=== PATIENT | male | born 1945 | race Caucasian/White ===

== ENCOUNTER → 2016-11-21 | Outpatient (CLI) | payer OTHER ==
[~2016-11-21] MED LIST: ALL180 PO; ALPR-411 PO; AMLO-114 PO; ASCA500 PO; ASCO500T16 PO; ASPEC81 PO; ASPI81TA28 PO; B-CO1CAP17 PO; B-COCAP2 PO; CALC-323 PO; CARV25TA2 PO; CYAN100T6 PO; CYCL0.052 OP; DOXA2TAB PO; DVN/160 PO; DVNC160 PO; FEXO1TAB46 PO; GFNSR600 PO; GLC/500 PO; HYDR25TA5 PO; LEVA1NEB20 INH; LEVA45AE INH; LEVO1TAB35 PO; MAGN400T6 PO; MAGNESIUM PO; MULT-506 PO; OXYC-57 PO; PLMINS INH; PRED10TA PO; PRLSR20 PO; PRT40 PO; PSEU60TA80 PO; SPIRONO/HCTZ PO; SPR25 PO; WARF2TAB PO; [UNRECOGNIZED DRUG - CODE] PO
== END | disposition home or self-care (01) ==
LOC: C.RDSM 13:47
PROVIDERS: ATTEND Physical Medicine & Rehabilitation Sports Medicine
DX: Z96.652 Presence of left artificial knee joint (principal)

== ENCOUNTER → 2016-12-21 | Outpatient (CLI) | payer OTHER | END | disposition home or self-care (01) | LOC: C.PATHSPEC 17:43 | PROVIDERS: ATTEND Podiatrist Foot & Ankle Surgery | DX: B07.0 Plantar wart (principal) ==

== ENCOUNTER 2017-01-31 11:30 | Inpatient (IN) | payer OTHER ==
[~2017-01-31] VITALS: Ht 177.8 cm; Wt 94.6 kg
[~2017-01-31 11:30] MED LIST changes: -ASCO500T16 PO; -ASPI81TA28 PO; -B-CO1CAP17 PO; -DVN/160 PO; -FEXO1TAB46 PO; -HYDR25TA5 PO; -LEVA45AE INH; -LEVO1TAB35 PO; -MAGN400T6 PO; -PLMINS INH; -PRED10TA PO; -PRT40 PO; -PSEU60TA80 PO; -SPR25 PO
[2017-01-31] MEDS ORDERED: ALBUT/IPRATROP 3MG/0.5MG NEB 3 ML VIAL INH STA (12:18)
[2017-01-31] MEDS: SODIUM CHLORIDE 0.9% 500ML 500 ML IV STA ×2 (12:18→13:01)
[2017-01-31 13:02] VITALS: PULSE 73; O2SAT 94
[2017-01-31] MEDS ORDERED: PSEU60TA80 PO (13:17)
[2017-01-31] MEDS ORDERED: B-CO1CAP17 PO (13:17)
[2017-01-31] MEDS ORDERED: DVN/160 PO (13:17)
[2017-01-31] MEDS ORDERED: MAGN400T6 PO (13:17)
[2017-01-31] MEDS ORDERED: FEXO1TAB46 PO (13:17)
[2017-01-31] MEDS ORDERED: ASPI81TA28 PO (13:17)
[2017-01-31] MEDS ORDERED: ASCO500T16 PO (13:17)
[2017-01-31] MEDS ORDERED: SPR25 PO (13:17)
[2017-01-31] MEDS ORDERED: HYDR25TA5 PO (13:17)
[2017-01-31] MEDS ORDERED: LEVA45AE INH (13:17)
[2017-01-31 13:41] LABS: ALT/SGPT 32 U/L (12-78); AST/SGOT 28 U/L (15-37); BLOOD UREA NITROGEN 12 mg/dl (7-18); BUN/CREATININE RATIO 13.1 (10-20); CALCIUM 9.4 mg/dl (8.5-10.1); CARBON DIOXIDE 29 mmol/L (21-32); CHLORIDE 94 mmol/L (98-107); CREATININE 0.94 mg/dl (0.60-1.40); GLUCOSE 101 mg/dl (70-99); POTASSIUM 3.8 mmol/L (3.5-5.1); SODIUM 132 mmol/L (136-145)
[2017-01-31 13:45] LABS: ALB/GLOB RATIO 1.1 (0.9-2); ALKALINE PHOSPHATASE 134 U/L (45-117)
--- NOTE | 2017-01-31 14:05 | EMERGENCY ROOM VISIT NOTE ---
ED Visit Note First contact with patient: 12:03 I did evaluate and examine this patient myself. I did guide management for the patient. I agree with the PA's assessment as discussed. Please see the PAs dictation for further details. I did independently review the 12-lead EKG, x- rays and blood work.
[2017-01-31] MEDS ORDERED: OPTIRAY 320 IV PRN (14:15)
[2017-01-31 14:30] LABS: BASO % 0.5 %; BASO ABS # 0.04 K/uL (0-0.2); COMPLETE YES; EOS % 11.4 %; HEMATOCRIT 36.7 % (42-52); IG% 0.3 %; LYMPH % 22.9 %; LYMPH ABS # 1.75 K/uL (1.2-3.4); MEAN CELL VOLUME 87.6 fL (80-100); MEAN CORPUSCULAR HEMOGLOBIN 31.7 pg (25-34); MEAN CORPUSCULAR HGB CONC 36.2 g/dl (32-36); MEAN PLATELET VOLUME 10.5 fL (7.4-10.4); MONO % 18.9 %; PLATELET COUNT 182 K/uL (130-400); RED BLOOD COUNT 4.19 M/uL (4.7-6.1); WHITE BLOOD COUNT 7.63 K/uL (4.8-10.8)
--- NOTE | 2017-01-31 14:33 | DIAGNOSTIC IMAGING REPORT ---
CHEST 2 VIEWS ROUTINE CLINICAL HISTORY: Cough, dyspnea COMPARISON STUDY: 08/26/2016 FINDINGS: The cardiac and mediastinal contours are normal. There is no evidence of focal pulmonary consolidation. There is no evidence of failure. No pleural effusions are visualized.[ There is subtle interstitial thickening with a basilar predominance. This is slightly more pronounced than on the prior study. IMPRESSION: Subtle interstitial thickening which appears slightly progressive. There is no focal pulmonary consolidation. Electronically signed by: Shin Agrawal M.D. 01/31/2017 2:31 PM Dictated Date/Time: 01/31/2017 2:25 PM
--- NOTE | 2017-01-31 15:33 | DIAGNOSTIC IMAGING REPORT ---
CHEST CTA for PULMONARY ARTERIES CT DOSE: 560.95 mGycm HISTORY: Chest pain dyspnea TECHNIQUE: Multiaxial CT images of the chest were performed following the intravenous administration of contrast to evaluate the pulmonary arteries. Maximal intensity projection images were also obtained. COMPARISON STUDY: 05/29/2006 FINDINGS: Pulmonary vasculature enhances appropriately. There are no significant pulmonary emboli. Mildly progressive hilar and mid mediastinal adenopathy. Hilar nodes in the right iliac stent 2 cm and on the left 1.6 cm. Mild esophageal wall thickening. Interval development of a nonspecific interstitial changes as well as mild peribronchial thickening of the mid to lower lung regions bilaterally. Subtle reticular nodular changes of both pulmonary apices. IMPRESSION: 1. Study is negative for pulmonary embolus. 2. Interval development of mild peribronchial thickening and interstitial change of the mid to lower lung regions bilaterally, most likely inflammatory. 3. Mildly progressive hilar adenopathy, possibly reactive. 4. This study should be repeated a later date to ensure resolution as well as exclude any possibility of progressive or residual adenopathy. 5.. Mild generalized esophageal wall thickening similar compared to the prior exam. Electronically signed by: Nishant Slater M.D. 01/31/2017 3:31 PM Dictated Date/Time: 01/31/2017 3:26 PM
[2017-01-31] MEDS ORDERED: METHYLPREDNISOLONE 125 MG VIAL IV STA (18:25)
[2017-01-31] MEDS ORDERED: PNEUMOCOCCAL POLYSACCHARIDES 25 MCG/0.5 ML VIAL/SYR IM. ONE (18:30)
[2017-01-31] MEDS ORDERED: PNEUMOCOCCAL ADMINISTRATION CHARGE ONE (18:30)
[2017-01-31] MEDS ORDERED: ONDANSETRON INJ 2 MG/ML 2 ML VIAL IV PRN (18:30)
[2017-01-31] MEDS ORDERED: INFLUENZA ADMINISTRATION CHARGE ONE (18:30)
[2017-01-31] MEDS ORDERED: ACETAMINOPHEN 325 MG TAB PO PRN (18:30)
[2017-01-31] MEDS ORDERED: INFLUENZA VIRUS QUAD VACCINE 0.5 ML SYR IM. ONE (18:30)
[2017-01-31] MEDS ORDERED: HydrALAZINE HCL 20 MG/ML VIAL IV. PRN (18:45)
[2017-01-31] MEDS ORDERED: LEVOFLOXACIN / D5W 750 MG in PREMIXED IN D5W 150 ML IV SCH (19:00)
[2017-01-31 20:03] LABS: INR 1.1 (0.9-1.1); PROTHROMBIN TIME (PATIENT) 11.4 SECONDS (9.0-12.0)
[2017-01-31] MEDS: LEVALBUTEROL 1.25MG/3ML NEB INH SCH (21:00)
[2017-01-31] MEDS ORDERED: ALPRAZOLAM 0.5 MG TAB PO SCH (21:00)
[2017-01-31] MEDS ORDERED: ENOXAPARIN 40 MG/0.4 ML SYR SC SCH (21:00)
[2017-01-31] MEDS: DOXAZosin MESYLATE TAB 2 MG TAB PO SCH (21:46)
[2017-01-31] MEDS: CALCIUM 600MG + VIT D 400 IU TAB PO SCH (21:47)
[2017-01-31] MEDS: VALSARTAN 80 MG TAB PO SCH (21:48)
[2017-01-31] MEDS: CARVEDILOL 25 MG TAB PO SCH (21:49)
[2017-01-31] MEDS ORDERED: GLUCAGON FOR INJ 1 MG VIAL SQ PRN (22:15)
[2017-01-31] MEDS ORDERED: GLUCOSE 40% GEL 15 GM TUBE PO PRN (22:15)
[2017-01-31] MEDS ORDERED: DEXTROSE 50% 50 ML SYR IV PRN (22:15)
[2017-01-31] MEDS ORDERED: GLUCOSE 10 TABS/TUBE PO PRN (22:15)
[2017-01-31] MEDS: NYSTATIN 500000 UNIT PO SCH (22:30)
[2017-01-31] MEDS: RESTASIS~ORDER AWAITING ACTION SCH ×2 (22:30→23:40)
--- NOTE | 2017-01-31 22:36 | History and Physical ---
History & Physical Date & Time of Service: Jan 31, 2017 at 21:57 Chief Complaint: Copd With Acute Exacerbation Primary Care Physician: Huang Frazier M.D. previously, but now changing to Dr. Ovidio Donald and has not seen him yet History of Present Illness Source: patient, spouse This patient is a 71-year-old male with history of COPD and asthma, chronic sinusitis, asthma with allergic rhinitis, GERD, generalized anxiety disorder, hyperglycemia, hypertension, lower extremity edema, migraines, obesity, obstructive sleep apnea, and peptic ulcer, who presents to the ER with persistent shortness of breath, cough, and wheezing. He reports the symptoms started about 4 days ago, but worsened significantly in the last 2 days. He was so short of breath 2 nights ago that he couldn't sleep and was coughing all night. Yesterday, he called his new PCP office and they called him and doxycycline, but he was not seen. He continued to feel worse and so came into the ER. His cough is productive of green sputum. He did have a subjective fever at home last evening, but did not take his temperature. He has had significant sinus drainage with yellow mucus and a lot of pressure in the maxillary and frontal regions bilaterally. He is also describing a constant chest tightness that wraps like a belt all the way underneath his ribs and around to the back. Because of this, the ER provider did a chest pain workup to include a negative troponin 2, and a CT angiogram of the chest which was negative for PE, but did show interval development of mild peribronchial thickening and interstitial change of the mid to lower lung regions bilaterally, most likely inflammatory. It also showed mildly progressive hilar adenopathy, possibly reactive. His ECG showed a possible inferior infarct, but this was unchanged from previous EKG. He received 1 hour continuous DuoNeb in the ER, but states that it almost made him feel worse because it made his heart race. He has to use Xopenex nebulizers only at home. He was not hypoxic in the ER but because he had continued shortness of breath and persistent cough, he was admitted for COPD/asthma exacerbation with possible superimposed atypical pneumonia and likely acute sinusitis. Past Medical/Surgical History Past medical history: COPD and asthma Chronic sinusitis Allergic rhinitis GERD/PUD Generalized anxiety disorder Diabetes mellitus type 2 Hypertension Migraines Obesity Obstructive sleep apnea Past surgical history: Bilateral rotator cuff repairs Left TKA Bilateral carpal tunnel release Sinus surgery 3 UPPP Family History Mother with CAD and hypertension Father and all siblings with hypertension Social History Smoking Status: Former Smoker (infrequent secondhand smoke exposure as he is a edwards in bars) Alcohol Use: socially (3 times a month) Drug Use: none Marital Status: Housing status: lives with family 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) Immunizations History of Influenza Vaccine: Unknown History of Tetanus Vaccine?: Unknown History of Pneumococcal: No History of Hepatitis B Vaccine: Unknown Multi-Drug Resistant Organisms History of MDRO: No Allergies Coded Allergies: Codeine (Verified Adverse Reaction, Mild, NAUSEA, 01/31/17) Erythromycin (Verified Adverse Reaction, Unknown, GI UPSET, 01/31/17) Meperidine (Verified Adverse Reaction, Unknown, gi upset, 01/31/17) Home Medications Scheduled Alprazolam (Xanax), 0.5 MG PO HS Amlodipine (Norvasc), 5 MG PO QAM Ascorbic Acid (Ascorbic Acid), 500 MG PO DAILY Aspirin (Aspirin Ec), 81 MG PO DAILY Calcium Citrate-Vitamin D (Citracal Maximum), 1 TAB PO BID Carvedilol (Coreg), 25 MG PO BID Cyanocobalamin (Vitamin B12 100 Mcg), 100 MCG PO QAM Cyclosporine (Ophth) (Restasis), 1 DROP OP BID Doxazosin Mesylate (Cardura), 2 MG PO BID Fexofenadine Hcl (Dagmar), 180 MG PO DAILY Hydrochlorothiazide (Hydrochlorothiazide), 1 TAB PO DAILY Levalbuterol Tartrate (Levalbuterol Tartrate Hfa), Unknown Dose INH BID Magnesium Oxide (Mag-Ox), 400 MG PO DAILY Metformin Hcl (Glucophage), 500 MG PO QAM Multivitamin (Multivitamin), 1 TAB PO QAM Nystatin (Bio-Statin), 1 TAB PO BID Omeprazole (Prilosec), 20 MG PO QAM Pseudoephedrine-Guaifenesin (Mucinex D), 600 MG PO BID Spironolactone (Spironolactone), 1 TAB PO DAILY Valsartan (Diovan), 1 TAB PO BID Vitamin B Cmplx/Vitc/Folic Ac (Nephrocaps), 1 CAP PO DAILY Review of Systems Constitutional: + chills, + fever Eyes: No problem reported ENT: + problem reported (sinus pressure and drainage with frontal headache), No sore throat Respiratory: + cough, + dyspnea on exertion, + shortness of breath, + sputum, + wheezing, No hemoptysis Cardiovascular: + chest pain (underneath ribs as per history of present illness ) Abdomen: No diarrhea, No nausea, No pain, No vomiting Genitourinary - Male: No problem reported Neurologic: No problem reported Psychiatric: + anxiety Endocrine: No problem reported Hematologic / Lymphatic: No problem reported Integumentary: + new/changing skin lesions (has a left breast lump that was evaluated earlier today as an outpatient with a normal mammogram and ultrasound) Allergic / Immunologic: + environmental allergies Physical Exam Vital Signs Date Time Temp Pulse Resp B/P Pulse Ox O2 Delivery O2 Flow Rate FiO2 01/31/17 19:33 57 01/31/17 19:18 60 18 153/84 94 Room Air 01/31/17 16:52 55 18 191/96 96 Room Air 01/31/17 14:52 53 20 143/97 94 Room Air 01/31/17 14:12 53 18 156/89 99 Nebulizer 01/31/17 13:44 60 20 167/92 99 Nebulizer 01/31/17 13:02 73 14 94 Room Air 01/31/17 12:59 60 22 158/96 95 Room Air 01/31/17 11:54 97 Room Air 01/31/17 11:54 61 20 164/96 97 Room Air 01/31/17 11:38 36.9 61 20 158/91 95 Room Air General Appearance: WD/WN, no apparent distress Head: normocephalic, atraumatic Eyes: normal inspection, PERRL, EOMI, sclerae normal ENT: normal ENT inspection, hearing grossly normal, TMs normal, pharynx normal , + nasal congestion, + pertinent finding (tenderness over bilateral maxillary and medial eyebrows) Neck: supple, no adenopathy, thyroid normal, no JVD, no carotid bruits, trachea midline Respiratory/Chest: no respiratory distress, no accessory muscle use, + crackles (at left base, slightly diminished breath sounds throughout, no wheezes) Cardiovascular: regular rate, rhythm, no edema, no gallop, no murmur, normal peripheral pulses Abdomen/GI: normal bowel sounds, non tender, soft, no organomegaly, no pulsatile mass Back: normal range of motion Extremities/Musculoskelatal: no calf tenderness, no pedal edema, normal range of motion Neurologic/Psych: alert, normal mood/affect, oriented x 3 Skin: normal color, warm/dry, no rash Lymphatic: no adenopathy Diagnostics Laboratory Results Results Past 24 Hours Test 01/31/17 12:50 01/31/17 12:55 01/31/17 16:20 01/31/17 19:40 Range/Units Influenza Type A Antigen Neg for Influ A NEG Influenza Type B Antigen Neg for Influ B NEG White Blood Count 7.63 4.8-10.8 K/uL Red Blood Count 4.19 4.7-6.1 M/uL Hemoglobin 13.3 14.0-18.0 g/dL Hematocrit 36.7 42-52 % Mean Corpuscular Volume 87.6 80-100 fL Mean Corpuscular Hemoglobin 31.7 25-34 pg Mean Corpuscular Hemoglobin Concent 36.2 32-36 g/dl Platelet Count 182 130-400 K/uL Mean Platelet Volume 10.5 7.4-10.4 fL Neutrophils (%) (Auto) 46.0 % Lymphocytes (%) (Auto) 22.9 % Monocytes (%) (Auto) 18.9 % Eosinophils (%) (Auto) 11.4 % Basophils (%) (Auto) 0.5 % Neutrophils # (Auto) 3.51 1.4-6.5 K/uL Lymphocytes # (Auto) 1.75 1.2-3.4 K/uL Monocytes # (Auto) 1.44 0.11-0.59 K/uL Eosinophils # (Auto) 0.87 0-0.5 K/uL Basophils # (Auto) 0.04 0-0.2 K/uL RDW Standard Deviation 39.0 36.4-46.3 fL RDW Coefficient of Variation 12.2 11.5-14.5 % Immature Granulocyte % (Auto) 0.3 % Immature Granulocyte # (Auto) 0.02 0.00-0.02 K/uL D-Dimer 1160 0-500 ug/L FEU Sodium Level 132 136-145 mmol/L Potassium Level 3.8 3.5-5.1 mmol/L Chloride Level 94 98-107 mmol/L Carbon Dioxide Level 29 21-32 mmol/L Anion Gap 9.0 3-11 mmol/L Blood Urea Nitrogen 12 7-18 mg/dl Creatinine 0.94 0.60-1.40 mg/dl Est Creatinine Clear Calc Drug Dose 83.5 ml/min Estimated GFR () 93.5 Estimated GFR (Non- 80.7 BUN/Creatinine Ratio 13.1 10-20 Random Glucose 101 70-99 mg/dl Calcium Level 9.4 8.5-10.1 mg/dl Total Bilirubin 0.5 0.2-1 mg/dl Aspartate Amino Transf (AST/SGOT) 28 15-37 U/L Alanine Aminotransferase (ALT/SGPT) 32 12-78 U/L Alkaline Phosphatase 134 45-117 U/L Troponin I < 0.015 < 0.015 0-0.045 ng/ml Total Protein 7.6 6.4-8.2 gm/dl Albumin 3.9 3.4-5.0 gm/dl Globulin 3.7 2.5-4.0 gm/dl Albumin/Globulin Ratio 1.1 0.9-2 Prothrombin Time 11.4 9.0-12.0 SECONDS Prothromb Time International Ratio 1.1 0.9-1.1 Microbiology Results 01/31/17 Group A Streptococcus Screen - Final, Resulted SPECIMEN NEGATIVE FOR GROUP A BETA ST... 01/31/17 Group A Streptococcus Screen ([facility]), Resulted Pending Diagnostic Radiology CHEST 2 VIEWS ROUTINE CLINICAL HISTORY: Cough, dyspnea COMPARISON STUDY: 08/26/2016 FINDINGS: The cardiac and mediastinal contours are normal. There is no evidence of focal pulmonary consolidation. There is no evidence of failure. No pleural effusions are visualized.[ There is subtle interstitial thickening with a basilar predominance. This is slightly more pronounced than on the prior study. IMPRESSION: Subtle interstitial thickening which appears slightly progressive. There is no focal pulmonary consolidation. CHEST CTA for PULMONARY ARTERIES CT DOSE: 560.95 mGycm HISTORY: Chest pain dyspnea TECHNIQUE: Multiaxial CT images of the chest were performed following the intravenous administration of contrast to evaluate the pulmonary arteries. Maximal intensity projection images were also obtained. COMPARISON STUDY: 05/29/2006 FINDINGS: Pulmonary vasculature enhances appropriately. There are no significant pulmonary emboli. Mildly progressive hilar and mid mediastinal adenopathy. Hilar nodes in the right iliac stent 2 cm and on the left 1.6 cm. Mild esophageal wall thickening. Interval development of a nonspecific interstitial changes as well as mild peribronchial thickening of the mid to lower lung regions bilaterally. Subtle reticular nodular changes of both pulmonary apices. IMPRESSION: 1. Study is negative for pulmonary embolus. 2. Interval development of mild peribronchial thickening and interstitial change of the mid to lower lung regions bilaterally, most likely inflammatory. 3. Mildly progressive hilar adenopathy, possibly reactive. 4. This study should be repeated a later date to ensure resolution as well as exclude any possibility of progressive or residual adenopathy. 5.. Mild generalized esophageal wall thickening similar compared to the prior exam. EKG Normal sinus rhythm, no acute ischemic changes, possible old inferior infarct unchanged from previous No change from prior EKG Impression Assessment and Plan This patient is a 71-year-old male with history of COPD and asthma, chronic sinusitis, asthma with allergic rhinitis, GERD, generalized anxiety disorder, diabetes mellitus type 2, hypertension, lower extremity edema, migraines, obesity, obstructive sleep apnea, and peptic ulcer, who presents to the ER with persistent shortness of breath, cough, and wheezing, admitted for COPD and asthma exacerbation that failed outpatient treatment. COPD/asthma exacerbation, possible superimposed atypical infection/hilar adenopathy--not hypoxic, with interstitial changes and reticulonodular changes and hilar adenopathy on CT chest. With sinusitis and subjective fever at home as well. -Start Levaquin 750 mg IV daily -Start IV Solu-Medrol 125 mg bolus followed by 60 mg IV every 8 hours -Consult his rand cementer for further evaluation -Continue Xopenex nebs only as per patient's request -May need to ambulate with oximetry prior to discharge to ensure no O2 requirement necessary -Check mycoplasma IgM and Legionella antigen - will need follow-up CT of the chest at the discretion of pulmonology to follow up on the enlarged hilar adenopathy Hypertension, chest pain- hypertensive here but now improved. Chest pain is purely musculoskeletal and related to his pulmonary issue. ECG is stable from previous and troponin is negative 2, CTA chest negative for pulmonary embolism -Continue home meds of carvedilol, hydrochlorothiazide, spironolactone, valsartan, amlodipine, doxazosin Diabetes mellitus type 2-hemoglobin A1c 6.6% last summer. He is going to be on IV steroids, hyperglycemia may ensue. -Sliding scale insulin and Accu-Cheks every before meals and at bedtime -Hold metformin given recent IV dye load for CT angiogram -Check hemoglobin A1c Generalized anxiety disorder-stable -Continue Xanax at bedtime Allergic rhinitis and chronic sinusitis-stable -Continue Dagmar-D -Continue nystatin which he takes for history of yeast sinusitis as per ENT DVT prophylaxis: Lovenox Disposition: Full code Level of Care Telemetry Resuscitation Status FULL RESUSCITATION VTE Prophylaxis VTE Risk Assessment Done? Y/N: Yes Risk Level: Low Additional Copies To Ovidio Donald D.O.Int.Med.
--- NOTE | 2017-01-31 22:41 | EMERGENCY ROOM VISIT NOTE ---
History First contact with patient: 12:03 Chief Complaint: FLU LIKE SX Stated Complaint: COPD WITH ACUTE EXACERBATION History of Present Illness The patient is a 71 year old male who presents to the Emergency Room via private vehicle with complaints of "wheezing, cough, congestion, fevers, chills , headache". The patient states that he was placed on penicillin this past Monday, which is 8 days ago. He states he is placed upon this for a potential infection on his left anterior chest. He states that this past he began with sinus drainage, that worsened and then settled into his chest. He states that he had trouble breathing, and then develop wheezing. He does have a history of COPD. He felt he could not catch his breath yesterday, and called his family doctor who then placed him up on doxycycline. He took his first dose of this last evening. He states that he went to bed last night could not breathe. He notes that he coughed nonstop. He states last night he did try a nebulizer treatment and then started coughing up dark green sputum. There is associated history of COPD, fever, chills, chest tightness and shortness of breath. He denies any history of pneumonia, abdominal pain, history of heart troubles or blood clots. Review of Systems A complete 10-point Review of Systems was discussed with the patient, with pertinent positives and negatives listed in the History of Present Illness. All remaining Review of Systems questions can be considered negative unless otherwise specified. Past Medical/Surgical History Medical Problems: (1) COPD with acute exacerbation (2) Left knee DJD Family History Diabetes, heart disease, high blood pressure. Social History Smoking Status: Former Smoker Drug Use: none Marital Status: Social History: Patient lives at home with and daughter. Current/Historical Medications Scheduled Alprazolam (Xanax), 0.5 MG PO HS Amlodipine (Norvasc), 5 MG PO QAM Ascorbic Acid (Ascorbic Acid), 500 MG PO DAILY Aspirin (Aspirin Ec), 81 MG PO DAILY Calcium Citrate-Vitamin D (Citracal Maximum), 1 TAB PO BID Carvedilol (Coreg), 25 MG PO BID Cyanocobalamin (Vitamin B12 100 Mcg), 100 MCG PO QAM Cyclosporine (Ophth) (Restasis), 1 DROP OP BID Doxazosin Mesylate (Cardura), 2 MG PO BID Fexofenadine Hcl (Dagmar), 180 MG PO DAILY Hydrochlorothiazide (Hydrochlorothiazide), 1 TAB PO DAILY Levalbuterol Tartrate (Levalbuterol Tartrate Hfa), Unknown Dose INH BID Magnesium Oxide (Mag-Ox), 400 MG PO DAILY Metformin Hcl (Glucophage), 500 MG PO QAM Multivitamin (Multivitamin), 1 TAB PO QAM Nystatin (Bio-Statin), 1 TAB PO BID Omeprazole (Prilosec), 20 MG PO QAM Pseudoephedrine-Guaifenesin (Mucinex D), 600 MG PO BID Spironolactone (Spironolactone), 1 TAB PO DAILY Valsartan (Diovan), 1 TAB PO BID Vitamin B Cmplx/Vitc/Folic Ac (Nephrocaps), 1 CAP PO DAILY Allergies Coded Allergies: Codeine (Verified Adverse Reaction, Mild, NAUSEA, 01/31/17) Erythromycin (Verified Adverse Reaction, Unknown, GI UPSET, 01/31/17) Meperidine (Verified Adverse Reaction, Unknown, gi upset, 01/31/17) Physical Exam Vital Signs Date Time Temp Pulse Resp B/P Pulse Ox O2 Delivery O2 Flow Rate FiO2 01/31/17 16:52 55 18 191/96 96 Room Air 01/31/17 14:52 53 20 143/97 94 Room Air 01/31/17 14:12 53 18 156/89 99 Nebulizer 01/31/17 13:44 60 20 167/92 99 Nebulizer 01/31/17 13:02 73 14 94 Room Air 01/31/17 12:59 60 22 158/96 95 Room Air 01/31/17 11:54 97 Room Air 01/31/17 11:54 61 20 164/96 97 Room Air 01/31/17 11:38 36.9 61 20 158/91 95 Room Air Pain Rating (0-10): 0 Physical Exam VITAL SIGNS - Vital signs and nursing notes were reviewed. Patient is afebrile , hypertensive at 158/91, non-tachycardic and saturating well on room air 95%. GENERAL -71-year-old male appearing his stated age who is in no acute distress. Communicates well with provider and answers questions appropriately. SKIN - Without rashes. No petechial rashes. HEAD - NC/AT. EYES - PERRL with EOMI bilaterally. Sclera anicteric. Palpebral conjunctiva pink and moist with no injection noted. EARS - No deformities of external structures noted on gross examination bilaterally. NOSE - Midline and without cyanosis. MOUTH/OROPHARYNX - Without perioral cyanosis. Buccal mucosa pink and moist and without leukoplakia. Tongue midline with equal elevation of palate bilaterally. No tonsillar hypertrophy, erythema, or exudates noted. NECK - Neck with FROM. No sign of meningitis. LUNGS - Chest wall symmetric without accessory muscle use, intercostals retractions, or central cyanosis. There is decreased breath sounds with wheezing. No rales or rhonchi. CARDIAC - RRR with S1/S2. No murmur, rubs, or gallops appreciated. ABDOMEN - Abdominal contour without pulsations or visible masses. BS normoactive all four quadrants. No tenderness, palpable masses, hepatosplenomegaly, or ascites noted. EXTREMITIES - No clubbing or peripheral cyanosis. No pretibial edema present. Medical Decision & Procedures ER Provider Diagnostic Interpretation: CHEST 2 VIEWS ROUTINE CLINICAL HISTORY: Cough, dyspnea COMPARISON STUDY: 08/26/2016 FINDINGS: The cardiac and mediastinal contours are normal. There is no evidence of focal pulmonary consolidation. There is no evidence of failure. No pleural effusions are visualized.[ There is subtle interstitial thickening with a basilar predominance. This is slightly more pronounced than on the prior study. IMPRESSION: Subtle interstitial thickening which appears slightly progressive. There is no focal pulmonary consolidation. Electronically signed by: Shin Agrawal M.D. 01/31/2017 2:31 PM Dictated Date/Time: 01/31/2017 2:25 PM CHEST CTA for PULMONARY ARTERIES CT DOSE: 560.95 mGycm HISTORY: Chest pain dyspnea TECHNIQUE: Multiaxial CT images of the chest were performed following the intravenous administration of contrast to evaluate the pulmonary arteries. Maximal intensity projection images were also obtained. COMPARISON STUDY: 05/29/2006 FINDINGS: Pulmonary vasculature enhances appropriately. There are no significant pulmonary emboli. Mildly progressive hilar and mid mediastinal adenopathy. Hilar nodes in the right iliac stent 2 cm and on the left 1.6 cm. Mild esophageal wall thickening. Interval development of a nonspecific interstitial changes as well as mild peribronchial thickening of the mid to lower lung regions bilaterally. Subtle reticular nodular changes of both pulmonary apices. IMPRESSION: 1. Study is negative for pulmonary embolus. 2. Interval development of mild peribronchial thickening and interstitial change of the mid to lower lung regions bilaterally, most likely inflammatory. 3. Mildly progressive hilar adenopathy, possibly reactive. 4. This study should be repeated a later date to ensure resolution as well as exclude any possibility of progressive or residual adenopathy. 5.. Mild generalized esophageal wall thickening similar compared to the prior exam. Electronically signed by: Nishant Slater M.D. 01/31/2017 3:31 PM Dictated Date/Time: 01/31/2017 3:26 PM Laboratory Results 01/31/17 12:55 Red Blood Count 4.19, Mean Corpuscular Volume 87.6, Mean Corpuscular Hemoglobin 31.7, Mean Corpuscular Hemoglobin Concent 36.2, Mean Platelet Volume 10.5, Neutrophils (%) (Auto) 46.0, Lymphocytes (%) (Auto) 22.9, Monocytes (%) (Auto) 18.9, Eosinophils (%) (Auto) 11.4, Basophils (%) (Auto) 0.5, Neutrophils # (Auto ) 3.51, Lymphocytes # (Auto) 1.75, Monocytes # (Auto) 1.44, Eosinophils # (Auto ) 0.87, Basophils # (Auto) 0.04 01/31/17 12:55 Test 01/31/17 12:50 01/31/17 12:55 01/31/17 16:20 Influenza Type A Antigen Neg for Influ A (NEG) Influenza Type B Antigen Neg for Influ B (NEG) White Blood Count 7.63 K/uL (4.8-10.8) Red Blood Count 4.19 M/uL (4.7-6.1) Hemoglobin 13.3 g/dL (14.0-18.0) Hematocrit 36.7 % (42-52) Mean Corpuscular Volume 87.6 fL (80-100) Mean Corpuscular Hemoglobin 31.7 pg (25-34) Mean Corpuscular Hemoglobin Concent 36.2 g/dl (32-36) Platelet Count 182 K/uL (130-400) Mean Platelet Volume 10.5 fL (7.4-10.4) Neutrophils (%) (Auto) 46.0 % Lymphocytes (%) (Auto) 22.9 % Monocytes (%) (Auto) 18.9 % Eosinophils (%) (Auto) 11.4 % Basophils (%) (Auto) 0.5 % Neutrophils # (Auto) 3.51 K/uL (1.4-6.5) Lymphocytes # (Auto) 1.75 K/uL (1.2-3.4) Monocytes # (Auto) 1.44 K/uL (0.11-0.59) Eosinophils # (Auto) 0.87 K/uL (0-0.5) Basophils # (Auto) 0.04 K/uL (0-0.2) RDW Standard Deviation 39.0 fL (36.4-46.3) RDW Coefficient of Variation 12.2 % (11.5-14.5) Immature Granulocyte % (Auto) 0.3 % Immature Granulocyte # (Auto) 0.02 K/uL (0.00-0.02) D-Dimer 1160 ug/L FEU (0-500) Anion Gap 9.0 mmol/L (3-11) Est Creatinine Clear Calc Drug Dose 83.5 ml/min Estimated GFR () 93.5 Estimated GFR (Non- 80.7 BUN/Creatinine Ratio 13.1 (10-20) Calcium Level 9.4 mg/dl (8.5-10.1) Total Bilirubin 0.5 mg/dl (0.2-1) Aspartate Amino Transf (AST/SGOT) 28 U/L (15-37) Alanine Aminotransferase (ALT/SGPT) 32 U/L (12-78) Alkaline Phosphatase 134 U/L (45-117) Total Protein 7.6 gm/dl (6.4-8.2) Albumin 3.9 gm/dl (3.4-5.0) Globulin 3.7 gm/dl (2.5-4.0) Albumin/Globulin Ratio 1.1 (0.9-2) Troponin I < 0.015 ng/ml (0-0.045) Medications Administered Medications (Trade) Dose Ordered Sig/Michelle Route Start Time Stop Time Status Last Admin Dose Admin Albuterol/ Ipratropium 12 ml 12 ml ONE STAT INH 01/31/17 12:18 01/31/17 12:21 DC 01/31/17 12:18 12 ML Sodium Chloride (Nss 500ml) 500 ml @ 500 mls/hr Q1H STAT IV 01/31/17 12:18 01/31/17 13:17 DC 01/31/17 13:01 500 MLS/HR Methylprednisolone Sodium Succinate (Solu-Medrol IV) 125 mg NOW STAT IV 01/31/17 18:25 01/31/17 18:48 DC 01/31/17 19:47 125 MG Medical Decision Patient was seen and evaluated as above. After obtaining a thorough history and physical examination the above workup was initiated. The patient presents with what appears to be an acute COPD exacerbation with chest pain and dyspnea. IV access is initiated and a CBC, CMP, albuterol therapy, troponin, half liter of normal saline influenza swab, strep screen and d-dimer were obtained. Monitor was applied continuous pulse ox was initiated. The patient was stable upon my examination. CBC reveals no leukocytosis, slight anemia noted. Coagulation studies within normal limits. D-dimer elevated at 1160. Sodium is low at 132, chloride is low at 94. Random glucose elevated at 101. Alkaline phosphatase is elevated at 134. Troponin negative 2. He is negative for the flu 2. Chest x-ray shows slight progression from previous. CT was obtained after d-dimer was elevated. He was dyspneic. The hour-long DuoNeb was not beneficial. CT scan results as above. These were discussed with the patient. No acute finding of PE. There was enlargement of lymph nodes which were discussed. He is to follow-up for this. Patient's EKG does not show a significant change from previous however there is questionable inferior infarct. EKG was sinus bradycardia, first-degree AV block at a rate of 59 bpm without ectopy or ischemic change at this current time. Did discuss the case thoroughly with my attending who also personally evaluated the patient. There is concern because the patient may be dyspneic they may be experiencing acute exacerbation of COPD but still continued to have chest tightness. I do believe that inpatient admission is warranted at this time. The case was discussed with Dr. Khan. This was discussed at 4:55 PM. She agreed to evaluate the patient. Please refer to further documentation regarding the patient's stay. I do believe that inpatient admission will be beneficial. In the evaluation and treatment of this patient the following differential diagnoses were entertained: Asthma, acute exacerbation of chronic COPD, pneumonia, pneumothorax, influenza, bronchitis, [place], PE, among others. Impression Primary Impression: Influenza-like symptoms Additional Impressions: COPD with acute exacerbation Anemia Departure Information Dispostion Admitted as an inpatient Condition FAIR Referrals Huang Frazier M.D. (PCP) Patient Instructions My [facility] Problem Qualifiers
[2017-01-31 23:25] VITALS: BP 158/90; PULSE 62; TEMP 36.8; O2SAT 92; Ht 177.8 cm; Wt 94.6 kg
[2017-02-01] VITALS (8 sets, daily range): BP systolic 133–163; BP diastolic 84–93; PULSE 76–101; TEMP 36.6; O2SAT 91–95
[2017-02-01] MEDS: LEVALBUTEROL 1.25MG/3ML NEB INH SCH ×3 (02:16→14:37)
[2017-02-01] MEDS: METHYLPREDNISOLONE IV 60 MG in SYRINGE 0 ML IV SCH ×2 (02:29→08:51)
[2017-02-01 05:52] LABS: BASO % 0.1 %; BASO ABS # 0.01 K/uL (0-0.2); COMPLETE YES; EOS % 0.1 %; HEMATOCRIT 37.1 % (42-52); IG% 0.3 %; LYMPH % 13.6 %; LYMPH ABS # 1.04 K/uL (1.2-3.4); MEAN CELL VOLUME 85.1 fL (80-100); MEAN CORPUSCULAR HEMOGLOBIN 31.2 pg (25-34); MEAN CORPUSCULAR HGB CONC 36.7 g/dl (32-36); MONO % 0.9 %; PLATELET COUNT 183 K/uL (130-400); RED BLOOD COUNT 4.36 M/uL (4.7-6.1); WHITE BLOOD COUNT 7.63 K/uL (4.8-10.8)
[2017-02-01 06:24] LABS: ALT/SGPT 32 U/L (12-78); AST/SGOT 22 U/L (15-37); BLOOD UREA NITROGEN 14 mg/dl (7-18); BUN/CREATININE RATIO 14.8 (10-20); CALCIUM 9.1 mg/dl (8.5-10.1); CARBON DIOXIDE 30 mmol/L (21-32); CHLORIDE 96 mmol/L (98-107); CREATININE 0.96 mg/dl (0.60-1.40); GLUCOSE 176 mg/dl (70-99); MAGNESIUM 1.7 mg/dl (1.8-2.4); POTASSIUM 3.8 mmol/L (3.5-5.1); SODIUM 134 mmol/L (136-145)
[2017-02-01 06:27] LABS: ALKALINE PHOSPHATASE 124 U/L (45-117); ESTIMATED AVERAGE GLUCOSE 137 mg/dl; HA1C FLAG Normal (Normal)
[2017-02-01] MEDS: CARVEDILOL 25 MG TAB PO SCH (07:59)
[2017-02-01] MEDS: DOXAZosin MESYLATE TAB 2 MG TAB PO SCH (08:00)
[2017-02-01] MEDS: VALSARTAN 80 MG TAB PO SCH (08:00)
[2017-02-01] MEDS: CALCIUM 600MG + VIT D 400 IU TAB PO SCH (08:00)
[2017-02-01] MEDS: RESTASIS~ORDER AWAITING ACTION SCH (08:00)
[2017-02-01] MEDS: NYSTATIN 500000 UNIT PO SCH (08:01)
[2017-02-01] MEDS: INSULIN ASPART 100 UNITS/ML 3 ML PEN SC SCH ×2 (08:12→13:39)
[2017-02-01] MEDS ORDERED: ASCORBIC ACID 500 MG TAB PO SCH (09:00)
[2017-02-01] MEDS ORDERED: NEPHROCAPS PO SCH (09:00)
[2017-02-01] MEDS ORDERED: CYANOCOBALAMIN 100 MCG TAB (VIT B-12) PO SCH (09:00)
[2017-02-01] MEDS ORDERED: AMLODIPINE BESYLATE 5 MG TAB PO SCH (09:00)
[2017-02-01] MEDS ORDERED: PANTOprazole SOD 40 MG TAB PO SCH (09:00)
[2017-02-01] MEDS ORDERED: MAGNESIUM OXIDE 400 MG TAB PO SCH (09:00)
[2017-02-01] MEDS ORDERED: SPIRONOLACTONE 25 MG TAB PO SCH (09:00)
[2017-02-01] MEDS ORDERED: FEXOFENADINE HCL 180 MG TAB PO SCH (09:00)
[2017-02-01] MEDS ORDERED: MULTIVITAMIN TAB PO SCH (09:00)
[2017-02-01] MEDS ORDERED: ASPIRIN 81 MG ECTAB PO SCH (09:00)
[2017-02-01] MEDS ORDERED: HYDROCHLOROTHIAZIDE 25 MG TAB PO SCH (09:00)
[2017-02-01] MEDS ORDERED: METFORMIN HCL 500 MG TAB PO SCH (09:00)
--- NOTE | 2017-02-01 12:01 | Hospitalist Progress Note ---
Hospitalist Progress Note Date of Service Feb 01, 2017. Subjective Pt evaluation today including: conversation w/ patient, physical exam, chart review, lab review, review of studies, review of inpatient medication list Voiding: no voiding problems Patient seen and evaluated. No acute events overnight. Patient reporting at his baseline at this time. Reports marked improvement since breathing treatment and IV steroid use. Patient has been ambulating without difficulty with adequate oxygenation on room air. Chest tightness is currently resolved. Stating cough is more productive. Prior to admission he was reporting inspiratory and expiratory wheezing which have resolved Tolerating diet without difficulty. Would like to return home today. No further complaints at this time. Constitutional: No chills, No fever ENT: + nasal symptoms, No sore throat, No trouble swallowing Respiratory: + cough, + sputum, No dyspnea at rest, No dyspnea on exertion, No wheezing Cardiovascular: No chest pain Abdomen: No constipation, No diarrhea, No nausea, No pain, No vomiting Musculoskeletal: No calf pain, No swelling Male : + urinary frequency, No dysuria Skin: No rash Medications Current Inpatient Medications Medications (Trade) Dose Ordered Sig/Michelle Route Start Time Stop Time Status Last Admin Dose Admin Ioversol 100 ml 100 ml UD PRN IV 01/31/17 14:15 02/04/17 14:14 Levofloxacin/Prmx (Levaquin / D5W/ Premixed D5W) 150 ml @ 100 mls/hr Q24H IV 01/31/17 19:00 02/07/17 18:59 01/31/17 19:47 100 MLS/HR Levalbuterol (Xopenex 1.25MG/ 3ML Neb) 1.25 mg Q6R INH 01/31/17 21:00 03/02/17 20:59 02/01/17 07:15 1.25 MG Enoxaparin Sodium (Lovenox Inj) 40 mg Q24H SC 01/31/17 21:00 03/02/17 20:59 01/31/17 21:46 40 MG Acetaminophen (Tylenol Tab) 650 mg Q4H PRN PO 01/31/17 18:30 03/02/17 18:29 Ondansetron HCl (Zofran Inj) 4 mg Q6H PRN IV 01/31/17 18:30 03/02/17 18:29 Alprazolam (Xanax Tab) 0.5 mg HS PO 01/31/17 21:00 03/02/17 20:59 01/31/17 21:44 0.5 MG Amlodipine Besylate (Norvasc Tab) 5 mg QAM PO 02/01/17 09:00 03/03/17 08:59 02/01/17 08:01 5 MG Ascorbic Acid (Vitamin C Tab) 500 mg DAILY PO 02/01/17 09:00 03/03/17 08:59 02/01/17 07:59 500 MG Aspirin (Ecotrin Tab) 81 mg DAILY PO 02/01/17 09:00 03/03/17 08:59 02/01/17 07:59 81 MG Carvedilol (Coreg Tab) 25 mg BID PO 01/31/17 21:00 03/02/17 20:59 02/01/17 07:59 25 MG Cyanocobalamin (Vitamin B-12 Tab) 100 mcg QAM PO 02/01/17 09:00 03/03/17 08:59 02/01/17 07:58 100 MCG Doxazosin Mesylate (Cardura Tab) 2 mg BID PO 01/31/17 21:00 03/02/17 20:59 02/01/17 08:00 2 MG Fexofenadine HCl (Dagmar Tab) 180 mg DAILY PO 02/01/17 09:00 03/03/17 08:59 02/01/17 07:59 180 MG Hydrochlorothiazide (Hydrochlorothiazide Tab) 25 mg DAILY PO 02/01/17 09:00 03/03/17 08:59 02/01/17 08:00 25 MG Magnesium Oxide (Mag-Ox Tab) 400 mg DAILY PO 02/01/17 09:00 03/03/17 08:59 02/01/17 07:59 400 MG Multivitamins (Multivitamin Tab) 1 tab QAM PO 02/01/17 09:00 03/03/17 08:59 02/01/17 07:59 1 TAB Spironolactone (Aldactone Tab) 25 mg DAILY PO 02/01/17 09:00 03/03/17 08:59 02/01/17 08:00 25 MG Valsartan (Diovan Tab) 160 mg BID PO 01/31/17 21:00 03/02/17 20:59 02/01/17 08:00 160 MG Vitamin B Complex/ Vit C/Folic Acid (Nephrocaps) 1 cap DAILY PO 02/01/17 09:00 03/03/17 08:59 02/01/17 07:59 1 CAP Calcium/Vitamin D (Caltrate Plus Tab) 1 tab BID PO 01/31/17 21:00 03/02/17 20:59 02/01/17 08:00 1 TAB Miscellaneous Information (Order Awaiting Action) 1 ea QS N/A 01/31/17 19:30 03/02/17 19:29 Nystatin (Mycostatin Tab) 500,000 unit BID PO 01/31/17 21:00 03/02/17 20:59 02/01/17 08:01 500,000 UNIT Pantoprazole Sodium (Protonix Tab) 40 mg QAM PO 02/01/17 09:00 03/03/17 08:59 02/01/17 07:58 40 MG Miscellaneous Information 1 ea 1 ea QS N/A 01/31/17 19:00 03/02/17 18:59 Methylprednisolone Sodium Succinate/ Syringe (Solu-Medrol IV/ Syringe) 0.96 ml @ 1.5 mls/min Q8H IV 02/01/17 02:00 03/03/17 01:59 02/01/17 08:51 1.5 MLS/MIN Hydralazine HCl (HydrALAZINE INJ) 10 mg Q8 PRN IV. 01/31/17 18:45 03/02/17 18:44 Insulin Aspart (novoLOG ASPART) SLIDING SCALE If C... ACHS SC 02/01/17 07:00 03/03/17 06:59 02/01/17 08:12 6 UNITS Glucose (Glucose 40% Gel) 15-30 GRAMS 15 GRAMS... UD PRN PO 01/31/17 22:15 03/02/17 22:14 Glucose (Glucose Chew Tab) 4-8 Tablets 4 Tabl... UD PRN PO 01/31/17 22:15 03/02/17 22:14 Dextrose (Dextrose 50% 50ML Syringe) 25-50ML OF 50% DW IV FOR... UD PRN IV 01/31/17 22:15 03/02/17 22:14 Glucagon (Glucagon Inj) 1 mg UD PRN SQ 01/31/17 22:15 03/02/17 22:14 Objective Vital Signs Date Time Temp Pulse Resp B/P Pulse Ox O2 Delivery O2 Flow Rate FiO2 02/01/17 09:30 93 Room Air 02/01/17 09:30 36.6 78 20 163/90 93 Room Air 02/01/17 09:04 36.6 101 20 91 02/01/17 08:42 36.6 101 20 154/92 91 Room Air 141/93 02/01/17 08:00 Room Air 02/01/17 07:15 98 16 94 Room Air 02/01/17 04:00 Room Air 02/01/17 03:55 36.6 76 18 133/84 91 Room Air 02/01/17 02:16 86 14 95 Room Air 02/01/17 00:00 Room Air 01/31/17 23:25 36.8 62 20 158/90 92 Room Air 01/31/17 21:40 63 18 147/81 94 Room Air 01/31/17 19:33 57 01/31/17 19:18 60 18 153/84 94 Room Air 01/31/17 16:52 55 18 191/96 96 Room Air 01/31/17 14:52 53 20 143/97 94 Room Air 01/31/17 14:12 53 18 156/89 99 Nebulizer 01/31/17 13:44 60 20 167/92 99 Nebulizer 01/31/17 13:02 73 14 94 Room Air 01/31/17 12:59 60 22 158/96 95 Room Air 01/31/17 11:54 97 Room Air 01/31/17 11:54 61 20 164/96 97 Room Air Physical Exam General Appearance: WD/WN, no apparent distress Eyes: sclerae normal ENT: hearing grossly normal Neck: supple, no adenopathy, no JVD, trachea midline Respiratory/Chest: lungs clear, normal breath sounds, no respiratory distress, no accessory muscle use Cardiovascular: regular rate, rhythm, no gallop, no murmur Abdomen: normal bowel sounds, non tender, soft Extremities: no pedal edema, no calf tenderness Neurologic/Psychiatric: alert, oriented x 3 Skin: normal color, warm/dry Laboratory Results Last 24 Hours Test 01/31/17 12:50 01/31/17 12:55 01/31/17 16:20 01/31/17 19:40 Influenza Type A Antigen Neg for Influ A Influenza Type B Antigen Neg for Influ B White Blood Count 7.63 K/uL Red Blood Count 4.19 M/uL Hemoglobin 13.3 g/dL Hematocrit 36.7 % Mean Corpuscular Volume 87.6 fL Mean Corpuscular Hemoglobin 31.7 pg Mean Corpuscular Hemoglobin Concent 36.2 g/dl Platelet Count 182 K/uL Mean Platelet Volume 10.5 fL Neutrophils (%) (Auto) 46.0 % Lymphocytes (%) (Auto) 22.9 % Monocytes (%) (Auto) 18.9 % Eosinophils (%) (Auto) 11.4 % Basophils (%) (Auto) 0.5 % Neutrophils # (Auto) 3.51 K/uL Lymphocytes # (Auto) 1.75 K/uL Monocytes # (Auto) 1.44 K/uL Eosinophils # (Auto) 0.87 K/uL Basophils # (Auto) 0.04 K/uL RDW Standard Deviation 39.0 fL RDW Coefficient of Variation 12.2 % Immature Granulocyte % (Auto) 0.3 % Immature Granulocyte # (Auto) 0.02 K/uL D-Dimer 1160 ug/L FEU Sodium Level 132 mmol/L Potassium Level 3.8 mmol/L Chloride Level 94 mmol/L Carbon Dioxide Level 29 mmol/L Anion Gap 9.0 mmol/L Blood Urea Nitrogen 12 mg/dl Creatinine 0.94 mg/dl Est Creatinine Clear Calc Drug Dose 83.5 ml/min Estimated GFR () 93.5 Estimated GFR (Non- 80.7 BUN/Creatinine Ratio 13.1 Random Glucose 101 mg/dl Calcium Level 9.4 mg/dl Total Bilirubin 0.5 mg/dl Aspartate Amino Transf (AST/SGOT) 28 U/L Alanine Aminotransferase (ALT/SGPT) 32 U/L Alkaline Phosphatase 134 U/L Troponin I < 0.015 ng/ml < 0.015 ng/ml Total Protein 7.6 gm/dl Albumin 3.9 gm/dl Globulin 3.7 gm/dl Albumin/Globulin Ratio 1.1 Prothrombin Time 11.4 SECONDS Prothromb Time International Ratio 1.1 Test 02/01/17 05:15 02/01/17 06:36 02/01/17 11:23 White Blood Count 7.63 K/uL Red Blood Count 4.36 M/uL Hemoglobin 13.6 g/dL Hematocrit 37.1 % Mean Corpuscular Volume 85.1 fL Mean Corpuscular Hemoglobin 31.2 pg Mean Corpuscular Hemoglobin Concent 36.7 g/dl Platelet Count 183 K/uL Mean Platelet Volume 10.0 fL Neutrophils (%) (Auto) 85.0 % Lymphocytes (%) (Auto) 13.6 % Monocytes (%) (Auto) 0.9 % Eosinophils (%) (Auto) 0.1 % Basophils (%) (Auto) 0.1 % Neutrophils # (Auto) 6.48 K/uL Lymphocytes # (Auto) 1.04 K/uL Monocytes # (Auto) 0.07 K/uL Eosinophils # (Auto) 0.01 K/uL Basophils # (Auto) 0.01 K/uL RDW Standard Deviation 37.0 fL RDW Coefficient of Variation 11.9 % Immature Granulocyte % (Auto) 0.3 % Immature Granulocyte # (Auto) 0.02 K/uL Sodium Level 134 mmol/L Potassium Level 3.8 mmol/L Chloride Level 96 mmol/L Carbon Dioxide Level 30 mmol/L Anion Gap 8.0 mmol/L Blood Urea Nitrogen 14 mg/dl Creatinine 0.96 mg/dl Est Creatinine Clear Calc Drug Dose 80.3 ml/min Estimated GFR () 91.2 Estimated GFR (Non- 78.7 BUN/Creatinine Ratio 14.8 Random Glucose 176 mg/dl Estimated Average Glucose 137 mg/dl Hemoglobin A1c 6.4 % Calcium Level 9.1 mg/dl Magnesium Level 1.7 mg/dl Total Bilirubin 0.4 mg/dl Direct Bilirubin < 0.1 mg/dl Aspartate Amino Transf (AST/SGOT) 22 U/L Alanine Aminotransferase (ALT/SGPT) 32 U/L Alkaline Phosphatase 124 U/L Total Protein 7.4 gm/dl Albumin 3.6 gm/dl Bedside Glucose 166 mg/dl 168 mg/dl Assessment and Plan This patient is a 71-year-old male with history of COPD, chronic sinusitis, asthma with allergic rhinitis, GERD, generalized anxiety disorder, diabetes mellitus type 2, hypertension, lower extremity edema, migraines, obesity, obstructive sleep apnea, and peptic ulcer, who presents to the ER with persistent shortness of breath, cough, and wheezing, admitted for COPD and asthma exacerbation that failed outpatient treatment. Acute COPD/Asthma Exacerbation with Sinusitis: IMPROVING - Question of superimposed atypical infection/hilar adenopathy - suggested on chest CT - Mycoplasma IgM and Legionella - pending - Levaquin 750 mg IV daily - Methylprednisolone 60 mg IV Q8H - Xopenex nebs - Dagmar 180 mg daily and Mycostatin BID (H/O yeast sinusitis per ENT) - Consult pulmonology - recommendations appreciated -- F/U chest CT per pulmonary discretion - monitoring of enlarged hilar adenopathy HTN: - Amlodipine 5 mg daily, Coreg 25 mg BID, Doxazosin 2 mg BID, HCTZ 25 mg daily, spironolactone 25 mg daily, valsartan 160 mg BID T2DM: HbA1c 6.4 - Hold metformin due to IV contrast - SSI and BSG ACHS - anticipate hyperglycemia secondary to steroids Generalized Anxiety Disorder: - Xanax 0.5 mg daily DVT Prophylaxis: Lovenox 40 mg SC daily Disposition: Probable discharge today versus tomorrow to home Discharge planning: home
--- NOTE | 2017-02-01 12:37 | PULMONARY CONSULTATION ---
DATE OF CONSULTATION: 02/01/2017 DATE OF CONSULTATION: 02/01/2017. TIME: 11:20 a.m. REPORT OF CONSULTATION: The patient was seen in room 457 bed 2. He is a 71-year-old male who was admitted on the with cough and shortness of breath. Mr. Connor has a history of asthmatic bronchitis and COPD for 10-15 years. He had been stable at the last office visit through [facility] as of December. About 4 days before admission he started to have some sinus symptoms. He was having some sinus headaches and drainage. Subsequently, he developed an increased cough. On Monday, the cough was as the patient describes it nonstop. 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 He seemed to get worse. His symptoms progressed. He ultimately came to the Emergency Room yesterday morning. He has been expectorating mucus that is green in color. The mucous color has improved. It is a thermal engineer green and now yellow. He has not coughed up any blood at any time. The quantity of mucus seems to be lessening. He is feeling much better today. He feels less congested in his chest. The patient has obstructive sleep apnea. Because of his symptoms recently, he has had difficulty wearing his CPAP at night. He has been on CPAP since September 2016. Review of the records show that he had an apnea hypopnea index of 22 and his CPAP pressures are 10 cm. He is moderately comfortable with the CPAP but not perfectly comfortable. Some nights he just has difficulty falling asleep. He admits that he has anxiety and this also contributes to his insomnia. When he is on steroids he has worsening insomnia. He also gets heartburn despite taking medications regularly. He states he will have to take antacids in addition to the proton pump inhibitor type of medicines that he has been on. The patient currently states he feels dramatically better and is hoping to go home. He has been up ambulating without too much difficulty. The patient has not smoked since a teenager. 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 Alcohol use is described as occasional. He typically only drinks when he has a music performance. He acknowledges he may use some alcohol to relax. PAST SURGICAL HISTORY: 1. UPPP surgery about 10 years ago. 2. Sinus surgery x3. 3. Right and left carpal tunnel. 4. Left total knee replacement. 5. Right and left rotator cuff surgeries. PAST MEDICAL HISTORY: 1. Peptic ulcer disease. 2. Migraine headaches. 3. Hypertension. 4. Hyperglycemia. 5. Anxiety. 6. Reflux as noted. 7. Sinusitis. ALLERGIES: LISTED ALLERGIES TO CODEINE, ERYTHROMYCIN, AND MEPERIDINE. All of these are GI upset rather than true allergies. FAMILY HISTORY: Positive for coronary artery disease and hypertension in his mother and hypertension in his father. 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 He states he had asbestos exposure, but only years ago when he was very young. HOME MEDICATIONS: 1. Alprazolam 0.5 mg at bedtime. 2. Amlodipine 5 mg daily. 3. Ascorbic acid 500 mg daily. 4. Aspirin 81 mg daily. 5. Calcium D b.i.d. 6. Carvedilol 25 mg b.i.d. 7. Vitamin B12 daily. 8. Restasis b.i.d. 9. Cardura 2 mg b.i.d. 10. Hydrochlorothiazide 1 daily. 11. Nebulizer treatments with Xopenex 2 or more times per day as needed. 12. Magnesium oxide 400 mg daily. 13. Glucophage 500 mg daily. 14. Nystatin b.i.d. 15. Omeprazole 20 mg daily. 16. Mucinex D b.i.d. 17. Spironolactone 1 daily. 18. Diovan b.i.d. REVIEW OF SYSTEMS: GENERAL: The patient's energy level is good. NEUROLOGIC: He denies syncope or near syncope. OPHTHALMIC: He denies visual complaints. He has some degree of chronic nasal congestion. He states he has had allergy testing and he has numerous allergies. He does get allergy shots. He has had no chest pains. He denies chills, fevers or sweats. PULMONARY: History is as noted. He states he has had at least 1 bronchoscopy in the past. GASTROINTESTINAL: Denies GI complaints except for the reflux. GENITOURINARY: Denies urinary problems. DERMATOLOGIC: Denies rashes. Denies adenopathy. PHYSICAL EXAMINATION: GENERAL: The patient is a 71-year-old male who looks well for his age. He was cooperative, alert and oriented. He was in no distress. He was coughing periodically. VITAL SIGNS: Temperature is 36.6. EYES: Exam showed cataracts bilaterally. Nares were mildly congested. MOUTH: Exam showed that the uvula is still present. It is slightly irregular. NECK: Palpation of the neck reveals no lymph nodes. CHEST: Was of normal expansion. HEART: Cardiac rate is 78 per minute. The rhythm is regular. Blood pressure 163/90. Respiratory rate was 20 breaths per minute. The breath sounds were mildly diminished. Mild wheeze or rhonchi could be heard with forced vital capacity maneuver. Oxygen saturation on room air is 93%. ABDOMEN: Soft. It was nontender. No masses were palpable. Good bowel sounds were heard. EXTREMITIES: Showed no cyanosis, clubbing or edema. LABORATORY DATA: White count 7.63. Hemoglobin 13.6. Platelets 183,000. D-dimer was 1160. INR is 1.1. Electrolytes show sodium 134, potassium 3.8, chloride 96, bicarbonate 30. BUN was 14 with a creatinine of 0.96. Blood sugar this morning 166. Hemoglobin A1c was 6.4. Magnesium was low at 1.7. Albumin was 3.6 and total protein 7.4. Flu test was negative. The patient's chest x-ray showed mild interstitial prominence. A CAT scan of the chest showed no evidence of pulmonary embolic disease. There was mild interstitial changes with peribronchial thickening in the mid to lower lung hobbs. He has mild hilar adenopathy on the right. IMPRESSIONS: 1. Acute asthmatic bronchitis with underlying asthma/chronic obstructive pulmonary disease. 2. Gastroesophageal reflux disease. 3. Right hilar adenopathy. 4. Obstructive sleep apnea. 5. Hypomagnesemia. COMMENTS AND RECOMMENDATIONS: The patient apparently is feeling much better. I suspect this is mainly related to the methylprednisolone. In the past, apparently he had problems with many of the maintenance inhalers. It was difficult to determine exactly what had happened or if they just did not work for him. I mentioned to him Advair, Symbicort and other inhalers. I believe it might be of benefit to arrange for him to have budesonide to use by nebulizer b.i.d. Would use the 0.5 dosage. It could be that his uncontrolled reflux is also contributing to his asthma-like symptoms. The patient acknowledges that he does not watch his diet carefully. He has been on omeprazole once a day. Upon discharge, I would suggest that the omeprazole be given b.i.d. to see if that helps the reflux symptoms any. There is an abnormal CAT scan as noted. He will need to have a follow-up CAT scan. I probably would wait 3-4 months to do that. The patient is very anxious for discharge. He seems a lot better today but obviously he could have problems when the steroids are weaned. No doubt he will be switched over to prednisone and weaned over a period of time. If he goes home today I suggested he should follow up with Gonzalo Arizmendi in 1-2 weeks. Gonzalo usually sees him for his respiratory issues. Thank you for asking me to assist in his care.
--- NOTE | 2017-02-01 13:55 | Discharge Instructions ---
Discharge Instructions Date of Service Feb 01, 2017. Admission Reason for Admission: Copd With Acute Exacerbation Discharge Discharge Diagnosis / Problem: Acute COPD Exacerbation Discharge Goals Goal(s): Decrease discomfort, Improve function, Increase independence Activity Recommendations Activity Limitations: resume your previous activity . Instructions / Follow-Up Instructions / Follow-Up This patient is a 71-year-old male with history of COPD, chronic sinusitis, asthma with allergic rhinitis, GERD, generalized anxiety disorder, diabetes mellitus type 2, hypertension, lower extremity edema, migraines, obesity, obstructive sleep apnea, and peptic ulcer, who presents to the ER with persistent shortness of breath, cough, and wheezing, admitted for COPD and asthma exacerbation that failed outpatient treatment. Acute COPD/Asthma Exacerbation with Sinusitis: IMPROVING - You will be given a prescription for a steroid taper -- Take Prednisone 60 mg daily x 2 days, then 50 mg daily x 2 days, then 40 mg daily x 2 days, then 30 mg daily x 2 days, then 20 mg daily x 2 days then 10 mg daily x 2 days - Continue Levaquin 750 mg daily (take dose today 02/01) to finish a 7 day course - You will be provided with a prescription for Budesonide nebulizer to use twice a day - Please follow-up with Gonzalo Arizmendi PA-C in 7-10 days - You will need a follow-up Chest CT to evaluate the enlarge lymph nodes which is likely due to the inflammation and currently respiratory illness Heart Burn: - You will be given a prescription for Protonix 40 mg to take twice a day for heart burn as this may be contributing to your symptoms. - You can continue this until your follow-up and you may be put back on your [facility] T2DM: HbA1c 6.4 - You received contrast for your chest CT - HOLD YOUR METFORMIN UNTIL 02/02/17 at 3:30 PM and may then resume - Avoid sweets and high carbohydrate foods until you can resume your Metformin - it is important to not take this medication as contrast and metformin together can be harsh on the kidneys Current Hospital Diet Patient's current hospital diet: Diabetes Type 2 Diet Discharge Diet Recommended Diet: Diabetes Type 2 Diet Pending Studies Studies pending at discharge: no Laboratory Results Hemoglobin A1c Test 02/01/17 05:15 Range/Units Estimated Average Glucose 137 mg/dl Hemoglobin A1c 6.4 H 4.5-5.6 % Medical Emergencies . Who to Call and When: Medical Emergencies: If at any time you feel your situation is an emergency, please call 911 immediately. . Non-Emergent Contact Non-Emergency issues call your: Primary Care Provider Call Non-Emergent contact if: you have a fever, your pain is concerning you, you have any medication questions . . "Provider Documentation" section prepared by Apolonia Abdi. VTE Core Measure Inpt VTE Proph given/why not?: Enoxaparin (Lovenox)SQ
[2017-02-01] MEDS ORDERED: LEVO1TAB35 PO (14:10)
[2017-02-01] MEDS ORDERED: PRT40 PO (14:10)
[2017-02-01] MEDS ORDERED: PLMINS INH (14:10)
[2017-02-01] MEDS ORDERED: PRED10TA PO (14:10)
--- NOTE | 2017-02-01 15:15 | Discharge Summary ---
Discharge Summary Date of Service Feb 01, 2017. Discharge Summary Admission Date: Jan 31, 2017 at 18:36 Discharge Date: Feb 01, 2017 Discharge Disposition: Home Principal Diagnosis: Acute COPD Exacerbation Problems/Secondary Diagnoses: Medical Problems: (1) COPD with acute exacerbation (2) Left knee DJD Immunizations: Have You Had Influenza Vaccine: Unknown History of Tetanus Vaccine?: Unknown History of Pneumococcal: No History of Hepatitis B Vaccine: Unknown Procedures: 1. CHEST 2 VIEWS ROUTINE CLINICAL HISTORY: Cough, dyspnea COMPARISON STUDY: 08/26/2016 FINDINGS: The cardiac and mediastinal contours are normal. There is no evidence of focal pulmonary consolidation. There is no evidence of failure. No pleural effusions are visualized.[ There is subtle interstitial thickening with a basilar predominance. This is slightly more pronounced than on the prior study. IMPRESSION: Subtle interstitial thickening which appears slightly progressive. There is no focal pulmonary consolidation. 2. CHEST CTA for PULMONARY ARTERIES CT DOSE: 560.95 mGycm HISTORY: Chest pain dyspnea TECHNIQUE: Multiaxial CT images of the chest were performed following the intravenous administration of contrast to evaluate the pulmonary arteries. Maximal intensity projection images were also obtained. COMPARISON STUDY: 05/29/2006 FINDINGS: Pulmonary vasculature enhances appropriately. There are no significant pulmonary emboli. Mildly progressive hilar and mid mediastinal adenopathy. Hilar nodes in the right iliac stent 2 cm and on the left 1.6 cm. Mild esophageal wall thickening. Interval development of a nonspecific interstitial changes as well as mild peribronchial thickening of the mid to lower lung regions bilaterally. Subtle reticular nodular changes of both pulmonary apices. IMPRESSION: 1. Study is negative for pulmonary embolus. 2. Interval development of mild peribronchial thickening and interstitial change of the mid to lower lung regions bilaterally, most likely inflammatory. 3. Mildly progressive hilar adenopathy, possibly reactive. 4. This study should be repeated a later date to ensure resolution as well as exclude any possibility of progressive or residual adenopathy. 5.. Mild generalized esophageal wall thickening similar compared to the prior exam. Consultations: 1. Pulmonology Medication Reconciliation New Medications: Budesonide (Budesonide) 0.5 Mg/2 Ml Nebu 0.25 MG INH BID for 14 Days, 2 Refills Levofloxacin (Levaquin) 750 Mg Tab 750 MG PO DAILY for 6 Days, TAB Start dose today 02/01 Prednisone Tab (Prednisone) 10 Mg Tab 10 MG PO DAILY, #42 TAB Take 60 mg daily x 2 days then 50 mg daily x 2 days then 40 mg daily x 2 days then 30 mg daily x 2 days then 20 mg daily x 2 days then 10 mg daily x 2 days Pantoprazole (Pantoprazole Sodium) 40 Mg Tab 40 MG PO BID for 30 Days, TAB Continued Medications: Alprazolam (Xanax) 0.5 Mg Tab 0.5 MG PO HS, 0 Refills Amlodipine (Norvasc) 10 Mg Tab 5 MG PO QAM, TAB Ascorbic Acid (Ascorbic Acid) 500 Mg Tab 500 MG PO DAILY, TAB Aspirin (Aspirin Ec) 81 Mg Tab 81 MG PO DAILY Calcium Citrate-Vitamin D (Citracal Maximum) 1 Tab Tab 1 TAB PO BID Carvedilol (Coreg) 25 Mg Tab 25 MG PO BID, TAB Cyanocobalamin (Vitamin B12 100 Mcg) 100 Mcg Tab 100 MCG PO QAM, TAB Cyclosporine (Ophth) (Restasis) 0.05 % Emu 1 DROP OP BID, BTL Doxazosin Mesylate (Cardura) 2 Mg Tab 2 MG PO BID, TAB Fexofenadine Hcl (Dagmar) 180 Mg Tab 180 MG PO DAILY, TAB Hydrochlorothiazide (Hydrochlorothiazide) 25 Mg Tab 1 TAB PO DAILY Levalbuterol Tartrate (Levalbuterol Tartrate Hfa) 45 Mcg/Act Aer Unknown Dose INH BID Magnesium Oxide (Mag-Ox) 400 Mg Tab 400 MG PO DAILY, TAB Metformin Hcl (Glucophage) 500 Mg Tab 500 MG PO QAM, TAB Multivitamin (Multivitamin) Tab 1 TAB PO QAM, 0 Refills Nystatin (Bio-Statin) 500,000 Unit Cap 1 TAB PO BID Pseudoephedrine-Guaifenesin (Mucinex D) 1 Tab Tab 600 MG PO BID for 10 Days, TAB Spironolactone (Spironolactone) 25 Mg Tab 1 TAB PO DAILY Valsartan (Diovan) 160 Mg Tab 1 TAB PO BID for 30 Days, #60 TAB 5 Refills Vitamin B Cmplx/Vitc/Folic Ac (Nephrocaps) Cap 1 CAP PO DAILY for 30 Days, #30 CAP 11 Refills Discontinued Medications: Omeprazole (Prilosec) 20 Mg Capcr 20 MG PO QAM, 0 Refills Discharge Exam REVIEW OF SYSTEMS: Constitutional: No chills, No fever ENT: + nasal symptoms, No sore throat, No trouble swallowing Respiratory: + cough, + sputum, No dyspnea at rest, No dyspnea on exertion, No wheezing Cardiovascular: No chest pain Abdomen: No constipation, No diarrhea, No nausea, No pain, No vomiting Musculoskeletal: No calf pain, No swelling Male : + urinary frequency, No dysuria Skin: No rash PHYSICAL EXAM General Appearance: WD/WN, no apparent distress Eyes: sclerae normal ENT: hearing grossly normal Neck: supple, no adenopathy, no JVD, trachea midline Respiratory/Chest: lungs clear, normal breath sounds, no respiratory distress, no accessory muscle use Cardiovascular: regular rate, rhythm, no gallop, no murmur Abdomen: normal bowel sounds, non tender, soft Extremities: no pedal edema, no calf tenderness Neurologic/Psychiatric: alert, oriented x 3 Skin: normal color, warm/dry Hospital Course ADMISSION: This patient is a 71-year-old male with history of COPD and asthma, chronic sinusitis, asthma with allergic rhinitis, GERD, generalized anxiety disorder, hyperglycemia, hypertension, lower extremity edema, migraines, obesity , obstructive sleep apnea, and peptic ulcer, who presents to the ER with persistent shortness of breath, cough, and wheezing. He reports the symptoms started about 4 days ago, but worsened significantly in the last 2 days. He was so short of breath 2 nights ago that he couldn't sleep and was coughing all night. Yesterday, he called his new PCP office and they called him and doxycycline, but he was not seen. He continued to feel worse and so came into the ER. His cough is productive of green sputum. He did have a subjective fever at home last evening, but did not take his temperature. He has had significant sinus drainage with yellow mucus and a lot of pressure in the maxillary and frontal regions bilaterally. He is also describing a constant chest tightness that wraps like a belt all the way underneath his ribs and around to the back. Because of this, the ER provider did a chest pain workup to include a negative troponin 2, and a CT angiogram of the chest which was negative for PE, but did show interval development of mild peribronchial thickening and interstitial change of the mid to lower lung regions bilaterally , most likely inflammatory. It also showed mildly progressive hilar adenopathy , possibly reactive. His ECG showed a possible inferior infarct, but this was unchanged from previous EKG. He received 1 hour continuous DuoNeb in the ER, but states that it almost made him feel worse because it made his heart race. He has to use Xopenex nebulizers only at home. He was not hypoxic in the ER but because he had continued shortness of breath and persistent cough, he was admitted for COPD/asthma exacerbation with possible superimposed atypical pneumonia and likely acute sinusitis. HOSPITAL COURSE: Mr. Connor was admitted for an acute COPD/asthma exacerbation superimposed on sinusitis. He was initially treated with Solu-Medrol 125 mg IV 1 dose and converted to Solu-Medrol 60 mg IV Q8H. He was given a prescription for a prednisone taper of 60 mg daily x 2 days and to decrease by 10 mg every two days. Nebulizer treatments were implemented and patient reports marked improvement. He was started on Levaquin 750 mg IV daily with a prescription for Levaquin 750 mg po 6 more days. He was evaluated by pulmonology who recommended implementation of budesonide and better GERD control. This medication was ran through his insurance with associated co-pay involved. Therefore he was given a prescription for Budesonide 0.25/2mL INH neb BID x 14 days with 2 refills (copay $21). His omeprazole was discontinued. He was prescribed Protonix 40 mg BID which can be reevaluated at follow-up visit. All home respiratory and allergy medications continued as previously prescribed. Upon admission, patient without episodes of hypoxia and has had adequate oxygenation on room air. Has been afebrile without leukocytosis. Upon admission, patient complained of chest tightness which has resolved and it appears to be musculoskeletal/respiratory in nature. However, cardiac enzymes were trended and negative and overnight telemetry monitoring implemented with no abnormal findings. Patient was instructed due to IV contrast from CTA that he must hold his metformin for 48 hours. He was instructed to avoid high carb foods until reinstitution. It was recommended for patient to remain hospitalized throughout the day to make sure adequate control with steroid implementation. This would have been ideal for adequate po conversion and stabilization. However, at this time patient would like to return home and ultimately is optimal for outpatient continued therapy and follow-up. He is not experiencing shortness of breath, exertional SOB, or wheezing. He was instructed to follow-up with pulmonology (his PCP) in 7-10 days. DVT Prophylaxis: Lovenox 40 mg SC daily Disposition: - Mycoplasma IgM and Legionella - pending - F/U chest CT 3-4 months- monitoring of enlarged hilar adenopathy - Patient requested hep C screening - pending Total Time Spent: Greater than 30 minutes This includes examination of the patient, discharge planning, medication reconciliation, and communication with other providers. Discharge Instructions Please refer to the electronic Patient Visit Report (Discharge Instructions) for additional information. Additional Copies To Ovidio Donald D.O. Pulmonary; Gonzalo Arizmendi PA-C
== END 2017-02-01 14:49 | disposition home or self-care (01) | DRG 192 ==
LOC: ENRESERVTM → ENRESERVDT → C.EDB 11:34 → C.EDINP 18:36 → C.2T 22:54 → C.MS4W 02-01 08:33
PROVIDERS: ADMIT Family Medicine; ATTEND Family Medicine
DX: J44.1 Chronic obstructive pulmonary disease with (acute) exacerbation (principal); K21.9 Gastro-esophageal reflux disease without esophagitis; G47.33 Obstructive sleep apnea (adult) (pediatric); E66.9 Obesity, unspecified; R59.0 Localized enlarged lymph nodes; D64.9 Anemia, unspecified; J32.9 Chronic sinusitis, unspecified; M17.12 Unilateral primary osteoarthritis, left knee; F41.1 Generalized anxiety disorder; J45.909 Unspecified asthma, uncomplicated; E83.42 Hypomagnesemia; E11.9 Type 2 diabetes mellitus without complications; R60.0 Localized edema; I10 Essential (primary) hypertension; R12 Heartburn; R07.89 Other chest pain; Z96.652 Presence of left artificial knee joint; Z68.29 Body mass index [BMI] 29.0-29.9, adult; Z87.891 Personal history of nicotine dependence; Z87.11 Personal history of peptic ulcer disease; Z79.899 Other long term (current) drug therapy; Z79.82 Long term (current) use of aspirin; Z79.84 Long term (current) use of oral hypoglycemic drugs; Z23 Encounter for immunization; N63 Unspecified lump in breast; N62 Hypertrophy of breast

== ENCOUNTER → 2017-01-31 | Outpatient (CLI) | payer OTHER ==
--- NOTE | 2017-01-31 13:37 | MAMMOGRAPHY REPORT ---
MALE BILATERAL DIGITAL DIAGNOSTIC MAMMOGRAM TOMOSYNTHESIS WITH CAD AND TARGETED BILATERAL ULTRASOUND : 01/31/2017 CLINICAL HISTORY: 71-year-old male with a recent history of skin tag removal from the left nipple wh o presents with itchiness and a sore lump in the subareolar left breast for approximately one month. No skin erythema or nipple discharge. TECHNIQUE: Bilateral breast tomosynthesis in addition to standard 2D mammography was performed. Curr ent study was also evaluated with a Computer Aided Detection (CAD) system. COMPARISON: No prior exams were available for comparison. BREAST COMPOSITION: The breast bregma is nearly entirely fat. FINDINGS: A triangular skin palpable marker overlies the areola of the left breast, denoting the sor e/tender lump and area of itchiness. There is glandular tissue in the subareolar left breast, to a lesser degree in the subareolar right breast. No obvious suspicious mass, focal area of architectur al distortion or suspicious microcalcifications. There are a few benign-appearing dermal calcificat ions projecting over the left breast. Targeted ultrasound was performed in the areas of concern pointed out by the patient, within the sub areolar and periareolar left breast. There is a hypoechoic amount of breast tissue development in t he periareolar and subareolar left breast. Small amount of similar-appearing breast tissue in the r ight retroareolar breast. No suspicious underlying solid or cystic mass is seen. IMPRESSION: ACR BI-RADS CATEGORY 2: BENIGN, TARGETED ULTRASOUND ACR BI-RADS CATEGORY 2: BENIGN 1. There is left greater than right gynecomastia, likely explaining the "sore lump" in the subareola r left breast, pointed out by the patient. Clinical follow-up is recommended as to possible underly ing cause. 2. I do not have a definite explanation for the itchiness in the periareolar left breast but this m ay be related to the patient's dermatologic issues and reported skin tags. Clinical follow-up is al so recommended without regard. 3. No mammographic or targeted evidence of malignancy bilaterally. These results and recommendations were discussed with the patient and his at the time of the ex am. Approximately 10% of breast cancers are not detected with mammography. A negative mammographic repor t should not delay biopsy if a clinically suggestive mass is present. Lisa Capps M.D. ay/:01/31/2017 11:03:37 Finishing Department Supervisor: Scarlett Parks, [facility] letter sent: Normal 11/07 BI-RADS Code: ACR BI-RADS Category 2: Benign Ultrasound BI-RADS: ACR BI-RADS Category 2: Benign
== END | disposition home or self-care (01) ==
LOC: C.MAMM 09:51
PROVIDERS: ATTEND Physician Assistant
DX: N63 Unspecified lump in breast (principal); N62 Hypertrophy of breast

== ENCOUNTER → 2017-02-28 | Outpatient (CLI) | payer OTHER ==
[~2017-02-28] MED LIST changes: -ALL180 PO; -ASCA500 PO; +ASCO500T16 PO; -ASPEC81 PO; +ASPI81TA28 PO; +B-CO1CAP17 PO; -B-COCAP2 PO; +DVN/160 PO; -DVNC160 PO; +FEXO1TAB46 PO; -GFNSR600 PO; +HYDR25TA5 PO; -LEVA1NEB20 INH; +LEVA45AE INH; +MAGN400T6 PO; -MAGNESIUM PO; +OPTIRAY 320 IV PRN; -OXYC-57 PO; +PLMINS INH; +PRED10TA PO; -PRLSR20 PO; +PRT40 PO; +PSEU60TA80 PO; -SPIRONO/HCTZ PO; +SPR25 PO; -WARF2TAB PO
--- NOTE | 2017-02-28 15:07 | DIAGNOSTIC IMAGING REPORT ---
CHEST CT WITH CONTRAST CT DOSE: 601.99 mGycm HISTORY: Abnormal chest CT. Follow-up. TECHNIQUE: Multiaxial CT images of the chest were performed following the intravenous administration of contrast. COMPARISON: Chest CTA 01/31/2017. FINDINGS: Mild diffuse esophageal wall thickening, unchanged. Stable cyst within the right hepatic dome. The spleen and adrenal glands are unremarkable. No pleural or pericardial effusions. The heart is normal in size. Normal caliber thoracic aorta. The central pulmonary arteries are patent. No mediastinal lymphadenopathy. Stable slight decrease in size in the prominent bilateral hilar lymph nodes. Dominant right hilar lymph node continues to measure 1 cm in short axis diameter. Dominant left hilar lymph nodes measure 6 mm in short axis diameter, previously measuring 8 mm. No suspicious lytic or blastic osseous lesions. No pneumothorax. The central airways are patent. Stable 2 mm nodule within the lingula on image 185. Stable 5 mm subpleural nodule within the left lower lobe abutting the major fissure on image 192. Stable 4 mm right upper lobe nodule on image 103. No new focal lung consolidations. Stable mild peripheral interstitial thickening most pronounced at the lung bases, right greater than left. Mild bronchial wall thickening at the lung bases has improved. IMPRESSION: 1. Mild diffuse esophageal wall thickening, unchanged. 2. Stable to slight decrease in size in the prominent bilateral hilar lymph nodes. 3. Stable mild peripheral interstitial thickening most pronounced at the lung bases. This favors mild chronic interstitial change. No focal lung consolidations to suggest pneumonia. 4. Mild bronchial wall thickening has also improved. 5. A total of 3 subcentimeter indeterminate pulmonary nodules with the largest in the left lower lobe measuring 5 mm. This 5 mm nodule is stable compared to the [address] CT and is considered to be benign. However, the 4 mm nodule within the right upper lobe was not present on 2006. Please refer to the chart below for recommended follow-up. Please refer to below summary of Fleischner criteria recommendations for follow-up of incidental CT nodules (Joan Zimmerman, Guidelines for management of small pulmonary nodules detected on CT scans: A statement from the Fleischner Society, Radiology 237: [phone].) SOLID NODULES Solitary nodule size: <6 mm * Low risk patients: no follow-up needed * high risk patients: optional CT at 12 months Solitary nodule size: 6-8 mm * Low risk patients: follow-up at 6-12 months, then consider further follow-up at 18-24 months * high risk patients: initial follow-up CT at 6-12 months and then at 18-24 months if no change Solitary nodule size: >8 mm * either low or high risk patients - consider follow-up CT at 3 months, and/or CT-PET, and/or biopsy Multiple nodules size: <6 mm * Low risk patients: no routine follow-up * high risk patients: optional CT at 12 months Multiple nodules size: 6-8 mm * Low risk patients: follow-up at 3-6 months, then consider further follow-up at 18-24 months * high risk patients: follow-up at 3-6 months, then at 18-24 months if no change Multiple nodules size: >8 mm * Low risk patients: follow-up at 3-6 months, then consider further follow-up at 18-24 months * high risk patients: follow-up at 3-6 months, then at 18-24 months if no change Note: newly detected indeterminate nodule in persons 35 years of age or older. * Low risk patients: minimal or absent history of smoking and/or other known risk factors * high risk patients: history of smoking or of other known risk factors (e.g. first degree relative with lung cancer, or exposure to asbestos, radon, uranium) * if a nodule up to 8 mm is partly solid or is ground glass further follow-up is required after 24 months to exclude possible slow growing adenocarcinoma (DANY) SUBSOLID NODULES Solitary pure ground-glass nodule * nodule size <6 mm - no CT follow-up required * nodule size >=6 mm - follow-up CT at 6-12 months, then every 2 years until 5 years Solitary part-solid nodule * nodule size <6 mm - no CT follow-up required * nodule size >=6 mm - follow-up CT at 3-6 months. If unchanged, and solid component remains <6 mm, then annual follow-up for 5 years Multiple subsolid nodules * nodule size <6 mm - follow-up CT at 3-6 months, consider further follow-up at 2 and 4 years if stable * nodule size >=6 mm - follow-up CT at 3-6 months, subsequent management based on the most suspicious nodule(s) Electronically signed by: Angel Odell M.D. 02/28/2017 3:04 PM Dictated Date/Time: 02/28/2017 2:54 PM
== END | disposition home or self-care (01) ==
LOC: C.CTS 13:43
PROVIDERS: ATTEND Physician Assistant
DX: R91.8 Other nonspecific abnormal finding of lung field (principal)

== ENCOUNTER → 2017-04-10 | Outpatient (CLI) | payer OTHER ==
[~2017-04-10] MED LIST changes: -OPTIRAY 320 IV PRN
--- NOTE | 2017-04-10 09:58 | DIAGNOSTIC IMAGING REPORT ---
Left knee including bilateral standing and sunrise views. 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 On the left there are postsurgical changes of a total left knee arthroplasty. No acute fractures are visualized. There are no dislocations. There are no findings to indicate hardware loosening. There is mild soft tissue swelling. There is a possible small joint effusion. There is a curvilinear is ossific/calcific density superior to the patella. IMPRESSION: Postsurgical change. No acute fractures. No dislocations. Possible small joint effusion. Electronically signed by: Shin Agrawal M.D. 04/10/2017 9:57 AM Dictated Date/Time: 04/10/2017 9:55 AM
== END | disposition home or self-care (01) ==
LOC: C.RDSM 10:12
PROVIDERS: ATTEND Physician Assistant
DX: Z96.659 Presence of unspecified artificial knee joint (principal)

== ENCOUNTER → 2017-04-11 | Outpatient (CLI) | payer OTHER ==
[2017-04-11 14:11] LABS: CALCIUM 9.5 mg/dl (8.5-10.1)
[2017-04-11 14:16] LABS: BLOOD UREA NITROGEN 17 mg/dl (7-18); BUN/CREATININE RATIO 15.5 (10-20); CARBON DIOXIDE 27 mmol/L (21-32); CHLORIDE 100 mmol/L (98-107); GLUCOSE 148 mg/dl (70-99); POTASSIUM 3.9 mmol/L (3.5-5.1); SODIUM 136 mmol/L (136-145)
[2017-04-11 14:48] LABS: LYME DISEASE AB IGG NEG (NEG)
[2017-04-11 14:52] LABS: LYME DISEASE AB IGM NEG (NEG)
== END | disposition home or self-care (01) ==
LOC: C.LABBC 11:04
PROVIDERS: ATTEND Physician Assistant Medical
DX: J44.9 Chronic obstructive pulmonary disease, unspecified (principal); W57.XXXA Bitten or stung by nonvenomous insect and other nonvenomous arthropods, initial encounter

== ENCOUNTER → 2017-10-06 | Outpatient (CLI) | payer OTHER ==
[~2017-10-06] MED LIST changes: -PRED10TA PO
== END | disposition home or self-care (01) ==
LOC: C.RDSM 09:15
PROVIDERS: ATTEND Physical Medicine & Rehabilitation Sports Medicine
DX: M17.0 Bilateral primary osteoarthritis of knee (principal); Z96.652 Presence of left artificial knee joint

== ENCOUNTER → 2017-10-16 | Outpatient (CLI) | payer OTHER ==
[2017-10-16 12:20] LABS: BASO % 0.7 %; BASO ABS # 0.05 K/uL (0-0.2); COMPLETE YES; HEMATOCRIT 37.3 % (42-52); IG% 0.3 %; LYMPH % 25.7 %; LYMPH ABS # 1.76 K/uL (1.2-3.4); MEAN CELL VOLUME 90.1 fL (80-100); MEAN CORPUSCULAR HEMOGLOBIN 32.1 pg (25-34); MEAN CORPUSCULAR HGB CONC 35.7 g/dl (32-36); MEAN PLATELET VOLUME 10.6 fL (7.4-10.4); MONO % 12.1 %; NEUT % 54.2 %; PLATELET COUNT 199 K/uL (130-400); RED BLOOD COUNT 4.14 M/uL (4.7-6.1); WHITE BLOOD COUNT 6.85 K/uL (4.8-10.8)
[2017-10-16 12:50] LABS: ESTIMATED AVERAGE GLUCOSE 128 mg/dl; HA1C FLAG Normal (Normal)
[2017-10-16 13:15] LABS: ALT/SGPT 31 U/L (12-78); BLOOD UREA NITROGEN 23 mg/dl (7-18); BUN/CREATININE RATIO 22.3 (10-20); CALCIUM 9.5 mg/dl (8.5-10.1); CARBON DIOXIDE 28 mmol/L (21-32); CHLORIDE 97 mmol/L (98-107); CHOLESTEROL 143 mg/dl (0-200); CREATININE 1.01 mg/dl (0.60-1.40); GLUCOSE 113 mg/dl (70-99); SODIUM 133 mmol/L (136-145)
[2017-10-16 13:20] LABS: ALB/GLOB RATIO 1.1 (0.9-2); ALKALINE PHOSPHATASE 119 U/L (45-117); AST/SGOT 22 U/L (15-37); CHOLESTEROL/HDL RATIO 3.7; HDL CHOLESTEROL 39 mg/dl; LDL CHOLESTEROL CALCULATED 79 mg/dl; TRIGLYCERIDES 127 mg/dl (0-150); VERY LOW DENSITY LIPOPROT CALC 25 mg/dl
== END | disposition home or self-care (01) ==
LOC: C.LAB1850 09:33
PROVIDERS: ATTEND Physician Assistant Medical
DX: Z00.00 Encounter for general adult medical examination without abnormal findings (principal); R73.9 Hyperglycemia, unspecified; R35.1 Nocturia

== ENCOUNTER 2017-11-09 15:56 | Inpatient (IN) | payer OTHER ==
[~2017-11-09] VITALS: Ht 177.8 cm; Wt 98.3 kg
[2017-11-09] VITALS (8 sets, daily range): BP systolic 121–139; BP diastolic 72–80; PULSE 55–87; TEMP 36.4–38.2; O2SAT 91–95; Ht 177.8 cm; Wt 98.3 kg
[~2017-11-09 15:56] MED LIST changes: -ACETAMINOPHEN 325 MG TAB ONE; +AMLO-114 PO; -AMLO10TA3 PO; +B-CO1CAP17 PO; -B-COCAP2 PO; -DVN80 PO; -PANT1TAB4 PO; -PRED20TA PO; +PRT40 PO; -SPIR25TA6 PO; +SPR25 PO
[2017-11-09] MEDS ORDERED: SODIUM CHLORIDE 0.9% 1000ML 1,000 ML IV SCH (16:56)
[2017-11-09] MEDS ORDERED: ACETAMINOPHEN 325 MG TAB PO PRN (17:00)
[2017-11-09] MEDS ORDERED: GLUCAGON FOR INJ 1 MG VIAL SQ PRN (17:00)
[2017-11-09] MEDS ORDERED: ZOLPIDEM TARTRATE 5 MG TAB PO PRN ×2 (17:00)
[2017-11-09] MEDS ORDERED: GLUCOSE 10 TABS/TUBE PO PRN (17:00)
[2017-11-09] MEDS ORDERED: VANCOMYCIN INJ 0 MG in SODIUM CHLORIDE 0.9% 500ML 500 ML IV SCH (17:00)
[2017-11-09] MEDS ORDERED: ONDANSETRON INJ 2 MG/ML 2 ML VIAL IV PRN (17:00)
[2017-11-09] MEDS ORDERED: MAGNESIUM HYDROXIDE SUSP 30 ML UDC PO PRN (17:00)
[2017-11-09] MEDS ORDERED: GLUCOSE 40% GEL 15 GM TUBE PO PRN (17:00)
[2017-11-09] MEDS ORDERED: ALUMINUM/MAGNESIUM/SIMETH (MAALOX MAX) 30 ML UDC PO PRN (17:00)
[2017-11-09] MEDS ORDERED: DEXTROSE 50% 50 ML SYR IV PRN (17:00)
[2017-11-09] MEDS ORDERED: GUAIFENESIN SUGAR FREE 200 MG/10 ML UDC PO PRN (17:15)
[2017-11-09 17:51] LABS: BASO % 0.1 %; BASO ABS # 0.01 K/uL (0-0.2); EOS % 0.5 %; EOS ABS # 0.04 K/uL (0-0.5); HEMATOCRIT 38.5 % (42-52); HEMOGLOBIN 14.1 g/dL (14.0-18.0); IG# 0.04 K/uL (0.00-0.02); LYMPH % 10.7 %; LYMPH ABS # 0.95 K/uL (1.2-3.4); MEAN CORPUSCULAR HEMOGLOBIN 32.9 pg (25-34); MEAN PLATELET VOLUME 9.9 fL (7.4-10.4); MONO ABS # 1.86 K/uL (0.11-0.59); NEUT % 67.2 %; NEUT ABS # 5.95 K/uL (1.4-6.5); PLATELET COUNT 166 K/uL (130-400); RED CELL DISTRIBUTION WIDTH CV 12.3 % (11.5-14.5); RED CELL DISTRIBUTION WIDTH SD 40.3 fL (36.4-46.3); WHITE BLOOD COUNT 8.85 K/uL (4.8-10.8)
--- NOTE | 2017-11-09 17:58 | History and Physical ---
History & Physical Date & Time of Service: Nov 09, 2017 at 17:49 Chief Complaint: Toxic Asthma Exacerbation Primary Care Physician: Nicole Rivas P.A. History of Present Illness Source: patient, partner 72 year old man with past medical history of COPD/asthma, allergic rhinitis, GERD, generalized anxiety disorder, hypertension, hyperglycemia on metformin, obesity, obstructive sleep apnea, chronic sinusitis and peptic ulcer disease was sent from his pulmonary office for direct admission. Patient was in his regular state of health until about 1 month ago when he developed upper respiratory tract infection. As per patient he took 2 rounds of levofloxacin and prednisone that didn't help to alleviate his symptoms. He complained of cough and productive yellowish and greenish mucus. He said he got a chest x-ray that did not show obvious pneumonia recently. Today at his pulmonary care office and was found to have hypoxia, fever and decreased air entry in both bilateral lung hobbs. He was sent for evaluation and management. During the past month he used a lot of dcor-wpe-fecelre medications including antihistaminic for his congestion. Looks like he developed some urinary retention secondary to that. On arrival his oxygen saturation was between 88 and 89 on room air improved to 93 on 2 L. His temperature was 38.5. He appeared flushed and in mild distress. Denies any chest pain focal weakness or diarrhea. Does not smoke Drinks alcohol socially. Past Medical/Surgical History COPD/asthma allergic rhinitis GERD generalized anxiety disorder hypertension hyperglycemia on metformin obesity obstructive sleep apnea chronic sinusitis peptic ulcer disease Social History Smoking Status: Never Smoker Drug Use: none Marital Status: Housing status: lives with family Occupational Status: employed Immunizations History of Influenza Vaccine: Unknown History of Tetanus Vaccine?: Unknown History of Pneumococcal: No History of Hepatitis B Vaccine: Unknown Multi-Drug Resistant Organisms History of MDRO: No Allergies Coded Allergies: Codeine (Verified Adverse Reaction, Mild, NAUSEA, 01/31/17) Erythromycin (Verified Adverse Reaction, Unknown, GI UPSET, 01/31/17) Meperidine (Verified Adverse Reaction, Unknown, gi upset, 01/31/17) Home Medications Scheduled Alprazolam (Xanax), 0.5 MG PO HS Amlodipine (Norvasc), 5 MG PO QAM Ascorbic Acid (Ascorbic Acid), 500 MG PO DAILY Aspirin (Aspirin Ec), 81 MG PO DAILY Budesonide (Budesonide), 0.25 MG INH BID Calcium Citrate-Vitamin D (Citracal Maximum), 1 TAB PO BID Carvedilol (Coreg), 25 MG PO BID Cyanocobalamin (Vitamin B12 100 Mcg), 100 MCG PO QAM Cyclosporine (Ophth) (Restasis), 1 DROP OP BID Doxazosin Mesylate (Cardura), 2 MG PO BID Fexofenadine Hcl (Dagmar), 180 MG PO DAILY Hydrochlorothiazide (Hydrochlorothiazide), 1 TAB PO DAILY Levalbuterol Tartrate (Levalbuterol Tartrate Hfa), Unknown Dose INH BID Magnesium Oxide (Mag-Ox), 400 MG PO DAILY Metformin Hcl (Glucophage), 500 MG PO QAM Multivitamin (Multivitamin), 1 TAB PO QAM Nystatin (Bio-Statin), 1 TAB PO BID Pantoprazole (Pantoprazole Sodium), 40 MG PO BID Pseudoephedrine-Guaifenesin (Mucinex D), 600 MG PO BID Spironolactone (Spironolactone), 1 TAB PO DAILY Valsartan (Diovan), 1 TAB PO BID Vitamin B Cmplx/Vitc/Folic Ac (Nephrocaps), 1 CAP PO DAILY Review of Systems Constitutional: + fever, + chills, + sweats, + weakness, + fatigue Eyes: No worsening of vision, No eye pain, No redness, No discharge, No diplopia, No problem reported ENT: No hearing loss, No unusual epistaxis, No nasal symptoms, No sore throat, No tinnitus, No dental problems, No trouble swallowing, No problem reported Respiratory: + cough, + sputum, + shortness of breath, + dyspnea on exertion, + dyspnea at rest Cardiovascular: No chest pain, No orthopnea, No PND, No edema, No claudication , No palpitations, No problem reported Abdomen: No pain, No nausea, No vomiting, No diarrhea, No constipation, No GI bleeding, No problem reported Musculoskeletal: No joint pain, No muscle pain, No swelling, No calf pain, No problem reported Genitourinary - Male: + urinary hesitancy, No hematuria, No dysuria, No urinary frequency, No urinary urgency, No urinary retention, No urinary incontinence, No penile discharge, No lesions, No impotence, No problem reported Neurologic: No memory loss, No paralysis, No weakness, No numbness/tingling, No vertigo, No balance problems, No problem reported Psychiatric: No depression symptoms, No anhedonism, No anxiety, No insomnia, No substance abuse, No problem reported Endocrine: No fatigue, No excessive thirst, No excessive urination, No problem reported Hematologic / Lymphatic: No abnormal bleeding/bruising, No clotting problems, No swollen lymph nodes, No night sweats, No problem reported Integumentary: No rash, No itch, No new/changing skin lesions, No color change , No bleeding, No problem reported Allergic / Immunologic: No environmental allergies, No seasonal allergies, No pet sensitivities, No food allergies, No hives, No frequent infections, No poor healing, No prolonged convalescence, No problem reported Physical Exam Vital Signs Date Time Temp Pulse Resp B/P (MAP) Pulse Ox O2 Delivery O2 Flow Rate FiO2 11/09/17 17:03 38.2 87 19 127/73 (91) 92 Nasal Cannula 2.0 11/09/17 16:41 37.9 82 19 130/76 92 Nasal Cannula 2.0 General Appearance: + mild distress, + obese Head: normocephalic, atraumatic Eyes: normal inspection, PERRL, EOMI ENT: normal ENT inspection, hearing grossly normal, TMs normal, pharynx normal Neck: supple Respiratory/Chest: chest non-tender, + respiratory distress, + decreased breath sounds, + crackles, + rales, + wheezing Cardiovascular: regular rate, rhythm, no edema, no gallop, no JVD, no murmur, normal peripheral pulses Abdomen/GI: normal bowel sounds, non tender, soft, no organomegaly, no pulsatile mass Back: normal inspection Extremities/Musculoskelatal: normal inspection, no calf tenderness, normal capillary refill, no pedal edema 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, no motor/sensory deficits, alert, normal mood/affect, normal reflexes, oriented x 3 Skin: normal color, warm/dry, no rash Diagnostics Laboratory Results Results Past 24 Hours Test 11/09/17 16:43 11/09/17 17:06 11/09/17 17:08 11/09/17 17:23 Range/Units Bedside Glucose 120 70-99 mg/dl Test 11/09/17 17:34 Range/Units Microbiology Results 11/09/17 Blood Culture, Received Pending 11/09/17 Blood Culture, Received Pending 11/09/17 MRSA DNA Surveillance Screen, Ordered Pending 11/09/17 Gram Stain, Ordered Pending 11/09/17 Sputum Culture, Ordered Pending Impression Assessment and Plan 72 year old man with past medical history of COPD/asthma, allergic rhinitis, GERD, generalized anxiety disorder, hypertension, hyperglycemia on metformin, obesity, obstructive sleep apnea, chronic sinusitis and peptic ulcer disease was sent from his pulmonary office for direct admission. Acute hypoxic respiratory failure with 1 month history of shortness of breath and productive cough Assessment Acute hypoxic respiratory failure secondary to below COPD exacerbation secondary to below Severe bronchitis versus early pneumonia that caused bronchospasm and COPD exacerbation New onset urinary retention secondary to [id number] antihistaminic Possible UTI present on admission allergic rhinitis GERD generalized anxiety disorder hypertension hyperglycemia on metformin obesity obstructive sleep apnea chronic sinusitis peptic ulcer disease Plan Admit patient to telemetry Oxygen supplement as per protocol Blood culture/sputum culture Influenza virus screen and PCR Urine legionella antigen Group a strep screen Initiate broad-spectrum antibiotics covering typical and atypical microorganisms , vancomycin/levofloxacin/cefepime Start patient on lactobacillus to prevent C. difficile Continue home medications IV fluid hydration as needed Monitor labs in a.m. Bronchodilators Monitor oxygen saturation Place a Bridges catheter and obtain urine analysis and urine culture and sensitivity DVT prophylaxis/heparin subcutaneous Advanced Directives Existing Living Will: No Existing Power of Parking Lot Manager: No VTE Prophylaxis VTE Risk Assessment Done? Y/N: Yes Risk Level: Moderate
[2017-11-09] MEDS ORDERED: LEVOFLOXACIN / D5W 750 MG in PREMIXED IN D5W 150 ML IV SCH (18:00)
[2017-11-09] MEDS ORDERED: CEFEPIME IV 2,000 MG in SYRINGE 7.5 ML IV SCH (18:00)
[2017-11-09 18:04] LABS: MEAN CORPUSCULAR HGB CONC 36.6 g/dl (32-36)
[2017-11-09 18:13] LABS: ALBUMIN 3.8 gm/dl (3.4-5.0); CALCIUM 8.9 mg/dl (8.5-10.1); CREATININE 1.01 mg/dl (0.60-1.40); POTASSIUM 3.4 mmol/L (3.5-5.1)
[2017-11-09 18:14] LABS: TOTAL PROTEIN 7.3 gm/dl (6.4-8.2)
[2017-11-09] MEDS ORDERED: VANCOMYCIN CONSULT ACTIVE PRN (18:15)
[2017-11-09 18:21] LABS: INR 1.1 (0.9-1.1)
[2017-11-09 18:32] LABS: INFLUENZA B ANTIGEN Neg for Influ B (NEG)
--- NOTE | 2017-11-09 18:58 | DIAGNOSTIC IMAGING REPORT ---
CHEST 2 VIEWS ROUTINE CLINICAL HISTORY: hypoxia COMPARISON STUDY: 11/09/2017 FINDINGS: The cardiac and mediastinal contours are normal. There is no evidence of focal pulmonary consolidation. There is no evidence of failure. There are stable trace pleural effusions. There is minor basilar atelectasis. IMPRESSION: Stable trace pleural effusions. No evidence of acute parenchymal consolidation. Electronically signed by: Shin Agrawal M.D. 11/09/2017 6:57 PM Dictated Date/Time: 11/09/2017 6:56 PM
[2017-11-09] MEDS: LEVALBUTEROL 0.63MG/3 ML NEB INH SCH (19:06)
[2017-11-09] MEDS: IPRATROPIUM BROMIDE NEB SOLN 0.02% 2.5 ML VIAL INH SCH (19:06)
[2017-11-09] MEDS: BUDESONIDE 0.5 MG/2 ML VIAL (PULMICORT) INH SCH (19:07)
[2017-11-09] MEDS: LACTOBACILLUS ACIDOPHILUS (FLORANEX) TAB PO SCH (19:25)
[2017-11-09] MEDS: METHYLPREDNISOLONE IV 60 MG in SYRINGE 0 ML IV SCH (19:26)
[2017-11-09] MEDS: CARVEDILOL 25 MG TAB PO SCH (20:06)
[2017-11-09] MEDS: DOXAZosin MESYLATE TAB 2 MG TAB PO SCH (20:06)
[2017-11-09] MEDS: PANTOprazole SOD 40 MG TAB PO SCH (20:06)
[2017-11-09] MEDS ORDERED: NURSING VERBAL MED ORDER ONE ×2 (21:00→22:15)
[2017-11-09] MEDS ORDERED: LEVALBUTEROL/IPRATROPIUM NEB INH SCH (21:00)
[2017-11-09] MEDS: ALPRAZOLAM 0.5 MG TAB PO SCH (22:09)
[2017-11-09] MEDS: OSELTAMIVIR PHOSPHATE 75 MG CAP PO SCH (22:10)
[2017-11-09] MEDS: GUAIFENESIN 600 MG TABCR PO SCH (22:10)
[2017-11-09] MEDS: POLYETHYLENE (MIRALAX) 17 GM PACK PO PRN (22:11)
[2017-11-09] MEDS: INSULIN ASPART 100 UNITS/ML 3 ML PEN SC SCH (22:11)
[2017-11-09] MEDS: HEPARIN SOD 5000 UNIT/0.5 ML CARP SQ SCH (22:13)
[2017-11-09] MEDS: DOCUSATE SODIUM 100 MG CAP PO SCH (23:31)
[2017-11-10] VITALS (11 sets, daily range): BP systolic 117–137; BP diastolic 67–76; PULSE 49–85; TEMP 36.4–36.7; O2SAT 90–96
[2017-11-10] MEDS: IPRATROPIUM BROMIDE NEB SOLN 0.02% 2.5 ML VIAL INH SCH ×4 (01:49→19:58)
[2017-11-10] MEDS: LEVALBUTEROL 0.63MG/3 ML NEB INH SCH ×4 (01:50→19:59)
[2017-11-10] MEDS: METHYLPREDNISOLONE IV 60 MG in SYRINGE 0 ML IV SCH ×3 (01:55→18:09)
[2017-11-10] MEDS ORDERED: NURSING DECISION MEDICATION ORDER SCH (05:15)
[2017-11-10] MEDS: HEPARIN SOD 5000 UNIT/0.5 ML CARP SQ SCH ×3 (05:22→22:09)
[2017-11-10 06:58] LABS: HEMOGLOBIN A1C 6.3 % (4.5-5.6)
[2017-11-10] MEDS: BUDESONIDE 0.5 MG/2 ML VIAL (PULMICORT) INH SCH ×2 (07:20→19:58)
[2017-11-10] MEDS ORDERED: NURSING VERBAL MED ORDER ONE (07:45)
[2017-11-10] MEDS ORDERED: COUGH DROP (SUGAR FREE) LOZ 24 LOZ/1 BOX ONE (07:55)
[2017-11-10] MEDS ORDERED: GUAIFENESIN SUGAR FREE 200 MG/10 ML UDC PO PRN (08:00)
[2017-11-10] MEDS ORDERED: AZITHROMYCIN 500 MG / D5W 250 ML IV SCH ×2 (08:00)
[2017-11-10] MEDS: POLYETHYLENE (MIRALAX) 17 GM PACK PO PRN (08:01)
--- NOTE | 2017-11-10 08:01 | Clinical Documentation Query ---
CLINICAL DOCUMENTATION QUERY In your clinical opinion is this patient being managed for: ( ) Hypo-osmolality and hyponatremia ( ) Not Agree ( ) Other explanation of clinical findings (Please Explain) ( ) Unable to determine (Please Define) (x ) Need to Discuss The medical record reflects the following clinical findings, treatment, and risk factors. Clinical Indicators: Na 126 Treatment: IV hydration Risk Factors: Age, pneumonia, influenza Please clarify and document your clinical opinion in the progress notes and discharge summary. Terms such as "probable", "suspected", "likely", "questionable", "possible", or "still to be ruled out" are acceptable. IF IN AGREEMENT, YOU MUST DOCUMENT ABOVE DIAGNOSTIC STATEMENT IN DAILY PROGRESS NOTES AND DISCHARGE SUMMARY. This document is not part of the patient's record. Thank You, Lisa Mercer RN [phone]
[2017-11-10] MEDS: MAGNESIUM OXIDE 400 MG TAB PO SCH (08:06)
[2017-11-10] MEDS: OSELTAMIVIR PHOSPHATE 75 MG CAP PO SCH ×2 (08:06→22:02)
[2017-11-10] MEDS: GUAIFENESIN 600 MG TABCR PO SCH ×2 (08:06→22:02)
[2017-11-10] MEDS: AMLODIPINE BESYLATE 5 MG TAB PO SCH (08:07)
[2017-11-10] MEDS: ASPIRIN 81 MG ECTAB PO SCH (08:07)
[2017-11-10] MEDS: PANTOprazole SOD 40 MG TAB PO SCH ×2 (08:08→22:02)
[2017-11-10] MEDS: DOXAZosin MESYLATE TAB 2 MG TAB PO SCH ×2 (08:08→22:01)
[2017-11-10] MEDS: VALSARTAN 80 MG TAB PO SCH (08:09)
[2017-11-10] MEDS: LACTOBACILLUS ACIDOPHILUS (FLORANEX) TAB PO SCH ×3 (08:11→16:54)
[2017-11-10] MEDS: ASCORBIC ACID 500 MG TAB PO SCH (08:12)
[2017-11-10] MEDS: CARVEDILOL 25 MG TAB PO SCH ×2 (08:13→22:01)
[2017-11-10] MEDS: INSULIN ASPART 100 UNITS/ML 3 ML PEN SC SCH ×4 (08:29→22:08)
[2017-11-10 10:16] LABS: HEMATOCRIT 35.6 % (42-52); MEAN CELL VOLUME 88.8 fL (80-100); MEAN CORPUSCULAR HEMOGLOBIN 32.4 pg (25-34); MEAN CORPUSCULAR HGB CONC 36.5 g/dl (32-36); MEAN PLATELET VOLUME 10.6 fL (7.4-10.4); PLATELET COUNT 150 K/uL (130-400); RED CELL DISTRIBUTION WIDTH CV 12.3 % (11.5-14.5); RED CELL DISTRIBUTION WIDTH SD 39.6 fL (36.4-46.3); WHITE BLOOD COUNT 5.43 K/uL (4.8-10.8)
[2017-11-10 10:20] LABS: CALCIUM 8.2 mg/dl (8.5-10.1); CREATININE 0.92 mg/dl (0.60-1.40); POTASSIUM 3.5 mmol/L (3.5-5.1)
--- NOTE | 2017-11-10 14:59 | Pulmonary Consultation ---
History General Date of Service: Nov 10, 2017. Stated Complaint: Toxic Asthma Exacerbation HPI The patient is a 72 year old male who presents to [facility] with complaints of Toxic Asthma Exacerbation. The patient's primary care provider is Nicole Rivas P.A.. Mr. Connor is a 72-year-old male with past medical history of mild COPD, obstructive sleep apnea, hypertension and hyperlipidemia, who presents with one- month history of worsening shortness of breath. He states that over the last few weeks he's had increased cough with productive sputum. He describes as yellowish in color. He denies any hemoptysis. He also endorses generalized malaise, fatigue and myalgias. He notes that over the last 2-3 days he's had increased dyspnea on exertion, chest tightness and wheezing. He also notes that she's had rhinorrhea, nasal congestion as well as sore throat. He does admit to having several sick contacts at home with similar symptoms. He states this he has had subjective fevers associated with night sweats. He has been taking [id number] cold and cough medications and has noticed that had increased urinary retention. He admits to decreased oral intake associated with constipation during the same period of time. He does have history of allergic rhinitis and chronic sinusitis for which he takes inhaled nasal corticosteroid. 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 Of note, he has had history of exertional chest tightness is being followed up by cardiology with dobutamine stress echo. However on questioning today, he didn't not endorse any exertional chest tightness or dyspnea. He follows up in pulmonary clinic with BALBIR Haskins and Dr. Aquino's office for COPD as well as obstructive sleep apnea. He was noted to have a pulse oximetry of 89% on room air. He typically ranges between 94-96%. He also was noted to be febrile to oxygen 102.9F and subsequently transferred to the hospital as a direct admission. Upon arrival to the ER his temperature was 37.9C, pulse 87, respiratory rate 19 , blood pressure 127/73, pulse oximetry 92% on 2 L nasal cannula. His initial laboratory data showed a white blood count of 8.8, hemoglobin of 14, platelet count 166. Sodium 126, potassium 3.4, chloride 89, bicarbonate 28, BUN 16 and creatinine 1.1. LFTs were within normal limits albumin 3.8 and pro-calcitonin 0.06. ABG 7.47/36/70/25/93.4% on 2 L nasal cannula. Serology was positive for influenza A, negative for influenza B. Legionella culture and urine antigen as well as mycoplasma IgM are still pending. Blood cultures and sputum cultures are still pending. Chest x-ray showed stable trace pleural effusions with no evidence of acute parenchymal consolidation. He received Levaquin 750 mg daily IV, cefepime 2 g every 8 hours IV and azithromycin 500 mg IV. He is also on Solu-Medrol 60 mg every 8 hours IV and ipratropium/albuterol nebulizers every 6 hours. He is now on Tamiflu for influenza A. At time of my evaluation, patient sitting up in bed in no acute respiratory distress. He states that he is feeling much better at home and swelling yesterday. He denies any further myalgias or episodes of chest tightness, wheezing and states that cough has improved. He is speaking in full sentences without use of any accessory muscles of respiration. He is tolerating diet amd was able to pass bowel movement this morning without difficulty. Historian: patient Onset: last week Severity: moderate Complaint Status: improved, persistent Review of Systems Constitutional: reports: as stated in HPI Eyes: reports: as stated in HPI ENT: reports: as stated in HPI Cardiovascular: reports: as stated in HPI Respiratory: reports: as stated in HPI Gastrointestinal: reports: as stated in HPI Genitourinary - Male: reports: as stated in HPI Musculoskeletal: reports: as stated in HPI Integumentary: reports: as stated in HPI Neurologic: reports: as stated in HPI Psychiatric: reports: as stated in HPI Hematologic / Lymphatic: as stated in HPI Allergic / Immunologic: as stated in HPI All Other Symptoms All Other Systems: Reviewed and Negative Past Medical History Past Medical History: Active Problems 1. Abnormal CT scan of lung (R91.8) 2. Acid reflux disease (K21.9) 3. Allergic rhinitis (J30.9) 4. Asthma (J45.909) 5. Asthma exacerbation (J45.901) 6. Chronic obstructive pulmonary disease (J44.9) 7. Degenerative joint disease (M19.90) 8. Exertional chest pain (R07.9) 9. Generalized anxiety disorder (F41.1) 10. Hyperglycemia (R73.9) 11. Hypertension (I10) 12. Migraine headache (G43.909) 13. Nocturia (R35.1) 14. Obesity (E66.9) 15. Obstructive sleep apnea (G47.33) 16. Peptic ulcer (K27.9) 17. Sleep apnea (G47.30) 18. Tick bite (W57.XXXA) Past Medical History 1. History of Cellulitis (L03.90) 2. History of Cough (R05) 3. History of Eustachian tube dysfunction (H69.80) 4. History of abdominal pain (Z87.898) 5. History of acute bronchitis (Z87.09) 6. History of acute otitis media (Z86.69) 7. History of acute sinusitis (Z87.09) 8. History of diverticulitis of colon (Z87.19) 9. History of fever (Z87.898) 10. History of gastroenteritis (Z87.19) 11. History of herpes zoster (Z86.19) 12. History of vertigo (Z87.898) 13. History of Left breast lump (N63.20) 14. History of Lower extremity edema (R60.0) 15. History of Open wound of finger (S61.209A) 16. History of Rash (R21) 17. History of Unspecified rotator cuff tear or rupture of left shoulder, not specified as traumatic (M75.102) Past Surgical History: Surgical History 1. History of Rotator Cuff Repair 2. History of Sinus Surgery 3. History of Uvuloplasty Family History Family History 1. Family history of cardiac disorder (Z82.49) 2. Family history of cardiac disorder (Z82.49) 3. 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 Hx Tobacco Use In Past Year?: No Smoking Status: Never Smoker Marital status: Housing status: lives with family Occupational Status: employed Immunizations History of Influenza Vaccine: Unknown History of Tetanus Vaccine?: Unknown History of Pneumococcal: No History of Hepatitis B Vaccine: Unknown History of MDRO History of MDRO: No Allergies Coded Allergies: Codeine (Verified Adverse Reaction, Mild, NAUSEA, 01/31/17) Erythromycin (Verified Adverse Reaction, Unknown, GI UPSET, 01/31/17) Meperidine (Verified Adverse Reaction, Unknown, gi upset, 01/31/17) Current Medications Reported Home Medications Medications Dose Route/Sig Max Daily Dose Days Date Category Budesonide 0.5 Mg/2 Ml Nebu 0.25 Mg INH BID 14 02/01/17 Rx Pantoprazole Sodium (Pantoprazole) 40 Mg Tab 40 Mg PO BID 30 02/01/17 Rx Levalbuterol Tartrate Hfa (Levalbuterol Tartrate) 45 Mcg/Act Aer Unknown Dose INH BID 01/31/17 Reported Hydrochlorothiazide 25 Mg Tab 1 Tab PO DAILY 01/31/17 Reported Spironolactone 25 Mg Tab 1 Tab PO DAILY 01/31/17 Reported Mag-Ox (Magnesium Oxide) 400 Mg Tab 400 Mg PO DAILY 01/31/17 Reported Nephrocaps (Vitamin B Complex/Vit C/Folic Acid) Cap 1 Cap PO DAILY 30 01/31/17 Reported Diovan (Valsartan) 160 Mg Tab 1 Tab PO BID 30 01/31/17 Reported Mucinex D (Pseudoephedrine-Guaifenesin) 1 Tab Tab 600 Mg PO BID 10 01/31/17 Reported Dagmar (Fexofenadine Hcl) 180 Mg Tab 180 Mg PO DAILY 01/31/17 Reported Aspirin Ec (Aspirin) 81 Mg Tab 81 Mg PO DAILY 01/31/17 Reported Ascorbic Acid 500 Mg Tab 500 Mg PO DAILY 01/31/17 Reported Restasis (Cyclosporine (Ophth)) 0.05 % Emu 1 Drop OP BID 08/30/16 Reported Glucophage (Metformin Hcl) 500 Mg Tab 500 Mg PO QAM 08/30/16 Reported Citracal Maximum (Calcium Citrate-Vitamin D) 1 Tab Tab 1 Tab PO BID 08/30/16 Reported Vitamin B12 100 Mcg (Cyanocobalamin) 100 Mcg Tab 100 Mcg PO QAM 08/30/16 Reported Bio-Statin (Nystatin) 500,000 Unit Cap 1 Tab PO BID 06/12/15 Reported Norvasc (Amlodipine Besylate) 10 Mg Tab 5 Mg PO QAM 06/12/15 Reported Coreg (Carvedilol) 25 Mg Tab 25 Mg PO BID 06/12/15 Reported Cardura (Doxazosin Mesylate) 2 Mg Tab 2 Mg PO BID 06/12/15 Reported Multivitamin (Multivitamins) Tab 1 Tab PO QAM 09/23/11 Reported Xanax (Alprazolam) 0.5 Mg Tab 0.5 Mg PO HS 09/23/11 Reported Physical Physical Exam Vital Signs: Date Time Temp Pulse Resp B/P (MAP) Pulse Ox O2 Delivery O2 Flow Rate FiO2 11/10/17 14:07 65 16 96 Room Air 11/10/17 12:15 36.4 60 16 124/72 (89) 94 11/10/17 12:00 Room Air 11/10/17 08:13 62 11/10/17 08:00 Room Air 11/10/17 07:57 36.4 58 16 123/70 (87) 92 11/10/17 07:23 58 16 93 Room Air 11/10/17 04:00 Room Air 11/10/17 03:26 36.4 49 18 122/67 (85) 93 Room Air 11/10/17 01:50 72 16 94 Room Air 11/10/17 00:00 Room Air 11/09/17 23:35 36.4 55 16 135/80 (98) 91 Room Air 11/09/17 22:51 36.7 93 Room Air 11/09/17 21:51 62 121/73 (89) 93 Room Air 11/09/17 21:06 64 139/72 (94) 91 Room Air 11/09/17 19:39 37.5 73 19 134/74 (94) 95 Nasal Cannula 2.0 11/09/17 19:12 74 16 95 Nasal Cannula 3.0 11/09/17 17:03 38.2 87 19 127/73 (91) 92 Nasal Cannula 2.0 11/09/17 16:41 37.9 82 19 130/76 92 Nasal Cannula 2.0 General Appearance: WD/WN, NO APPARENT DISTRESS, obese Eyes: NO DISCHARGE, EOMI, SCLERAE NORMAL ENT: NORMAL NASAL EXAM, NORMAL MOUTH EXAM, NORMAL THROAT EXAM, dentures Neck: NORMAL RANGE OF MOTION, NO TENDERNESS, TRACHEA MIDLINE, NO STRIDOR, SUPPLE Respiratory: BREATH SOUNDS NORMAL, CLEAR TO AUSCULTATION, CLEAR TO PERCUSSION Cardiovasular: REGULAR RATE/RHYTHM, NORMAL S1S2, NO M/G/R, NO MURMUR Abdomen: NON TENDER, NORMAL BOWEL SOUNDS, NO REBOUND, other (obese abdomen) Back: NORMAL INSPECTION, NO MIDLINE TENDERNESS, NO CVA TENDERNESS Upper Extremities: NO EDEMA, NO DEFORMITY, NORMAL ROM, other (no cyanosis or clubbing) Lower Extremities: NO EDEMA, NO DEFORMITY, NORMAL ROM Pulses: dorsalis pedis (R) (2+), dorsalis pedis (L) (2+) Neuro: ALERT, ORIENTED x 3, NORMAL MOTOR EXAM, NORMAL SENSATION, NORMAL CEREBELLAR EXAM, NORMAL SPEECH, NORMAL GAIT, NORMAL MEMORY Psychiatric: NORMAL AFFECT, NO SUICIDAL IDEATION, CONTRACTS FOR SAFETY Diagnostics Labs Results Past 24 Hours Test 11/09/17 16:43 11/09/17 17:23 11/09/17 17:30 11/09/17 17:34 Range/Units Bedside Glucose 120 70-99 mg/dl White Blood Count 8.85 4.8-10.8 K/uL Red Blood Count 4.28 4.7-6.1 M/uL Hemoglobin 14.1 14.0-18.0 g/dL Hematocrit 38.5 42-52 % Mean Corpuscular Volume 90.0 80-100 fL Mean Corpuscular Hemoglobin 32.9 25-34 pg Mean Corpuscular Hemoglobin Concent 36.6 32-36 g/dl Platelet Count 166 130-400 K/uL Mean Platelet Volume 9.9 7.4-10.4 fL Neutrophils (%) (Auto) 67.2 % Lymphocytes (%) (Auto) 10.7 % Monocytes (%) (Auto) 21.0 % Eosinophils (%) (Auto) 0.5 % Basophils (%) (Auto) 0.1 % Neutrophils # (Auto) 5.95 1.4-6.5 K/uL Lymphocytes # (Auto) 0.95 1.2-3.4 K/uL Monocytes # (Auto) 1.86 0.11-0.59 K/uL Eosinophils # (Auto) 0.04 0-0.5 K/uL Basophils # (Auto) 0.01 0-0.2 K/uL RDW Standard Deviation 40.3 36.4-46.3 fL RDW Coefficient of Variation 12.3 11.5-14.5 % Immature Granulocyte % (Auto) 0.5 % Immature Granulocyte # (Auto) 0.04 0.00-0.02 K/uL Prothrombin Time 11.5 9.0-12.0 SECONDS Prothromb Time International Ratio 1.1 0.9-1.1 Sodium Level 126 136-145 mmol/L Potassium Level 3.4 3.5-5.1 mmol/L Chloride Level 89 98-107 mmol/L Carbon Dioxide Level 28 21-32 mmol/L Anion Gap 9.0 3-11 mmol/L Blood Urea Nitrogen 16 7-18 mg/dl Creatinine 1.01 0.60-1.40 mg/dl Est Creatinine Clear Calc Drug Dose 76.0 ml/min Estimated GFR () 85.1 Estimated GFR (Non- 73.4 BUN/Creatinine Ratio 15.5 10-20 Random Glucose 113 70-99 mg/dl Calcium Level 8.9 8.5-10.1 mg/dl Total Bilirubin 0.8 0.2-1 mg/dl Direct Bilirubin 0.2 0-0.2 mg/dl Aspartate Amino Transf (AST/SGOT) 20 15-37 U/L Alanine Aminotransferase (ALT/SGPT) 32 12-78 U/L Alkaline Phosphatase 104 45-117 U/L Total Protein 7.3 6.4-8.2 gm/dl Albumin 3.8 3.4-5.0 gm/dl Procalcitonin 0.06 0-0.5 ng/ml Influenza Type A Antigen POS for Influ A NEG Influenza Type B Antigen Neg for Influ B NEG Arterial Blood pH 7.47 7.35-7.45 Arterial Blood Partial Pressure CO2 36 35-46 mmHg Arterial Blood Partial Pressure O2 70 80-95 mm/Hg Arterial Blood HCO3 25 19-24 mmol/L Arterial Blood Oxygen Saturation 93.4 90-95 % Arterial Blood Base Excess 2.0 -9-1.8 mEq/L Arterial Blood Gas Delivery 2L Juan Test POS POS Test 11/09/17 19:06 11/10/17 06:20 11/10/17 07:29 11/10/17 11:47 Range/Units Bedside Glucose 156 201 199 70-99 mg/dl White Blood Count 5.43 4.8-10.8 K/uL Red Blood Count 4.01 4.7-6.1 M/uL Hemoglobin 13.0 14.0-18.0 g/dL Hematocrit 35.6 42-52 % Mean Corpuscular Volume 88.8 80-100 fL Mean Corpuscular Hemoglobin 32.4 25-34 pg Mean Corpuscular Hemoglobin Concent 36.5 32-36 g/dl RDW Standard Deviation 39.6 36.4-46.3 fL RDW Coefficient of Variation 12.3 11.5-14.5 % Platelet Count 150 130-400 K/uL Mean Platelet Volume 10.6 7.4-10.4 fL Sodium Level 121 136-145 mmol/L Potassium Level 3.5 3.5-5.1 mmol/L Chloride Level 86 98-107 mmol/L Carbon Dioxide Level 26 21-32 mmol/L Anion Gap 9.0 3-11 mmol/L Blood Urea Nitrogen 16 7-18 mg/dl Creatinine 0.92 0.60-1.40 mg/dl Est Creatinine Clear Calc Drug Dose 84.3 ml/min Estimated GFR () 95.3 Estimated GFR (Non- 82.2 BUN/Creatinine Ratio 17.8 10-20 Random Glucose 203 70-99 mg/dl Estimated Average Glucose 134 mg/dl Hemoglobin A1c 6.3 4.5-5.6 % Calcium Level 8.2 8.5-10.1 mg/dl Test 11/10/17 12:47 Range/Units Microbiology Results 11/09/17 Blood Culture, Received Pending 11/09/17 Blood Culture, Received Pending 11/09/17 MRSA DNA Surveillance Screen - Final, Complete Specimen Negative for MRSA by DNA Probe 11/09/17 Gram Stain - Final, Resulted 11/09/17 Sputum Culture, Resulted Pending EKG EKG on 11/09/2017 shows sinus rhythm with first-degree AV block. There is also left axis deviation. Ventricular rate was 88 bpm. Impression Assessment and Plan Mild asthma/COPD overlap syndrome with exacerbation Influenza A Hyponatremia Obstructive sleep apnea GERD Allergic rhinitis Mr. Connor has mild respiratory insufficiency secondary to influenza A. His symptoms are improving with Tamiflu and supportive care. I do not think that antibiotics are warranted at this time. Continue with bronchodilators as well as systemic corticosteroids. He will likely taper over to prednisone 40 mg tomorrow as he is no longer bronchospastic and saturating well on room air. Continue supplemental oxygen uses when necessary. Follow-up urine antigen and culture for Legionella and Mycoplasma IgM. Follow-up sputum and in her cultures. Continue PPI for GERD and inhaled corticosteroid for rhinitis. I advised that his close contacts have prophylactic treatment for influenza exposure. I will leave management of other medical problems to his primary team. Please contact me if you have any further questions or concerns.
--- NOTE | 2017-11-10 15:52 | Hospitalist Progress Note ---
Hospitalist Progress Note Date of Service Nov 10, 2017. (Glo Calvo ., YARITZAC) Subjective Pt evaluation today including: conversation w/ patient, physical exam, chart review, lab review, review of inpatient medication list Pain: None PO Intake: Tolerating PO diet Voiding: pichardo catheter in place Patient reports feeling well. He does report a cough that is mostly non- productive. He also reports a sore throat. He currently denies any shortness of breath or wheezing. The patient reports having lower abdominal pain earlier this morning, but this resolved after having bowel movements. He states he did not have any bowel movements yesterday, and he usually goes 2-3 times a day. The patient denies fevers, chills, sweats, chest pain, palpitations, claudication, wheezing, shortness of breath, nausea, vomiting, dysuria, hematuria, urinary retention, paralysis, weakness, numbness and tingling. Additional Comments: See HPI for pertinent positives and negatives. All other systems reviewed and negative. (Glo Calvo ., BALBIR-C) Objective Vital Signs Date Time Temp Pulse Resp B/P (MAP) Pulse Ox O2 Delivery O2 Flow Rate FiO2 11/10/17 15:19 36.7 68 18 130/68 (88) 90 11/10/17 14:07 65 16 96 Room Air 11/10/17 12:15 36.4 60 16 124/72 (89) 94 11/10/17 12:00 Room Air 11/10/17 08:13 62 11/10/17 08:00 Room Air 11/10/17 07:57 36.4 58 16 123/70 (87) 92 11/10/17 07:23 58 16 93 Room Air 11/10/17 04:00 Room Air 11/10/17 03:26 36.4 49 18 122/67 (85) 93 Room Air 11/10/17 01:50 72 16 94 Room Air 11/10/17 00:00 Room Air 11/09/17 23:35 36.4 55 16 135/80 (98) 91 Room Air 11/09/17 22:51 36.7 93 Room Air 11/09/17 21:51 62 121/73 (89) 93 Room Air 11/09/17 21:06 64 139/72 (94) 91 Room Air 11/09/17 19:39 37.5 73 19 134/74 (94) 95 Nasal Cannula 2.0 11/09/17 19:12 74 16 95 Nasal Cannula 3.0 11/09/17 17:03 38.2 87 19 127/73 (91) 92 Nasal Cannula 2.0 11/09/17 16:41 37.9 82 19 130/76 92 Nasal Cannula 2.0 (Glo Calvo ., PA-C) Physical Exam Notes: General appearance: +Obese. Well-developed, well-nourished, no apparent distress Head: Normocephalic, atraumatic Eyes: Normal inspection, PERRL, EOMI ENT: Normal ENT inspection, hearing grossly normal, pharynx normal Neck: Supple, no JVD, trachea midline Respiratory/Chest: +Decreased breath sounds. Lungs clear to auscultation, no respiratory distress Cardiovascular: Regular rate & rhythm, no gallop, no murmur Abdomen/GI: +Mildly distended, moving bowels. Normal bowel sounds, non-tender Extremities/Musculoskeletal: Normal inspection, no calf tenderness, no pedal edema Neurological/Psych: Alert, normal mood/affect, oriented x 3 Skin: Normal color, warm/dry, no rash (Glo Calvo ., PA-C) Laboratory Results Last 24 Hours Test 11/09/17 16:43 11/09/17 17:23 11/09/17 17:30 11/09/17 17:34 Bedside Glucose 120 mg/dl White Blood Count 8.85 K/uL Red Blood Count 4.28 M/uL Hemoglobin 14.1 g/dL Hematocrit 38.5 % Mean Corpuscular Volume 90.0 fL Mean Corpuscular Hemoglobin 32.9 pg Mean Corpuscular Hemoglobin Concent 36.6 g/dl Platelet Count 166 K/uL Mean Platelet Volume 9.9 fL Neutrophils (%) (Auto) 67.2 % Lymphocytes (%) (Auto) 10.7 % Monocytes (%) (Auto) 21.0 % Eosinophils (%) (Auto) 0.5 % Basophils (%) (Auto) 0.1 % Neutrophils # (Auto) 5.95 K/uL Lymphocytes # (Auto) 0.95 K/uL Monocytes # (Auto) 1.86 K/uL Eosinophils # (Auto) 0.04 K/uL Basophils # (Auto) 0.01 K/uL RDW Standard Deviation 40.3 fL RDW Coefficient of Variation 12.3 % Immature Granulocyte % (Auto) 0.5 % Immature Granulocyte # (Auto) 0.04 K/uL Prothrombin Time 11.5 SECONDS Prothromb Time International Ratio 1.1 Sodium Level 126 mmol/L Potassium Level 3.4 mmol/L Chloride Level 89 mmol/L Carbon Dioxide Level 28 mmol/L Anion Gap 9.0 mmol/L Blood Urea Nitrogen 16 mg/dl Creatinine 1.01 mg/dl Est Creatinine Clear Calc Drug Dose 76.0 ml/min Estimated GFR () 85.1 Estimated GFR (Non- 73.4 BUN/Creatinine Ratio 15.5 Random Glucose 113 mg/dl Calcium Level 8.9 mg/dl Total Bilirubin 0.8 mg/dl Direct Bilirubin 0.2 mg/dl Aspartate Amino Transf (AST/SGOT) 20 U/L Alanine Aminotransferase (ALT/SGPT) 32 U/L Alkaline Phosphatase 104 U/L Total Protein 7.3 gm/dl Albumin 3.8 gm/dl Procalcitonin 0.06 ng/ml Influenza Type A Antigen POS for Influ A Influenza Type B Antigen Neg for Influ B Arterial Blood pH 7.47 Arterial Blood Partial Pressure CO2 36 mmHg Arterial Blood Partial Pressure O2 70 mm/Hg Arterial Blood HCO3 25 mmol/L Arterial Blood Oxygen Saturation 93.4 % Arterial Blood Base Excess 2.0 mEq/L Arterial Blood Gas Delivery 2L Juan Test POS Test 11/09/17 19:06 11/10/17 00:00 11/10/17 06:20 11/10/17 07:29 Bedside Glucose 156 mg/dl 201 mg/dl White Blood Count 5.43 K/uL Red Blood Count 4.01 M/uL Hemoglobin 13.0 g/dL Hematocrit 35.6 % Mean Corpuscular Volume 88.8 fL Mean Corpuscular Hemoglobin 32.4 pg Mean Corpuscular Hemoglobin Concent 36.5 g/dl RDW Standard Deviation 39.6 fL RDW Coefficient of Variation 12.3 % Platelet Count 150 K/uL Mean Platelet Volume 10.6 fL Sodium Level 121 mmol/L Potassium Level 3.5 mmol/L Chloride Level 86 mmol/L Carbon Dioxide Level 26 mmol/L Anion Gap 9.0 mmol/L Blood Urea Nitrogen 16 mg/dl Creatinine 0.92 mg/dl Est Creatinine Clear Calc Drug Dose 84.3 ml/min Estimated GFR () 95.3 Estimated GFR (Non- 82.2 BUN/Creatinine Ratio 17.8 Random Glucose 203 mg/dl Estimated Average Glucose 134 mg/dl Hemoglobin A1c 6.3 % Calcium Level 8.2 mg/dl Test 11/10/17 11:47 11/10/17 12:47 11/10/17 14:57 Bedside Glucose 199 mg/dl (Glo Calvo ., PASloaneC) Assessment and Plan 72 y/o male with a history of COPD/asthma, allergic rhinitis, GERD, generalized anxiety disorder, hypertension, DM II, obesity, and ROBERT who presents from his pulmonary office with hypoxia, cough and shortness of breath. Hypoxia, fever, influenza A, COPD exacerbation--improving -Admit to telemetry. No acute events overnight. Pt in sinus yossi/sinus rhythm with first degree AV block, HR 50s-70s -O2 by protocol. Currently on room air -Febrile on admission, afebrile today -Blood cultures and sputum culture pending -Influenza A positive -Tamiflu 75 mg PO BID x 5 days total -Solu-Medrol 60 mg IV q8h -Xopenex/Atrovent nebs q6h -Continue Pulmicort BID -Pulmonology consulted, appreciate recs: Antibiotics not necessary at this point. Can likely taper steroids down to prednisone tomorrow. -D/C azithromycin Hyponatremia--worsening -Sodium 121 on 11/10, down from 126 -Pt asymptomatic -Check serum and urine osmolality, urine random sodium -D/C IVF HTN--stable -Continue Norvasc 10 mg PO qd, Coreg 25 mg PO BID, Cardura 2 mg PO BID, HCTZ 25 mg PO qd, spironolactone 25 mg PO qd and Diovan 160 mg PO BID DM II--HgbA1c 6.3 on 11/10 -Hold metformin -Insulin sliding scale -Check BSGs q ac and qhs CARMEN -Continue alprazolam 0.5 mg PO hs DVT prophylaxis -Heparin 5000 units SC q8h Code Status -Level I, FULL RESUSCITATION STATUS (Glo Calvo ., YARITZAC) Supervising Note Dr. Stanlye I performed a history and physical examination on the patient. I reviewed above note and agree with it. I discussed plan with APC and patient. During my face to face encounter with the patient, I answered all of the patient's questions. (Mitchell Stanley M.D.)
[2017-11-10] MEDS: DOCUSATE SODIUM 100 MG CAP PO SCH (22:01)
[2017-11-10] MEDS: ALPRAZOLAM 0.5 MG TAB PO SCH (22:44)
[2017-11-11] VITALS (9 sets, daily range): BP systolic 117–159; BP diastolic 73–85; PULSE 61–78; TEMP 36.4–36.5; O2SAT 93–95
[2017-11-11] MEDS: METHYLPREDNISOLONE IV 60 MG in SYRINGE 0 ML IV SCH ×2 (00:10→10:40)
[2017-11-11] MEDS: IPRATROPIUM BROMIDE NEB SOLN 0.02% 2.5 ML VIAL INH SCH ×3 (02:34→14:51)
[2017-11-11] MEDS: LEVALBUTEROL 0.63MG/3 ML NEB INH SCH ×3 (02:34→14:51)
[2017-11-11 06:00] LABS: HEMATOCRIT 34.1 % (42-52); HEMOGLOBIN 12.7 g/dL (14.0-18.0); MEAN CELL VOLUME 88.3 fL (80-100); MEAN CORPUSCULAR HEMOGLOBIN 32.9 pg (25-34); MEAN CORPUSCULAR HGB CONC 37.2 g/dl (32-36); MEAN PLATELET VOLUME 9.7 fL (7.4-10.4); PLATELET COUNT 156 K/uL (130-400); RED CELL DISTRIBUTION WIDTH CV 12.2 % (11.5-14.5); RED CELL DISTRIBUTION WIDTH SD 38.8 fL (36.4-46.3); WHITE BLOOD COUNT 14.79 K/uL (4.8-10.8)
[2017-11-11] MEDS: HEPARIN SOD 5000 UNIT/0.5 ML CARP SQ SCH ×2 (06:27→15:19)
[2017-11-11 06:31] LABS: CALCIUM 8.4 mg/dl (8.5-10.1); CREATININE 0.87 mg/dl (0.60-1.40); POTASSIUM 3.7 mmol/L (3.5-5.1)
[2017-11-11] MEDS: BUDESONIDE 0.5 MG/2 ML VIAL (PULMICORT) INH SCH (07:49)
[2017-11-11] MEDS: INSULIN ASPART 100 UNITS/ML 3 ML PEN SC SCH ×3 (08:43→16:30)
[2017-11-11] MEDS: PANTOprazole SOD 40 MG TAB PO SCH (08:44)
[2017-11-11] MEDS: LACTOBACILLUS ACIDOPHILUS (FLORANEX) TAB PO SCH ×3 (08:44→16:39)
[2017-11-11] MEDS: ASPIRIN 81 MG ECTAB PO SCH (08:45)
[2017-11-11] MEDS: ASCORBIC ACID 500 MG TAB PO SCH (08:45)
[2017-11-11] MEDS: AMLODIPINE BESYLATE 5 MG TAB PO SCH (08:45)
[2017-11-11] MEDS: GUAIFENESIN 600 MG TABCR PO SCH (08:45)
[2017-11-11] MEDS: VALSARTAN 80 MG TAB PO SCH (08:46)
[2017-11-11] MEDS: DOXAZosin MESYLATE TAB 2 MG TAB PO SCH (08:46)
[2017-11-11] MEDS: OSELTAMIVIR PHOSPHATE 75 MG CAP PO SCH (08:47)
[2017-11-11] MEDS: MAGNESIUM OXIDE 400 MG TAB PO SCH (08:47)
[2017-11-11] MEDS: CARVEDILOL 25 MG TAB PO SCH (08:47)
[2017-11-11] MEDS ORDERED: DVN80 PO (14:53)
[2017-11-11] MEDS ORDERED: PRED20TA PO (15:09)
--- NOTE | 2017-11-11 15:12 | Discharge Instructions ---
Discharge Instructions Date of Service Nov 11, 2017. Admission Reason for Admission: Toxic Asthma Exacerbation Discharge Discharge Diagnosis / Problem: Asthma exacerbation/ flu Discharge Goals Goal(s): Decrease discomfort, Improve function Activity Recommendations Activity Limitations: as noted below Lifting Limitations: gradually increase as tolerated Return to work on Monday. Wear mask in cold weather to cover mouth and nose Followup with PCP in 1 week to recheck blood pressure. Current Hospital Diet Patient's current hospital diet: Diabetes Type 2 Diet Discharge Diet Recommended Diet: Diabetes Type 2 Diet Pending Studies Studies pending at discharge: no Laboratory Results Hemoglobin A1c Test 11/10/17 06:20 Range/Units Estimated Average Glucose 134 mg/dl Hemoglobin A1c 6.3 H 4.5-5.6 % Lipid Panel Test 10/16/17 09:40 Range/Units Triglycerides Level 127 0-150 mg/dl Cholesterol Level 143 0-200 mg/dl HDL Cholesterol 39 mg/dl Cholesterol/HDL Ratio 3.7 LDL Cholesterol, Calculated 79 mg/dl Medical Emergencies . Who to Call and When: Medical Emergencies: If at any time you feel your situation is an emergency, please call 911 immediately. . Non-Emergent Contact Non-Emergency issues call your: Primary Care Provider Call Non-Emergent contact if: you have any medication questions . . "Provider Documentation" section prepared by Mitchell Stanley. . VTE Core Measure Inpt VTE Proph given/why not?: Unfractionated heparin SQ
--- NOTE | 2017-11-11 15:13 | Discharge Summary ---
Discharge Summary Date of Service Nov 11, 2017. Discharge Summary Admission Date: Nov 09, 2017 at 15:56 Discharge Date: Nov 11, 2017 Immunizations: Have You Had Influenza Vaccine: Unknown History of Tetanus Vaccine?: Unknown History of Pneumococcal: No History of Hepatitis B Vaccine: Unknown Hospital Course This includes examination of the patient, discharge planning, medication reconciliation, and communication with other providers. Discharge Instructions Please refer to the electronic Patient Visit Report (Discharge Instructions) for additional information.
== END 2017-11-11 16:35 | disposition home or self-care (01) | DRG 153 ==
LOC: C.MS2W 15:56 → C.MED 17:34
PROVIDERS: ADMIT Internal Medicine; ATTEND Internal Medicine Sports Medicine
DX: J11.1 Influenza due to unidentified influenza virus with other respiratory manifestations (principal); J44.1 Chronic obstructive pulmonary disease with (acute) exacerbation; N39.0 Urinary tract infection, site not specified; E87.1 Hypo-osmolality and hyponatremia; K21.9 Gastro-esophageal reflux disease without esophagitis; F41.1 Generalized anxiety disorder; I10 Essential (primary) hypertension; Z79.84 Long term (current) use of oral hypoglycemic drugs; E66.9 Obesity, unspecified; E11.9 Type 2 diabetes mellitus without complications

== ENCOUNTER → 2017-11-09 | Outpatient (CLI) | payer OTHER ==
[~2017-11-09] MED LIST changes: +ACETAMINOPHEN 325 MG TAB ONE; -AMLO-114 PO; +AMLO10TA3 PO; -B-CO1CAP17 PO; +B-COCAP2 PO; +DVN80 PO; +PANT1TAB4 PO; +PRED20TA PO; -PRT40 PO; +SPIR25TA6 PO; -SPR25 PO
--- NOTE | 2017-11-09 13:54 | DIAGNOSTIC IMAGING REPORT ---
TWO VIEW CHEST CLINICAL HISTORY: COPD. Asthma exacerbation. FINDINGS: PA and lateral chest radiographs are compared to study dated 01/31/2017 and correlated with chest CT dated 02/28/2017. The heart is top normal for projection. There is mild atherosclerotic calcification of the thoracic aorta. Chronic interstitial thickening is similar to previous. There is minimal dependent atelectasis. No airspace consolidation or large pleural effusion is identified. There is no pneumothorax. The skeletal structures are osteopenic. The bony thorax appears intact. IMPRESSION: No active disease in the chest. Electronically signed by: Joey Spencer M.D. 11/09/2017 1:53 PM Dictated Date/Time: 11/09/2017 1:52 PM
== END | disposition home or self-care (01) ==
LOC: C.RAD1850 13:37
PROVIDERS: ATTEND Internal Medicine Critical Care Medicine
DX: J45.901 Unspecified asthma with (acute) exacerbation (principal); J44.9 Chronic obstructive pulmonary disease, unspecified

== ENCOUNTER → 2017-11-15 | Outpatient (CLI) | payer OTHER ==
[~2017-11-15] MED LIST changes: -DVN/160 PO; +DVN80 PO; -HYDR25TA5 PO; +PRED20TA PO; -SPR25 PO
[2017-11-15 14:02] LABS: BLOOD UREA NITROGEN 17 mg/dl (7-18); CALCIUM 8.9 mg/dl (8.5-10.1); CARBON DIOXIDE 30 mmol/L (21-32); GLUCOSE 112 mg/dl (70-99); POTASSIUM 3.8 mmol/L (3.5-5.1); SODIUM 135 mmol/L (136-145)
== END | disposition home or self-care (01) ==
LOC: C.LABBC 10:18
PROVIDERS: ATTEND Physician Assistant Medical
DX: I10 Essential (primary) hypertension (principal); R73.9 Hyperglycemia, unspecified

== ENCOUNTER → 2017-12-04 | Outpatient (CLI) | payer OTHER ==
[~2017-12-04] MED LIST changes: +OPTIRAY 320 IV PRN; -PRED20TA PO
--- NOTE | 2017-12-04 13:33 | DIAGNOSTIC IMAGING REPORT ---
(CHEST) THORAX WITH CLINICAL HISTORY: 72 years-old Male presenting with G47.33 Obstructive sleep apnea. TECHNIQUE: Multidetector CT imaging of the chest was performed after the administration of intravenous contrast. IV contrast: 24 mL of Optiray 320. A dose lowering technique was used consistent with the principles of ALARA (as low as reasonably achievable). COMPARISON: 02/28/2017. CT DOSE (mGy.cm): The estimated cumulative dose is 649.78 mGycm. 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 On soft tissue windows, normal thyroid and thoracic inlet. Bilateral gynecomastia. Right sternalis muscle noted. No axillary, supraclavicular, or mediastinal lymphadenopathy. Evaluation of the neil limited without intravenous contrast. Atherosclerosis of the aorta. Normal heart size. Coronary artery calcification. No pericardial or pleural effusion. Well-defined hypodense lesion in the right hepatic lobe likely hepatic cyst. Mild esophageal wall thickening is unchanged. On lung windows, minimal dependent changes in the right lower lobe as on prior exam. Solid 4 mm peripheral pulmonary nodule in the right upper lobe (series 4 image 103), unchanged. Subsolid 3 mm nodule in the right middle lobe (series 4 image 151), unchanged. Fissural triangular solid 5-6 mm nodule in the left lower lobe (series 4 image 192), unchanged. No new pulmonary nodule. No new infiltrate. Airways patent. On bone windows, degenerative changes of the glenohumeral joints and spine. IMPRESSION: 1. Stable appearance of multiple pulmonary nodules, the largest measuring 6 mm in the left upper lobe. Specifically, the solid 4 mm right upper lobe pulmonary nodule not seen in 2006 is unchanged since the most recent exam in February 2017. No new pulmonary nodule. Follow-up as below. Please refer to below summary of Fleischner Society 2017 recommendations for follow-up of incidental CT nodules (H Elsie et al. Guidelines for management of incidental pulmonary nodules detected on CT images: From the Fleischner Society 2017. Radiology 2017; 284: 228-243.) SOLID NODULES Single nodule; size < 6 mm * Low risk patients: No routine follow-up * High risk patients: Optional CT at 12 months Single nodule; size 6-8 mm * Low risk patients: CT at 6-12 months, then consider CT at 18-24 months * High risk patients: CT at 6-12 months, then at 18-24 months Single nodule; size > 8 mm * Either low or high risk patients: Considered CT at 3 months, PET/CT, or tissue sampling Multiple nodules; size < 6 mm * Low risk patients: No routine follow up * High risk patients: Optional CT at 12 months Multiple nodules; size 6-8 mm * Low risk patients: CT at 3-6 months, then consider CT at 18-24 months * High risk patients: CT at 3-6 months, then at 18-24 months Multiple nodules; size > 8 mm * Low risk patients: CT at 3-6 months, then consider at 18-24 months * High risk patients: CT at 3-6 months, then at 18-24 months Note: These guidelines apply to incidental nodules. These guidelines do not apply to patients younger than 35 years, immunocompromised patients, or patients with cancer. * Low risk patients: Minimal or absent history of smoking and/or other known risk factors * High risk patients: History of smoking, exposure to other carcinogens, emphysema, fibrosis, upper lobe location, family history of lung cancer, etc. * If a nodule up to 8 mm is partly solid or is ground glass, further follow-up is required after 24 months to exclude possible slow growing adenocarcinoma. SUBSOLID NODULES Single ground-glass nodule * Nodule size < 6 mm: No routine follow-up * Nodule size > or = 6 mm: CT at 6-12 months to confirm persistence, then CT every 2 years until 5 years Single part-solid nodule * Nodule size < 6 mm: No routine follow-up * Nodules size > or = 6 mm: CT at 3-6 months to confirm persistence. If unchanged and solid component remains < 6 mm, annual CT should be performed for 5 years Multiple nodules * Nodule size < 6 mm: CT at 3-6 months. If stable, consider CT at 2 and 4 years. * Nodules size > or = 6 mm: CT at 3-6 months. Subsequent management based on the most suspicious nodule(s) Electronically signed by: Azar Deras M.D. 12/04/2017 1:32 PM Dictated Date/Time: 12/04/2017 1:23 PM
== END | disposition home or self-care (01) ==
LOC: C.CTS 12:51
PROVIDERS: ATTEND Physician Assistant
DX: G47.33 Obstructive sleep apnea (adult) (pediatric) (principal)

== ENCOUNTER → 2017-12-21 | Outpatient (CLI) | payer OTHER ==
[~2017-12-21] MED LIST changes: -OPTIRAY 320 IV PRN
[2017-12-21 14:17] LABS: BLOOD UREA NITROGEN 14 mg/dl (7-18); CALCIUM 9.5 mg/dl (8.5-10.1); CARBON DIOXIDE 28 mmol/L (21-32); GLUCOSE 154 mg/dl (70-99); POTASSIUM 3.9 mmol/L (3.5-5.1); SODIUM 132 mmol/L (136-145)
== END | disposition home or self-care (01) ==
LOC: C.LABBC 10:26
PROVIDERS: ATTEND Physician Assistant Medical
DX: I10 Essential (primary) hypertension (principal)

== ENCOUNTER → 2017-12-22 | Outpatient (CLI) | payer OTHER ==
--- NOTE | 2017-12-22 10:22 | DIAGNOSTIC IMAGING REPORT ---
R ELBOW MIN 3 VIEWS HISTORY: 72 years-old Male CHRONIC RIGHT ELBOW PAIN chronic right elbow pain COMPARISON: None available TECHNIQUE: 3 views of the right elbow FINDINGS: There is moderate spurring about the elbow with enthesophytes noted within the expected locations of the common extensor and flexor tendons. Mild joint space narrowing is also noted about the elbow. No acute fracture or subluxation. No large joint effusion or opaque foreign body. 6 mm ossified structure superior to the radiocapitellar joint suggests marginal osteophyte with loose body thought to be less likely. IMPRESSION: Degenerative changes about the elbow as above without acute fracture or subluxation. The above report was generated using voice recognition software. It may contain grammatical, syntax or spelling errors. Electronically signed by: Cassius Gaspar M.D. 12/22/2017 10:21 AM Dictated Date/Time: 12/22/2017 10:19 AM
== END | disposition home or self-care (01) ==
LOC: C.RDSM 10:10
PROVIDERS: ATTEND Dermatology
DX: M25.521 Pain in right elbow (principal)

== ENCOUNTER → 2018-01-16 | Outpatient (CLI) | payer OTHER ==
[2018-01-16 17:10] LABS: BLOOD UREA NITROGEN 16 mg/dl (7-18); CALCIUM 8.9 mg/dl (8.5-10.1); CARBON DIOXIDE 26 mmol/L (21-32); CREATININE 0.99 mg/dl (0.60-1.40); GLUCOSE 152 mg/dl (70-99); POTASSIUM 4.2 mmol/L (3.5-5.1); SODIUM 132 mmol/L (136-145)
== END | disposition home or self-care (01) ==
LOC: C.LABBC 12:33
PROVIDERS: ATTEND Physician Assistant Medical
DX: I10 Essential (primary) hypertension (principal)

== ENCOUNTER → 2018-03-28 | Outpatient (CLI) | payer OTHER ==
--- NOTE | 2018-03-28 14:13 | DIAGNOSTIC IMAGING REPORT ---
L KNEE 1 OR 2 VIEWS ROUTINE HISTORY: 72 years-old Male M25.569 Knee [id number] acute left knee pain COMPARISON: Left knee radiographs 04/10/2017 TECHNIQUE: 2 views of the left knee FINDINGS: Bones appear mildly demineralized. Left knee total joint arthroplasty with evidence of prior patellar resurfacing. Satisfactory alignment without evidence of hardware fracture or loosening. No acute fracture or dislocation. Small joint effusion. No opaque foreign body. IMPRESSION: 1. No acute fracture or dislocation. 2. Small left knee joint effusion with satisfactory alignment of left knee total joint arthroplasty. The above report was generated using voice recognition software. It may contain grammatical, syntax or spelling errors. Electronically signed by: Cassius Gaspar M.D. 03/28/2018 2:11 PM Dictated Date/Time: 03/28/2018 2:10 PM
== END | disposition home or self-care (01) ==
LOC: C.RAD1850 13:58
PROVIDERS: ATTEND Physician Assistant
DX: M25.462 Effusion, left knee (principal)

== ENCOUNTER 2020-09-16 10:18 | Observation (INO) ==
--- NOTE | 2020-08-17 17:00 | PAT Medication Instructions ---
Medication Instructions Date of Service August 17, 2020 Home Medications Medication Instructions Recorded carvedilol 25 mg tablet 25 mg PO BID #180 tab 01/16/20 valsartan 160 mg tablet 160 mg PO BID #180 tab 01/16/20 calcium citrate 315 mg 1 tab PO BID #60 tab 02/13/20 calcium-vitamin D3 6.25 mcg (250 unit) tablet doxazosin 2 mg tablet 2 mg PO BID #180 tab 05/19/20 metformin 500 mg tablet 500 mg PO BID #180 tab 05/19/20 cyclosporine 0.05 % eye drops in a 1 drops OP BID #30 ea 06/10/20 dropperette levalbuterol HCl 1.25 mg/3 mL 1.25 mg INH BID #4 box 07/23/20 solution for nebulization alprazolam 0.5 mg tablet 0.5 mg PO QPM #90 tab 07/27/20 ascorbate calcium (vitamin C) 500 mg tablet 500 mg PO QAM aspirin 81 mg tablet 81 mg PO QAM fexofenadine 180 mg tablet 180 mg PO QAM guaifenesin 600 mg tablet, extended release 12 hr 600 mg PO Q12H nystatin 500,000 unit tablet 500,000 units PO TID multivitamin 1 tab PO QAM carvedilol 25 mg tablet 25 mg PO BID valsartan 160 mg tablet 160 mg PO BID calcium citrate 315 mg calcium-vitamin D3 6.25 mcg (250 unit) tablet 1 tab PO BID doxazosin 2 mg tablet 2 mg PO BID metformin 500 mg tablet 500 mg PO BID pantoprazole 40 mg tablet,delayed release 40 mg PO QAM cyclosporine 0.05 % eye drops in a dropperette 1 drops OP BID antiarthritic combination no.2 900 mg tablet 900 mg PO QAM coenzyme Q10 100 mg tablet 200 mg PO QAM ibuprofen 200 mg tablet 600 mg PO QAM omega-3 fatty acids 1,000 mg capsule 1,000 mg PO QAM levalbuterol HCl 1.25 mg/3 mL solution for nebulization 1.25 mg INH BID alprazolam 0.5 mg tablet 0.5 mg PO QPM amlodipine 5 mg PO QAM duloxetine 30 mg PO QAM torsemide 20 mg PO QAM vitamin B complex [Super B Complex] 1 cap PO QAM Continue as directed nystatin 500,000 unit tablet 500,000 units PO TID ASK your surgeon for instructions ibuprofen 200 mg tablet 600 mg PO QAM STOP taking 2 weeks before surgery If surgery is within 2 weeks, stop taking as soon as possible. antiarthritic combination no.2 900 mg tablet 900 mg PO QAM coenzyme Q10 100 mg tablet 200 mg PO QAM omega-3 fatty acids 1,000 mg capsule 1,000 mg PO QAM DO NOT take the morning of surgery ascorbate calcium (vitamin C) 500 mg tablet 500 mg PO QAM fexofenadine 180 mg tablet 180 mg PO QAM guaifenesin 600 mg tablet, extended release 12 hr 600 mg PO Q12H multivitamin 1 tab PO QAM valsartan 160 mg tablet 160 mg PO BID calcium citrate 315 mg calcium-vitamin D3 6.25 mcg (250 unit) tablet 1 tab PO BID metformin 500 mg tablet 500 mg PO BID torsemide 20 mg PO QAM vitamin B complex [Super B Complex] 1 cap PO QAM Take morning of surgery With a small sip of water, OTHERWISE NOTHING TO EAT OR DRINK AFTER MIDNIGHT: aspirin 81 mg tablet 81 mg PO QAM carvedilol 25 mg tablet 25 mg PO BID doxazosin 2 mg tablet 2 mg PO BID pantoprazole 40 mg tablet,delayed release 40 mg PO QAM cyclosporine 0.05 % eye drops in a dropperette 1 drops OP BID levalbuterol HCl 1.25 mg/3 mL solution for nebulization 1.25 mg INH BID amlodipine 5 mg PO QAM duloxetine 30 mg PO QAM Take evening before surgery guaifenesin 600 mg tablet, extended release 12 hr 600 mg PO Q12H nystatin 500,000 unit tablet 500,000 units PO TID carvedilol 25 mg tablet 25 mg PO BID valsartan 160 mg tablet 160 mg PO BID calcium citrate 315 mg calcium-vitamin D3 6.25 mcg (250 unit) tablet 1 tab PO BID doxazosin 2 mg tablet 2 mg PO BID metformin 500 mg tablet 500 mg PO BID cyclosporine 0.05 % eye drops in a dropperette 1 drops OP BID levalbuterol HCl 1.25 mg/3 mL solution for nebulization 1.25 mg INH BID alprazolam 0.5 mg tablet 0.5 mg PO QPM Other Notes If you have any questions please call us at [phone] or [phone] or [phone] or [phone]
--- NOTE | 2020-08-18 10:42 | Anesthesiology Consultation ---
Date of Service August 18, 2020 Assessment & Plan (1) Encounter for pre-operative examination: COVID Status: As of 08/18 assessment, patient denies travel to endemic area, known exposure/sick contacts, or symptoms of COVID19. Patient instructed that they and their household members must follow strict social distancing guidelines, wear a mask in public and avoid travel for 14 days prior to surgery. Preoperative COVID19 testing to be completed prior to surgery per surgeon's ar rangements. Patient made aware to self-isolate as much as possible between COVID testing and surgery. BSG AM DOS Chart Review Chart Review: Acceptable Risk for Surgery (pending PCP clearance 08[place] [place] and Patient seen in Pre Admission Testing Teaching & Discussion Instructed NPO after midnight before surgery, except medications with 15 cc of water. Medication instructions provided according to the PAT guidelines. History Surgery Operation Date: 09/16/20 07:15 Proposed Procedures p Right Total Knee Replacement - Demond Oro MD Height/Weight Height: 5 ft 10 in Weight: 105.4 kg Allergies Allergy/AdvReac Type Severity Reaction Status Date / Time morphine Allergy Mild n/v Verified 08/14/20 10:16 Iodinated Contrast Media AdvReac Intermediate elevated Verified 08/14/20 10:16 creatinine codeine AdvReac Mild NAUSEA Verified 08/14/20 10:16 erythromycin base AdvReac Unknown GI UPSET Verified 08/14/20 10:16 meperidine AdvReac Unknown gi upset Verified 08/14/20 10:16 Medications Home Medications Medication Instructions Recorded Confirmed Last Taken ascorbate calcium (vitamin C) 500 500 mg PO QAM 07/05/19 08/14/20 Unknown mg tablet aspirin 81 mg tablet 81 mg PO QAM #30 tab 08/06/19 08/14/20 Unknown fexofenadine 180 mg tablet 180 mg PO QAM tab 08/06/19 08/14/20 Unknown guaifenesin 600 mg tablet, 600 mg PO Q12H tab 08/06/19 08/14/20 Unknown extended release 12 hr nystatin 500,000 unit tablet 500,000 units PO TID tab 08/06/19 08/14/20 Unknown multivitamin 1 tab PO QAM 11/27/19 08/14/20 Unknown carvedilol 25 mg tablet 25 mg PO BID #180 tab 01/16/20 08/14/20 Unknown valsartan 160 mg tablet 160 mg PO BID #180 tab 01/16/20 08/14/20 Unknown calcium citrate 315 mg 1 tab PO BID #60 tab 02/13/20 08/14/20 Unknown calcium-vitamin D3 6.25 mcg (250 unit) tablet doxazosin 2 mg tablet 2 mg PO BID #180 tab 05/19/20 08/14/20 Unknown metformin 500 mg tablet 500 mg PO BID #180 tab 05/19/20 08/14/20 Unknown pantoprazole 40 mg tablet,delayed 40 mg PO QAM tab 06/01/20 08/14/20 Unknown release cyclosporine 0.05 % eye drops in a 1 drops OP BID #30 ea 06/10/20 08/14/20 Unknown dropperette antiarthritic combination no.2 900 900 mg PO QAM tab 07/07/20 08/14/20 Unknown mg tablet coenzyme Q10 100 mg tablet 200 mg PO QAM 07/07/20 08/14/20 Unknown ibuprofen 200 mg tablet 600 mg PO QAM tab 07/07/20 08/14/20 Unknown omega-3 fatty acids 1,000 mg 1,000 mg PO QAM 07/07/20 08/14/20 Unknown capsule levalbuterol HCl 1.25 mg/3 mL 1.25 mg INH BID #4 box 07/23/20 08/14/20 Unknown solution for nebulization alprazolam 0.5 mg tablet 0.5 mg PO QPM #90 tab 07/27/20 08/14/20 Unknown amlodipine 5 mg PO QAM 08/14/20 08/14/20 Unknown duloxetine 30 mg PO QAM 08/14/20 08/14/20 Unknown torsemide 20 mg PO QAM 08/14/20 08/14/20 Unknown vitamin B complex [Super B Complex] 1 cap PO QAM 08/14/20 08/14/20 Unknown Past Medical History Medical History Acute and chronic respiratory failure with hypoxia 2018 2/2 influenza Allergic rhinitis Asthma Chronic obstructive pulmonary disease Follows with [facility] (Gonzalo Arizmendi) Degenerative joint disease Diabetes Diverticulosis of colon Esophageal spasm Generalized anxiety disorder GERD (gastroesophageal reflux disease) Hypertension Migraine headache hx Obesity Sleep apnea c pap. Pt reports full compliance. Exercise / Class Metabolic Activity II 4-5 Yardwork/Stairs/Walk up hill (Denies CP or SOB with 1 FOS) Past Family History Family History Sister Diabetes Hypertension Brother Hypertension Mother Hypertension Myocardial infarction Heart disease Stroke Father Hypertension Myocardial infarction Stroke Denies family history of Ovarian cancer Prostate cancer Breast cancer Colorectal cancer Past Surgical History Surgical History (Updated 08/14/20 @ 10:28 by Makenzie Mejia RN) H/O colonoscopy H/O rotator cuff surgery right and left H/O sinus surgery History of carpal tunnel release of both wrists History of esophagogastroduodenoscopy (EGD) History of left knee replacement S/P trigger finger release Past Anesthesia History No Family Hx of Anesthesia Complications History of PONV No Hx of PONV and No Hx of Motion Sickness Social History Smoking Status: Former smoker Do You Dip or Chew Tobacco: No Smoking End Date: Quit > 60yrs ago Hx Alcohol Use: Yes Alcohol type: beer alcohol intake frequency: holidays/special occasions only Hx Substance Use: No substance use type: does not use Review of Systems Pt denies any recent chest pain, shortness of breath, palpitations, cough, fev er, URI, or uncontrolled acid reflux (controlled with PPI). Physical Exam Vital Signs BP: 179/83 (pt did not take his diuretic this morning due to travel) P: 58bpm SPO2: 96% RA T: 97.9F R: 18 Constitutional + obese ENMT Mouth: + dentures (upper) and + macroglossia; no chipped teeth and no loose teeth Thyromental Distance: > or= 3.5 Finger Breadths Mallampati Class: II Neck + thick neck and + facial hair (very short mustache); neck extension not limited Respiratory normal respiratory effort Auscultation: lungs clear to auscultation bilaterally Prolonged exp phase Cardiovascular Rate/Rhythm: regular rhythm and + bradycardic Heart Sounds: no murmur Vessels: no carotid bruit Testing Laboratory Results 08/18/20 11:05 08/18/20 11:05 PT 10.9 Seconds (9.0-12.0) 08/18/20 11:05 INR 1.0 (0.9-1.1) 08/18/20 11:05 APTT 28.5 Seconds (21.0-31.0) 08/18/20 11:05 Hemoglobin A1c 7.0 % (4.5-5.6) H 08/18/20 11:05 Blood Type B Negative 08/18/20 11:05 Antibody Screen NEGATIVE 08/18/20 11:05 Electrocardiogram Date: 08/18/20 Findings: + SB @ (59bpm with 1st degree AV block ) Left axis deviation. Chest X-Ray Date: 08/18/20 FINDINGS: The cardiac and mediastinal contours remain stable. There is persistent blunting of the costophrenic angle suggesting trace effusions. There are minor fibrotic-type changes within the right midlung zone also stable. There is no failure. There is no lobar consolidation.[There is minimal basilar atelectasis IMPRESSION: Trace pleural effusions similar to the prior study. Minimal basilar atelectasis. Stress Test Date: 07/23/18 Type: DSE Resting EF: 55-60% The LV wall motion is normal at rest. Appropriate increase in left ventricular systolic function and decrease in cavity size. No stress-induced segmental wall motion abnormalities. The aortic valve is trileaflet. The aortic valve opens well. Grade 2 diastolic dysfunction. IVC collapses normally, RAP estimated between 3-5 mmHg. EKG is negative for any ischemic changes, however this was a suboptimal study as 85% of APMPHR was not achieved. Echo imaging does not demonstrate wall motion normalities consistent with ischemia, however this is suboptimal study.
--- NOTE | 2020-08-18 11:31 | XRay Report ---
XR chest Pre-admission PA/Lat CLINICAL HISTORY: Preoperative chest COMPARISON STUDY: 11/09/2017 FINDINGS: The cardiac and mediastinal contours remain stable. There is persistent blunting of the cos tophrenic angle suggesting trace effusions. There are minor fibrotic-type changes within the right mi dlung zone also stable. There is no failure. There is no lobar consolidation.[There is minimal basila r atelectasis IMPRESSION: Trace pleural effusions similar to the prior study. Minimal basilar atelectasis. ACT 112: Negative or not required by law. Electronically signed by: Shin Agrawal M.D. 08/18/2020 11:29 AM
[2020-08-18 12:08] LABS: Basophils # (auto) 0.03 K/uL (0-0.2); Basophils % (auto) 0.4 %; Eosinophils # (auto) 0.43 K/uL (0-0.5); Eosinophils % (auto) 5.4 %; Hematocrit (blood only) 38.4 % (42-52); Hemoglobin 13.5 g/dL (14.0-18.0); Immature Granulocytes # (auto) 0.04 K/uL (0.00-0.02); Immature Granulocytes % (auto) 0.5 %; Lymphocytes # (auto) 2.47 K/uL (1.2-3.4); Lymphocytes % (auto) 31.3 %; Mean Corpuscular Hemoglobin 31.5 pg (25-34); Mean Corpuscular Hgb Conc 35.2 g/dL (32-36); Mean Corpuscular Volume 89.5 fL (80-100); Mean Platelet Volume 10.5 fL (7.4-10.4); Monocytes # (auto) 0.75 K/uL (0.11-0.59); Monocytes % (auto) 9.5 %; Neutrophils # (auto) 4.18 K/uL (1.4-6.5); Neutrophils % (auto) 52.9 %; Platelet Count 215 K/uL (130-400); RDW Coefficient of Variation 12.1 % (11.5-14.5); Red Blood Count 4.29 M/uL (4.7-6.1)
[2020-08-18 12:21] LABS: Partial Thromboplastin Time 28.5 Seconds (21.0-31.0); Prothrombin Time 10.9 Seconds (9.0-12.0)
[2020-08-18 12:22] LABS: BUN Creatinine Ratio 14.4 (10-20); Calcium 9.2 mg/dl (8.5-10.1); Creatinine Clr Calc Pharmacy 81.3 ml/min; Est GFR (African American) 90.9; Est GFR (Non-African American) 78.4; Potassium 4.1 mmol/L (3.5-5.1)
[2020-08-18 12:23] LABS: C Reactive Protein 1.06 mg/dl (0-0.29)
[2020-08-18 12:54] LABS: Estimated Average Glucose 154 mg/dl
--- NOTE | 2020-08-18 14:20 | Electrocardiogram Report ---
Test Reason : Blood Pressure : / mmHG Vent. Rate : 059 BPM Atrial Rate : 059 BPM P-R Int : 256 ms QRS Dur : 114 ms QT Int : 412 ms P-R-T Axes : 063 -37 040 degrees QTc Int : 407 ms Sinus bradycardia with 1st degree A-V block Left axis deviation Abnormal ECG When compared with ECG of 09-NOV-2017 17:16, Vent. rate has decreased BY 29 BPM Criteria for Inferior infarct are no longer Present Confirmed by Huang Law ([id number]) on 08/18/2020 2:20:18 PM Referred By: Demond Oro Confirmed By:Huang Law
--- NOTE | 2020-09-12 13:34 | History and Physical Report ---
DATE OF ADMISSION: 09/16/2020 CHIEF COMPLAINT: Persistent right knee pain and discomfort. HISTORY OF PRESENT ILLNESS: The patient is a 75-year-old gentleman who I have been following for the past 1+ years for persistent right knee pain and discomfort. He has got a long history of knee problems and had his left knee replaced by Dr. Ornelas back in 2016. Unfortunately, this has not done well from his standpoint. He continues to have pain for unclear reasons. He has had a workup, which has all been negative. Despite this, he continues to be limited by the right knee pain as well. He has got known arthritis. We put him through extensive conservative treatment trying to manage this over the past year without success. He has had steroid shots and viscosupplementation, which do not help. He would like to have his knee fixed despite his limited result from his left knee. Denies any fevers. HE DOES REPORT A POSSIBLE METAL ALLERGY AND IS WORRIED ABOUT THAT. PAST MEDICAL HISTORY: 1. Hypertension. 2. Asthma/COPD. 3. Sleep apnea with CPAP machine. 4. Diabetes. 5. Low back pain. 6. Gastroesophageal reflux disease. 7. Obesity. PAST SURGICAL HISTORY: Includes: 1. Bilateral rotator cuff repairs. 2. Bilateral carpal tunnel releases. 3. Left knee replacement done by Dr. Ornelas on 09/14/2016. 4. Sleep apnea surgery. ALLERGIES: CODEINE, MORPHINE, WHICH CAUSES NAUSEA AND ERYTHROMYCIN. CURRENT MEDICINES: Include: 1. Alprazolam 0.5 mg in the evening. 2. Amlodipine. 3. Vitamin C. 4. Aspirin 81 mg a day. 5. Vitamin D3. 6. Carvedilol 25 mg twice a day. 7. Cyclosporine ophthalmic ointment. 8. Doxazosin 2 mg twice a day. 9. Fexofenadine 100 mg. 10. Guaifenesin. 11. Ibuprofen. 12. Losartan. 13. Meloxicam. 14. Metformin. 15. Multivitamin. 16. Unspecified statin. 17. Pantoprazole. 18. Spiriva inhaler. 19. Torsemide. 20. Valsartan. 21. Xopenex. SOCIAL HISTORY: A 75-year-old male. He is from [place]. He does not smoke. REVIEW OF SYSTEMS: Denies any current chest pain or shortness of breath. No history of DVT or PE. No known bleeding problems. PHYSICAL EXAMINATION: GENERAL: Shows a pleasant, middle-aged male, looks to be in reasonably good health. Fairly large gentleman. HEENT: Benign. NECK: Supple, no lymphadenopathy. LUNGS: Clear to auscultation. HEART: Has a regular rate and rhythm. ABDOMEN: Soft, nontender, nondistended. EXTREMITIES: Grossly neurovascularly intact except as follows: Examination of the right knee reveals the patient walks with a bit of a limp. He has got varus alignment to his knee with a little bit of a varus thrust. He is tender over the medial joint line. Small knee effusion. Range of motion 5-120. No instability. No pain with hip motion. Examination of the left knee reveals a well-healed incision. Knee alignment looks good and anatomic. Range of motion is 0-110. No instability. Minimal joint effusion. No redness or warmth. X-RAYS: X-rays of the right knee reveal advanced right knee DJD. He has got complete loss of the medial joint space. He has subchondral sclerosis and tibial femoral subluxation. X-rays of the left knee reveal a rotating platform total knee arthroplasty. Components looked to be in good position without signs of problems. No signs of loosening, wear or infection. A little tilt to the patella. ASSESSMENT: A 75-year-old gentleman 4 years out from left knee replacement with advanced right knee degenerative joint disease. He has failed all conservative measures. Despite his somewhat displeasure with his left knee, he would really like to have his right knee replaced as he has got no relief from the injections and conservative care. PLAN: We are going to cautiously proceed with right total knee replacement. We talked about the risks and benefits of this procedure including but not limited to DVT, PE, , infection, neurological injury, vascular injury, bleeding problem, pain, limited range of motion, stiffness, failure to relieve symptoms, incomplete relief of symptoms, need for further surgery in the future, fracture, leg length inequality, nerve palsy, etc. The patient understands and desires to proceed. Informed consent was obtained. We are going to use a Arizmendi and Nephew knee in order to avoid the metal issues. I told him there is no guarantee that this will do any better than his other knee, but we have exhausted all conservative care and he would like to proceed. We did talk to him about holding the metformin on the morning of surgery and taking his carvedilol. He should bring his CPAP machine to the hospital.
[~2020-09-16 10:18] MED LIST changes: +ACETAMINOPHEN 500 MG TAB PO SCH; -ALPR-411 PO; -AMLO-114 PO; -ASCO500T16 PO; -ASPI81TA28 PO; -B-CO1CAP17 PO; +BUPIVACAINE 0.25% 30 ML VIAL ONE; +BUPIVACAINE 0.5 % 5 MG/1 ML PF 10ML VIAL ONE; +BUPIVACAINE LIPOSOME/PF 266 MG, BUPIVACAINE/EPINEPHRINE 50 ML, SODIUM CHLORIDE 0.9% 30 ... INFIL SCH; -CALC-323 PO; -CARV25TA2 PO; -CYAN100T6 PO; -CYCL0.052 OP; -DOXA2TAB PO; -DVN80 PO; +FAMOTIDINE 20 MG TAB PO SCH; -FEXO1TAB46 PO; +GABAPENTIN 300 MG CAP PO SCH; -GLC/500 PO; -LEVA45AE INH; +LR 500ML BOLUS, THEN 15ML/HR IV SCH; +LR 60ML/HR IV SCH; -MAGN400T6 PO; +METOCLOPRAMIDE HCL 10 MG TABLET PO SCH; -MULT-506 PO; -PLMINS INH; -PRT40 PO; -PSEU60TA80 PO; +TRANEXAMIC ACID 1,000 MG **IV Intra-op IV SCH; -[UNRECOGNIZED DRUG - CODE] PO; +ceFAZolin 2000MG 2,000 MG/15 ML SYR IV SCH
[2020-09-16] MEDS ORDERED: ePHEDrine sulfate 50 MG/ML AMP IV PRN (12:07)
[2020-09-16] MEDS ORDERED: ONDANSETRON INJ 2 MG/ML 2 ML VIAL IV PRN ×2 (12:07→17:09)
[2020-09-16] MEDS ORDERED: ATROPINE SULFATE 0.1 MG/ML 10ML SYR IV PRN (12:07)
[2020-09-16] MEDS ORDERED: fentaNYL citrate 100 MCG/2 ML VIAL IV PRN (12:07)
[2020-09-16] MEDS ORDERED: MIDAZOLAM HCL 1 MG/ML 2ML VIAL ONE (12:17)
[2020-09-16] MEDS ORDERED: ePHEDrine sulfate 50 MG/ML SYR ONE (12:17)
[2020-09-16] MEDS ORDERED: LIDOCAINE HCL 2% 2 ML VIAL/AMP(20MG/ML) INFIL ONE (12:17)
[2020-09-16] MEDS ORDERED: PROPOFOL IV EMULSION 10 MG/ML 20 ML VIAL IV ONE ×2 (12:17→14:04)
[2020-09-16] MEDS ORDERED: fentaNYL citrate 100 MCG/2 ML VIAL ONE (12:18)
[2020-09-16] MEDS ORDERED: SODIUM CHLORIDE 0.9% INJ 10 ML VIAL ONE (13:28)
[2020-09-16] MEDS ORDERED: BUPIVACAINE LIPOSOME 1.3% 266 MG/20 ML VIAL ONE ×2 (13:28→13:33)
[2020-09-16] MEDS ORDERED: BUPIVACAINE 0.25% 30 ML VIAL ONE ×2 (13:28→13:33)
[2020-09-16] MEDS ORDERED: BACITRACIN INJ 50,000 UNIT VIAL ONE (13:28)
[2020-09-16] MEDS ORDERED: EPINEPHrine INJ 1 MG/ML AMP ONE (13:28)
[2020-09-16] MEDS ORDERED: SODIUM CHLORIDE 0.9% PF 50 ML VIAL ONE (13:29)
--- NOTE | 2020-09-16 13:30 | History & Physical Bridge Note ---
Date of Service September 16, 2020 History & Physical Bridge Note I have examined the patient, reviewed the History & Physical and in the interval since the performance of the History & Physical I have noted the following changes of clinical significance: no changes noted
--- NOTE | 2020-09-16 15:37 | Post Operative Brief Note ---
PG Immediate Post Op with CF Date of Surgery September 16, 2020 Pre & Post Diagnosis Operation Date: 09/16/20 12:45 Pre-Op Diagnosis: Right Knee Degenerative Joint Disease Post-Op Diagnosis: Right Knee Degenerative Joint Disease I identified the patient and participated in the time-out.: Yes Procedure Operation Date: 09/16/20 12:45 Actual Procedures p Right Total Knee Replacement, Cemented(Right) - Demond Oro MD Surgeon Demond Oro MD Weed Cooking Operator MADDIE Corona Estimated Blood Loss 50 Findings Consistent with Post-Op Diagnosis Fluids 1800 cc Specimens Specimen Description: Permanent Specimen A: Right knee bone and tissue Drains Bridges Catheter Anesthesia Type Spinal MAC Complications none Disposition Disposition: Recovery Room
--- NOTE | 2020-09-16 16:17 | Anesthesiology Progress Note ---
Date of Service September 16, 2020 Anesthesia Post Procedure Vital Signs Vital Signs: Temp Pulse Pulse Resp BP BP Pulse Ox 09/16/20 16:10 52 L 18 161/86 H 95 09/16/20 16:00 51 L 13 156/89 H 96 09/16/20 15:50 53 L 15 148/77 H 98 09/16/20 15:41 36.5 C 52 L 16 146/76 H 99 09/16/20 11:25 60 18 182/95 H 96 09/16/20 10:53 36.8 C 61 20 168/97 H 98 Pain Intensity Right Knee: Pain Intensity: 2 Transfer of Care Handoff Completed per policy Notes Mental Status: alert / awake / arousable and participated in evaluation Nausea / Vomiting: adequately controlled Pain: adequately controlled Airway Patency, RR, SpO2: stable & adequate BP & HR: stable & adequate Hydration State: stable & adequate Neuraxial Anesthesia: was administered and sensory block is resolving Anesthetic Complications: no major complications apparent and Pt Satisfied with anesthetic care
--- NOTE | 2020-09-16 16:41 | XRay Report ---
XR knee RT 1 or 2V routine CLINICAL HISTORY: Surgical Post Op COMPARISON: Knee radiographs October 06, 2017. FINDINGS: Alignment of the total right knee arthroplasty is anatomic. No fracture or unexpected radi opaque foreign body. IMPRESSION: Expected findings following total right knee arthroplasty. ACT 112: Negative or not required by law. Electronically signed by: Dannie Schultz M.D. 09/16/2020 4:39 PM
[2020-09-16] MEDS ORDERED: NALOXONE HCL 0.4 MG/1 ML VIAL/CARP IV PRN (17:09)
[2020-09-16] MEDS ORDERED: GLUCAGON FOR INJ 1 MG VIAL SQ PRN (17:09)
[2020-09-16] MEDS ORDERED: ALUMINUM/MAGNESIUM SUSP 30 ML UDC PO PRN (17:09)
[2020-09-16] MEDS ORDERED: GLUCOSE 10 TABS/TUBE PO PRN (17:09)
[2020-09-16] MEDS ORDERED: GLUCOSE 40% GEL 15 GM TUBE PO PRN (17:09)
[2020-09-16] MEDS ORDERED: bisacodyL 10 MG SUPP PR PRN (17:09)
[2020-09-16] MEDS ORDERED: HYDROmorphone INJ 0.5 MG/0.5 ML SYR IV PRN (17:09)
[2020-09-16] MEDS ORDERED: CARBOHYDRATES FOR HYPOGLYCEMIA PO PRN (17:09)
[2020-09-16] MEDS ORDERED: TAMSULOSIN HCL 0.4 MG CAP PO PRN (17:09)
[2020-09-16] MEDS ORDERED: DEXTROSE 50% 50 ML SYRINGE IV PRN (17:09)
[2020-09-16] MEDS ORDERED: METOCLOPRAMIDE HCL INJ 5 MG/ML 2 ML VIAL IV PRN (17:09)
[2020-09-16] MEDS ORDERED: PHARMACY GLYCEMIC MGMT CONSULT PRN (17:14)
[2020-09-16] MEDS: SODIUM CHLORIDE 0.9% 1000ML 1,000 ML IV SCH (17:46)
[2020-09-16] MEDS: FERROUS GLUCONATE 324 MG TAB PO SCH (18:20)
[2020-09-16] MEDS: KETOROLAC TROMETHAMINE 15 MG/ML VIAL IV SCH (18:21)
[2020-09-16] MEDS: ASCORBIC ACID 500 MG TAB PO SCH (18:21)
[2020-09-16] MEDS: INSULIN ASPART 100 UNITS/ML 3 ML PEN SC SCH ×2 (18:35→21:24)
--- NOTE | 2020-09-16 19:02 | Operative Report ---
Post Operative Report Pre & Post Diagnosis Operation Date: 09/16/20 12:45 Pre-Op Diagnosis: Right Knee Degenerative Joint Disease Post-Op Diagnosis: Right Knee Degenerative Joint Disease I identified the patient and participated in the time-out.: Yes Procedure Operation Date: 09/16/20 12:45 Actual Procedures p Right Total Knee Replacement, Cemented(Right) - Demond Oro MD Surgeon Demond Oro MD Pediatric Associate MADDIE Corona Estimated Blood Loss 50 Findings Consistent with Post-Op Diagnosis Operative findings revealed advanced right knee DJD. He had grade 4 [id number] disease the entire medial compartment as well as the patellofemoral compartment some spotty changes in the lateral side. He had a fixed varus deformity to his knee. Large knee joint effusion. Fluids 1800 cc Specimens Right knee sent for pathology. Drains None. Anesthesia Type Spinal MAC Complications none Disposition Accompanied Patient To Recovery: No Disposition: Recovery Room Indications Patient is a 75-year-old gentleman is had a long history of bilateral knee pain and discomfort. Day he underwent a left knee replacement elsewhere which really has not done well for unclear reasons. We need to really maximize his conservative care but he continued be markedly limited by his knee pain that got worse despite all conservative measures. Despite his less than ideal response to left knee arthroplasty, the patient strongly desired to proceed with right knee replacement. He was fully aware this may not be any better than his left knee. Of note, the patient was concerned about the metal issue and therefore we used the [employer] zirconium knee to take any of medical issues out of his knee replacement result. Description of Procedure Operative implants consist of: 1. [employer] zirconium size 5 right posterior stabilized journey 2 femoral component. 2. [employer] size 5 right tibial tray. 3. 13 mm posterior stabilized polyethylene insert. 4. 32 x 9 all polypatella. Patient was taken to the operating identified and placed on the operating table supine position but all contact areas were properly padded. IV antibiotics tried by anesthesia team. A spinal anesthetic and abductor canal block had been provided in the holding area. Bridges catheter was placed in sterile fashion. A right thigh turn was then placed in the right lower extremity was then prepped and draped in usual sterile fashion. The right leg was elevated exsanguinated with use of an Esmarch and turns placed at 3 mmHg. An anterior approach to the right knee was then performed to longitudinal incision centered over the patella. Sharp dissection was carried through subcutaneous tissue down to the extensor mechanism. A medial parapatellar arthrotomy incision was made. Some subperiosteal dissection was carried out medially. The fat pad was resected from each patella tendon. The lateral patellofemoral ligament was released. The patella was subluxated laterally and the knee was flexed. The osteophytes were taken off the distal femur. The ACL and PCL were then released in the distal femur the tibia subluxated anteriorly. The external tibial alignment jig was then placed in the interface the tibia and adjusted 8 mm medially. Proximal tibial cut was made to remove millimeters of bone from the most deficient aspect of the medial tibial plateau. This did take a fairly large piece off laterally. The tibia was sized to a size 5. Attention drawn the femur. The distal femur was then with a sharp drop with intramedullary canal was suction. A right 5 degree valgus cutting guide was placed. Distal femoral cutting block was pinned in place and then adjusted to take an additional 2 mm of bone off distal femur. The femur cut was made. The femur was then sized and was sized to a size 5. The AP cutting block was pinned parallel to the epicondylar axis which was 5 degrees of external rotation. Anterior cut, anterior cord, posterior cut, posterior chamfer, and anterior chamfer cuts were made. The knee was then flexed. The remnants of the medial lateral menisci were excised. The osteophytes were taken off the posterior aspect of the femur. The trial femoral component was placed. The trochlear cutting guide device was placed in the notch was created for the polyethylene insert. The trochlear component was then placed. The knee was then trialed and a 30 mm insert fit most appropriately. Attention drawn the patella. Nipride the patella was cleaned of all soft tissues. Patella thickness measured 24 mm in thickness was cut down to 14. Was sized to a size 32 patella. Locals were drilled for 32 pat radha. The lateral osteophyte is moved. Patella button was placed. Knee was taken through range of motion patella tracked nicely with no thumbs test. Attention drawn to placing permanent components. All trial components were removed. Bone plug was placed in the distal femur limit blood loss. A double batch [place] G cement was mixed. A [employer]hew size size 5 right posterior stabilized femoral component, a size 5 tibial tray, a 13 mm polyethylene insert, and a 32 x 9 all polypatella were then cemented in place. The knee was brought out in full extension total cement hardened. Final cement check was then performed. The pericapsular tissues were injected with total 100 cc of combination of 20 cc of Exparel, 30 cc normal saline, 50 cc of quarter percent Marcaine with epinephrine. Patient did receive 1 g tranexamic acid. The tech was then let down for final turn time 69 minutes. Hemostasis assured use electrocautery. The extensor mechanism closed with combination 1 PDS suture and #1 Vicryl suture in [id number] fashion. The extensor mechanism checked found to be intact with the subcutaneous tissue then closed with 2 Dexon suture in a buried interrupted fashion skin was closed skin shania. Leg was then cleaned dried a sterile dressing of Xeroform, 4 x 4's, sterile cast padding, Santhosh bandage were applied. Patient then transferred to the recovery room in stable condition. Patient tolerated procedure well and there were no complications. Ricco Corona, my physician child and youth program assistant, was present for the entire procedure. His assistance was essential and required for appropriate patient positioning, prepping and draping, surgical exposure, performing the technical details of the operation, placement the implants, closure of the wound, and placement of the sterile bandage. I attest to the content of the Intraoperative Record and any orders documented therein. Any exceptions are noted below.
[2020-09-16] MEDS: carvediloL 25 MG TAB PO SCH (19:32)
[2020-09-16] MEDS: DOXAZosin MESYLATE TAB 2 MG TAB PO SCH (19:33)
[2020-09-16] MEDS: VALSARTAN 80 MG TAB PO SCH (19:33)
[2020-09-16] MEDS: guaiFENesin 600 MG TABCR PO SCH (20:49)
[2020-09-16] MEDS: DOCUSATE SODIUM 100 MG CAP PO SCH (20:50)
[2020-09-16] MEDS: ASPIRIN 81 MG ECTAB PO SCH (20:50)
[2020-09-16] MEDS: CALCIUM 600MG + VIT D 400 IU TAB PO SCH (20:50)
[2020-09-16] MEDS: SENNA 8.6 MG TAB PO SCH (20:51)
[2020-09-16] MEDS ORDERED: LEVALBUTEROL HCL 1.25 MG/3 ML NEB INH PRN (21:00)
[2020-09-16] MEDS ORDERED: HYDROmorphone INJ 0.5 MG/0.5 ML SYR IV STA (21:19)
[2020-09-16] MEDS: traMADol HCL 50 MG TABLET PO PRN (21:19)
[2020-09-16] MEDS ORDERED: hydrALAZINE HCL 20 MG/ML VIAL IV STA (21:19)
--- NOTE | 2020-09-16 21:33 | Hospitalist Consultation ---
Date of Consultation September 16, 2020 Assessment & Plan (1) Hypertension: Demond Connor is a 75-year-old male with a past medical history of difficult to control hypertension,, and chronic knee pain COPD, sleep apnea, type 2 diabetes mellitus who presented to the hospital for scheduled total right knee replacement. hypertensive urgency. Medical service has been consulted for the management of postoperative Hypertensive urgency Postop blood pressure of 229/111. Manual recheck 201/92 Patient took doxazosin, amlodipine, carvedilol, and torsemide this morning prior to surgery Patient postop from total right knee replacement, uncomplicated, with 1800 cc of fluid in, 50 cc of blood loss, 500 cc of subsequent urine output Received evening doses of carvedilol, doxazosin, valsartan at approximately 1930, 2 hours prior to assessment Asymptomatic at bedside, no headache, chest pain, lightheadedness, dizziness, visual changes, numbness, tingling, focal weakness Patient reports 5-6/10 pain at his operative site, which is been at worst 78/10 He has a history of difficult to control hypertension which was dramatically improved on spironolactone but which had to be stopped due to breast hypertrophy and pain. He has been hypokalemic in the past, history is suspicious for karla mitra hyperaldosteronism. Heart rate 56. Hydralazine 5 mg IV x1, 5 mg every 4 hours as needed for BP greater than 180 diastolic BP greater than 100, will to lower blood pressure no more than 20% at initial dose Pain control, additional one-time 0.25 mg hydromorphone given Recheck blood pressure in 1 hour, additional treatment per blood pressure at that time Patient reports he has had a renal artery ultrasound which he believes was normal in the past. Low suspicion for FREDIS at this time To new aspirin 81 mg p.o. twice daily Continue Tylenol and tramadol for routine pain control COPD BiPAP/CPAP as needed nightly Surgical and remaining perioperative management per primary team. (2) Chronic obstructive pulmonary disease: (3) GERD (gastroesophageal reflux disease): (4) Bilateral carotid bruits: (5) Painful total knee replacement, left: (6) Right knee DJD: (7) Type 2 diabetes mellitus: (8) Sleep apnea: Supervising Physician Co-Signing Physician Notes Attending addendum: I have physically seen this patient, have supervised the medical residents activities, and agree with the H&P unless as otherwise noted. Assessment and Plan: Elevated blood pressure- Blood pressure immediately postoperatively was 229/111, with follow-up 201/92. Patient is just received his evening medications of carvedilol, doxazosin and valsartan. We will place on hydralazine 10 mg IV every 4 hours as needed systolic blood pressure above 160. Ensure adequate pain control. Monitor volume input of IV fluids closely. Further adjustments as blood pressure is monitored. Remaining orders and notations as noted. We will follow during hospital stay History of Present Illness Attending Physician: Demond Oro MD Demond Connor is a 75-year-old male hospitalized for scheduled right knee replacement. Medical service has been consulted for postop hypertensive urgency. Geeta reports that he has difficult to control hypertension at baseline. He has been on multiple medications, the only one that is worked very well with spironolactone but he had the development of tender, swollen breast tissue causing it to be stopped approximately 6 months ago. He reports normal blood pressures in the 130s rarely 140s on his current regimen of amlodipine, carvedilol, doxazosin, torsemide, and valsartan. He took his amlodipine, carvedilol, and doxazosin this morning. He received his carvedilol, doxazosin, and valsartan at about 7:30 PM postoperatively. He denies headache, vision change, focal weakness, sensory change, chest pain, chest pressure, palpitations, shortness of breath, difficulty breathing, lightheadedness, dizziness at time of assessment. He is having 5-6 sometimes 78 out of 10 pain at his right knee in his postop site, but otherwise feels well. Medical history: Reviewed Medications: Reviewed, hypertensive medicines as above Allergies: Cannot take spironolactone due to breast hypertrophy and pain. Nausea to codeine and morphine. Surgical history: Reviewed Social history: Denies tobacco, alcohol, and recreational drug use. Dependently ambulatory, denies sick contacts and had a Covid negative test preoperatively. CODE STATUS full code Allergies Allergy/AdvReac Type Severity Reaction Status Date / Time morphine Allergy Mild n/v Verified 09/16/20 10:41 Iodinated Contrast Media AdvReac Intermediate elevated Verified 09/16/20 10:41 creatinine codeine AdvReac Mild NAUSEA Verified 09/16/20 10:41 erythromycin base AdvReac Unknown GI UPSET Verified 09/16/20 10:41 meperidine AdvReac Unknown gi upset Verified 09/01/20 15:59 Home Medications Home Medications Medication Instructions Recorded Confirmed Type ascorbate calcium (vitamin C) 500 500 mg PO QAM 07/05/19 09/16/20 History mg tablet aspirin 81 mg tablet 81 mg PO QAM #30 tab 08/06/19 09/16/20 History fexofenadine 180 mg tablet 180 mg PO QAM tab 08/06/19 09/16/20 History guaifenesin 600 mg tablet, 600 mg PO Q12H tab 08/06/19 09/16/20 History extended release 12 hr nystatin 500,000 unit tablet 500,000 units PO TID tab 08/06/19 09/16/20 History multivitamin 1 tab PO QAM 11/27/19 09/16/20 History carvedilol 25 mg tablet 25 mg PO BID #180 tab 01/16/20 09/16/20 Rx valsartan 160 mg tablet 160 mg PO BID #180 tab 01/16/20 09/16/20 Rx calcium citrate 315 mg 1 tab PO BID #60 tab 02/13/20 09/16/20 Rx calcium-vitamin D3 6.25 mcg (250 unit) tablet doxazosin 2 mg tablet 2 mg PO BID #180 tab 05/19/20 09/16/20 Rx metformin 500 mg tablet 500 mg PO BID #180 tab 05/19/20 09/16/20 Rx pantoprazole 40 mg tablet,delayed 40 mg PO QAM tab 06/01/20 09/16/20 History release cyclosporine 0.05 % eye drops in a 1 drops OP BID #30 ea 06/10/20 09/16/20 Rx dropperette antiarthritic combination no.2 900 900 mg PO QAM tab 07/07/20 09/16/20 History mg tablet ibuprofen 200 mg tablet 600 mg PO QAM tab 07/07/20 09/16/20 History omega-3 fatty acids 1,000 mg 1,000 mg PO QAM 07/07/20 09/16/20 History capsule levalbuterol HCl 1.25 mg/3 mL 1.25 mg INH BID #4 box 07/23/20 09/16/20 Rx solution for nebulization amlodipine 5 mg PO QAM 08/14/20 09/16/20 History torsemide 20 mg PO QAM 08/14/20 09/16/20 History vitamin B complex [Super B Complex] 1 cap PO QAM 08/14/20 09/16/20 History coenzyme Q10 100 mg tablet 100 mg PO QAM tab 08/19/20 09/16/20 History duloxetine 30 mg capsule,delayed 30 mg PO QAM #30 cap 08/31/20 09/16/20 Rx release sprinkle acetaminophen [Tylenol Extra 1,000 mg PO Q6H PRN 09/16/20 09/16/20 History Strength] alprazolam [Xanax] 0.5 mg PO QPM 09/16/20 09/16/20 History Patient History Medical History Acute and chronic respiratory failure with hypoxia Allergic rhinitis Asthma Chronic obstructive pulmonary disease Degenerative joint disease Diabetes Diverticulosis of colon Esophageal spasm Generalized anxiety disorder GERD (gastroesophageal reflux disease) Gynecomastia, male Hypertension Migraine headache Obesity Sleep apnea Surgical History H/O colonoscopy H/O rotator cuff surgery H/O sinus surgery History of carpal tunnel release of both wrists History of esophagogastroduodenoscopy (EGD) History of left knee replacement S/P trigger finger release Family History Sister Diabetes Hypertension Brother Hypertension Mother Hypertension Myocardial infarction Heart disease Stroke Father Hypertension Myocardial infarction Stroke Denies family history of Ovarian cancer Prostate cancer Breast cancer Colorectal cancer Social History Smoking Status: Former smoker Smoking End Date: Quit > 60yrs ago; Second Hand Exposure: No; Do You Dip or Chew Tobacco: No; Tobacco Cessation Education Requested by Patient: No Hx Alcohol Use: Yes Alcohol type: beer Hx Substance Use: No Preferred Language: Maltese Communication Ability: Effective Visual Impairment: No Limitations Hearing Ability: Hard of Hearing Landscape Crew Leader Required: No Beliefs That Will Affect Care: None marital status: Current Living Situation: Spouse current occupational status: retired Other Information That Helps Us Care for You: No Feels Safe at Home: Yes Safety Concerns: Feels Safe At This Time Childhood Exposure to Second-Hand Smoke: No Dental Care, Regularly: No Physical Activity Frequency: Daily Seatbelt Use: always Sunscreen Use: No Assistive Devices: Walker Review of Systems Review of Systems: All systems reviewed & are unremarkable except as noted in HPI & below Physical Exam Physical Exam: General: A&Ox3. NAD. Cooperative. HEENT: Atraumatic, normocephalic. Pulm: CTAB A&P. -wheezes, -rales, -rhonchi. Symmetrical chest rise. No increase work of breathing. No respiratory distress. Cardiac: RRR, -mrg. Radial pulses intact and symmetrical. Abdominal: Nontender, nondistended, soft. BS present. CRANIAL NERVES: II: Pupils reactive, no VF cuts III, IV, : EOM intact, no gaze preference or deviation, no nystagmus. V: normal sensation in V1, V2, and V3 segments bilaterally VII: no asymmetry, no nasolabial fold flattening VIII: normal hearing to speech IX, X: normal palatal elevation, no uvular deviation XI: 5/5 head turn XII: midline tongue protrusion MOTOR: RUE: Not tested, knee and postsurgical wrap. Sensation in toes intact, proprioception to hallux intact, PT pulse intact. LUE: 5/5 Shoulder internal rotation, external rotation, flexion, extension, abduction, adduction 5/5 Elbow flexion/extension, wrist flexion/extension 5/5 miller helper distillery strength, finger flexion/extension, interosseus RLE: 5/5 to hip flexion/extension, knee flexion/extension, ankle dorsiflexion/plantarflexion LLE: 5/5 to hip flexion/extension, knee flexion/extension, ankle dorsiflexion/plantarflexion SENSORY: Normal to touch in upper &lower extremities without deficit or asymmetry Results & Data Results & Data ([facility]) Vital Signs (Past 12 Hours) Vital Signs Temp Pulse Pulse Pulse Pulse Resp BP 09/16/20 20:10 36.4 C L 56 L 18 09/16/20 19:15 36.5 C 53 L 16 09/16/20 18:10 36.7 C 55 L 18 09/16/20 17:37 36.4 C L 50 L 18 09/16/20 17:10 36.4 C L 52 L 16 09/16/20 16:45 52 L 14 09/16/20 16:30 48 L 15 09/16/20 16:20 36.3 C L 50 L 17 09/16/20 16:10 52 L 18 09/16/20 16:00 51 L 13 09/16/20 15:50 53 L 15 09/16/20 15:41 36.5 C 52 L 16 09/16/20 11:25 60 18 09/16/20 10:53 36.8 C 61 20 168/97 H BP Pulse Ox 09/16/20 20:10 229/111 H 97 09/16/20 19:15 207/102 H 93 09/16/20 18:10 170/83 H 94 09/16/20 17:37 180/85 H 95 09/16/20 17:10 162/83 H 94 09/16/20 16:45 174/85 H 97 09/16/20 16:30 168/84 H 97 09/16/20 16:20 171/88 H 96 09/16/20 16:10 161/86 H 95 09/16/20 16:00 156/89 H 96 09/16/20 15:50 148/77 H 98 09/16/20 15:41 146/76 H 99 09/16/20 11:25 182/95 H 96 09/16/20 10:53 98 Resident Activity Tracking Resident Involvement: Resident Care Provided Care Provided: Adult Hospital Medicine
[2020-09-16] MEDS: ceFAZolin 2000MG 2,000 MG/15 ML SYR IV SCH (21:43)
[2020-09-16] MEDS: ACETAMINOPHEN 500 MG TAB PO SCH (21:44)
[2020-09-16] MEDS ORDERED: TRANEXAMIC ACID / 0.7% NACL 1,000 MG/100 ML BAG IV SCH (22:00)
[2020-09-17] MEDS: KETOROLAC TROMETHAMINE 15 MG/ML VIAL IV SCH ×4 (00:01→17:25)
[2020-09-17] MEDS: ALPRAZolam 0.5 MG TABLET PO SCH ×2 (00:01→22:15)
[2020-09-17] MEDS ORDERED: hydrALAZINE HCL 20 MG/ML VIAL IV PRN (01:30)
[2020-09-17] MEDS: SODIUM CHLORIDE 0.9% 1000ML 1,000 ML IV SCH (03:49)
[2020-09-17] MEDS: ACETAMINOPHEN 500 MG TAB PO SCH ×3 (06:08→22:14)
[2020-09-17] MEDS: ceFAZolin 2000MG 2,000 MG/15 ML SYR IV SCH (06:08)
[2020-09-17] MEDS: traMADol HCL 50 MG TABLET PO PRN ×2 (06:10→12:23)
--- NOTE | 2020-09-17 07:24 | Orthopedic Progress Note ---
Date of Service September 17, 2020 Assessment & Plan (1) Status post total right knee replacement: Demond will continue SCDs, RAMON stockings, and aspirin for DVT prophylaxis Physical therapy will continue visiting with him He will likely be discharged to home health tomorrow He will remain weight bearing as tolerated Will continue to monitor his pain levels in the meantime Admission and Anticipated Discharge Date Admission Date: September 16, 2020 Rosa Lagos was seen and examined at bedside today. He is one day s/p right total knee arthroplasty. States his pain has been mostly well controlled. He was walking in the hallways earlier this morning. He denies any shortness of breath or chest pain. He has no new complaints today. Review of Systems Constitutional: no fever, no chills and no problem reported Eyes: as per Subjective / HPI; no problem reported Ear, Nose, Mouth, Throat: as per Subjective / HPI; no problem reported Respiratory: as per Subjective / HPI; no problem reported Cardiovascular: no edema and no problem reported Gastrointestinal: no nausea, no vomiting and no problem reported Genitourinary: no problem reported Musculoskeletal: as per Subjective / HPI Integumentary: as per Subjective / HPI; no problem reported Neurologic: no tingling, no paresthesia and no problem reported Psychiatric: no problem reported Endocrine: as per Subjective / HPI Hematologic / Lymphatic: as per Subjective / HPI Allergy / Immunological: no problem reported Physical Exam Musculoskeletal: Demond was sitting upright in his chair upon arrival today. No acute distress. A+Ox3 Vitals appear stable Right lower extremity: Full range of motion with plantarflexion and dorsiflexion of his foot. He is able to perform a straight leg raise. Dressings were not removed. Dressings appear clean and dry with no evidence of discharge. Neurovascularly intact. Results & Data ([facility]) Vital Signs (Past 12 Hours) Vital Signs Temp Pulse Pulse Resp BP Pulse Ox 09/17/20 03:30 36.2 C L 67 18 155/79 H 91 09/17/20 00:00 36.7 C 63 18 197/98 H 94 09/16/20 22:44 212/113 H 09/16/20 21:46 58 L 204/108 H 95 09/16/20 20:10 36.4 C L 56 L 18 229/111 H 97 09/16/20 19:15 36.5 C 53 L 16 207/102 H 93 PG Care Time/CCT Total # of Minutes Spent Total Time Spent with Patient: Total time spent is greater than 50% in coordin ation of care (as documented) at patient's floor/unit and/or counseling patient: Coding Level of Care Code None Diagnoses Status post total right knee replacement Z96.651
[2020-09-17 07:35] LABS: Hematocrit (blood only) 36.2 % (42-52); Hemoglobin 12.5 g/dL (14.0-18.0); Mean Corpuscular Hemoglobin 31.2 pg (25-34); Mean Corpuscular Hgb Conc 34.5 g/dL (32-36); Mean Corpuscular Volume 90.3 fL (80-100); Mean Platelet Volume 10.4 fL (7.4-10.4); Platelet Count 205 K/uL (130-400); RDW Coefficient of Variation 12.2 % (11.5-14.5); RDW Standard Deviation 40.2 fL (36.4-46.3); Red Blood Count 4.01 M/uL (4.7-6.1)
[2020-09-17 07:39] LABS: BUN Creatinine Ratio 13.2 (10-20); Calcium 8.5 mg/dl (8.5-10.1); Creatinine Clr Calc Pharmacy 75.9 ml/min; Est GFR (African American) 84.4; Est GFR (Non-African American) 72.8; Potassium 3.9 mmol/L (3.5-5.1)
[2020-09-17] MEDS: LEVALBUTEROL HCL 1.25 MG/3 ML NEB INH SCH ×4 (08:00→19:38)
[2020-09-17] MEDS: guaiFENesin 600 MG TABCR PO SCH ×2 (08:18→20:01)
[2020-09-17] MEDS: carvediloL 25 MG TAB PO SCH ×2 (08:18→20:01)
[2020-09-17] MEDS: TORSEMIDE 20 MG TAB PO SCH (08:18)
[2020-09-17] MEDS: cycloSPORINE (RESTASIS) OP SCH ×2 (08:18→20:02)
[2020-09-17] MEDS: VITAMIN B COMPLEX TAB PO SCH (08:18)
[2020-09-17] MEDS: CALCIUM 600MG + VIT D 400 IU TAB PO SCH ×2 (08:18→20:01)
[2020-09-17] MEDS: ASPIRIN 81 MG ECTAB PO SCH ×2 (08:18→20:01)
[2020-09-17] MEDS: FEXOFENADINE HCL 180 MG TAB PO SCH (08:18)
[2020-09-17] MEDS: MULTIVITAMIN TAB PO SCH (08:18)
[2020-09-17] MEDS: ASCORBIC ACID 500 MG TAB PO SCH ×2 (08:18→17:26)
[2020-09-17] MEDS: VALSARTAN 80 MG TAB PO SCH ×2 (08:18→20:01)
[2020-09-17] MEDS: FERROUS GLUCONATE 324 MG TAB PO SCH ×2 (08:19→17:26)
[2020-09-17] MEDS: PANTOprazole 40 MG TAB PO SCH (08:19)
[2020-09-17] MEDS: DOCUSATE SODIUM 100 MG CAP PO SCH ×2 (08:19→20:01)
[2020-09-17] MEDS: amLODIPine BESYLATE 5 MG TAB PO SCH (08:19)
[2020-09-17] MEDS: DULoxetine HCL 30 MG CAP PO SCH (08:19)
[2020-09-17] MEDS: DOXAZosin MESYLATE TAB 2 MG TAB PO SCH ×2 (08:19→20:01)
--- NOTE | 2020-09-17 08:30 | Hospitalist Progress Note ---
Date of Service September 17, 2020 Assessment & Plan (1) Degenerative joint disease: (2) Status post total right knee replacement: - Pain management, bowel regimen and DVT ppx per the primary team - PT/OT consults - Hgb stable at 12.5 compared to 13.5 at baseline. Patient may benefit from o ral iron supplementation as outpatient. (3) Hypertension: - After surgery initially had hypertensive urgency, now improved to 149/81 - continue home medications including amlodipine 5 mg qam, carvedilol 25 mg BID, doxazosin 2 mg BID, and valsartan 160 mg BID. Torsemide 20 mg QAM to resume this morning. - BP improved at 149/81 to 135/77 this morning (4) Bilateral carotid bruits: - Noted (5) Chronic obstructive pulmonary disease: - Cont cpap HS - Continue inhalers (6) Type 2 diabetes mellitus: - Resume metformin 500 mg BID - Continue pharmacy glycemic consult - Monitor glucose with bmp/ accuchecks achs - HH/DM diet while admited (7) GERD (gastroesophageal reflux disease): - Cont PPI (8) Obesity: - BMI 32.9, diet and exercise to be encouraged at this point DVT ppx: asa 81 mg BID, ambulatory CODE: Full Dispo: From home Thank you for involving us in the care of Mr. Connor. Please do not hesitate to call with questions or concerns. At this time medicine service will sign off. Admission and Anticipated Discharge Date Admission Date: September 16, 2020 Subjective The patient was seen and examined this morning. Patient reports feeling well. His blood pressure is much improved this morning, 135/77 with reinitiation of all his home medications. He denies any lightheadedness or dizziness, chest pain, shortness of breath. He has been up and ambulating about the room without any difficulty. R knee pain s/p surgery is minimal. He is tolerating oral diet without issues, and feels like he could have a BM soon. Denies any issues with urination although reports in the past occasionally has had difficulty with flow, denies any currently. Review of Systems Review of Systems: Constitutional: No fever, sweats or chills Eyes: No diplopia, no worsening or blurred vision ENT: normal hearing, no trouble swallowing Respiratory: No cough, sputum, dyspnea at rest or on exertion Cardiovascular: No chest pain, tightness or palpitations Abdomen: No pain, nausea, vomiting, diarrhea or constipation Musculoskeletal: R knee minimal joint pain, no calf pain, swelling Neurologic: No weakness, numbness/tingling, or balance problems Psychiatric: No anxiety or depression Skin: No rash or itch Physical Exam Physical Exam: General: awake, alert, no apparent distress, + obese Head: Normocephalic, atraumatic ENT: PERRL, EOMI, no pharyngeal exudate, mucous membranes moist Chest: On room air, + barrel chested, diminished breath sounds throughout secondary to COPD, no wheeze rales or rhonchi Cardiac: Regular rate and rhythm, no murmur, no JVD, normal peripheral pulses, good capillary refill Abdominal: NABS x 4 quadrants, soft, nondistended, nontender to palpation, no rebound or guarding Extremities: Right knee wrapped in Santhosh, able to wiggle toes and move ankle, sensation to light touch distally intact, normal inspection, no peripheral edema or erythema, calfs nontender to palpation Psych: Normal mood and affect Neuro: AAO x 3, strength intact bilaterally and rated 5/5, no motor deficits, speech is clear, no peripheral sensory deficits Results & Data Results & Data ([facility]) Vital Signs (Past 12 Hours) Vital Signs Temp Pulse Pulse Resp BP Pulse Ox 09/17/20 08:00 71 18 92 09/17/20 07:18 36.8 C 71 16 149/81 H 96 09/17/20 03:30 36.2 C L 67 18 155/79 H 91 09/17/20 00:00 36.7 C 63 18 197/98 H 94 09/16/20 22:44 212/113 H 09/16/20 21:46 58 L 204/108 H 95 PG Care Time/CCT Total # of Minutes Spent Total Time Spent with Patient: Total time spent is greater than 50% in coordination of care (as documented) at patient's floor/unit and/or counseling patient: Coding Level of Care Code 16979 Inpt Consult Level 3 Diagnoses Degenerative joint disease M19.90 Status post total right knee replacement Z96.651 Hypertension I10 Bilateral carotid bruits R09.89 Chronic obstructive pulmonary disease J44.9 Type 2 diabetes mellitus E11.9 GERD (gastroesophageal reflux disease) K21.9 Obesity E66.9 Body mass index: BMI 33.0-33.9 (1) Obesity Body mass index: BMI 33.0-33.9
--- NOTE | 2020-09-17 08:41 | Pharmacy Report ---
Pharmacy Glycemic Short Note 2 - Date of Service September 17, 2020 - Glycemic Short BSG Results (Last 24 hours): 09/16/20 09/16/20 09/16/20 11:15 16:02 17:23 Glucose POC Glucose 148 H 114 H 112 H 09/16/20 09/17/20 09/17/20 20:24 06:29 08:26 Glucose 154 H POC Glucose 125 H 203 H OUTPATIENT ANTIDIABETIC REGIMEN: * Metformin 500mg PO BIDM * A1c = 7% on 08/18/20 ASSESSMENT: * 75 yo T2DM male s/p POD #1 R TKA * Pt with excellent outpatient control per recent A1c. No changes needed to outpatient regimen on DC * Outpatient antidiabetic med metformin on hold for admission - using NovoLog in its place. * All BSGs in goal range with current orders. No steroids etc ordered to complicated glycemic control. * Pt tolerating PO and renal function WNL - will resume outpatient metformin this evening. Will DC CR on NovoLog when metformin resumes. PLAN FOR INPATIENT GLYCEMIC CONTROL: * Outpatient oral diabetes medications * Resume metformin 500mg PO BIDM this evening * Basal insulin * Not needed * Bolus insulin * NovoLog per scale ACHS or Q6hrs while NPO * Goal Range: Low 110 mg/dL - High 140 mg/dL * Correction Factor: 25 mg/dL/unit * Nutritional / Prandial insulin per carb ratio of 1 unit per 12 grams CHO consumed- will DC CR when metformin resumes
[2020-09-17] MEDS: INSULIN ASPART 100 UNITS/ML 3 ML PEN SC SCH ×4 (08:51→21:08)
[2020-09-17] MEDS ORDERED: MULTIVITAMIN TAB PO SCH (09:00)
[2020-09-17] MEDS: MAGNESIUM HYDROXIDE SUSP 30 ML UDC PO PRN ×2 (12:24→20:05)
[2020-09-17] MEDS: metFORMIN HCL 500 MG TAB PO SCH (17:26)
[2020-09-17] MEDS: SENNA 8.6 MG TAB PO SCH (20:01)
--- NOTE | 2020-09-17 21:41 | Billing Data ---
Date of Service September 17, 2020 Coding Level of Care Code 60252 Inpt Consult Level 3
[2020-09-18] MEDS: KETOROLAC TROMETHAMINE 15 MG/ML VIAL IV SCH ×2 (00:13→06:24)
[2020-09-18] MEDS: ACETAMINOPHEN 500 MG TAB PO SCH (06:02)
[2020-09-18] MEDS: INSULIN ASPART 100 UNITS/ML 3 ML PEN SC SCH (07:52)
[2020-09-18] MEDS: DULoxetine HCL 30 MG CAP PO SCH (07:53)
[2020-09-18] MEDS: PANTOprazole 40 MG TAB PO SCH (07:53)
[2020-09-18] MEDS: FEXOFENADINE HCL 180 MG TAB PO SCH (07:53)
[2020-09-18] MEDS: metFORMIN HCL 500 MG TAB PO SCH (07:53)
[2020-09-18] MEDS: MULTIVITAMIN TAB PO SCH (07:53)
[2020-09-18] MEDS: amLODIPine BESYLATE 5 MG TAB PO SCH (07:53)
[2020-09-18] MEDS: FERROUS GLUCONATE 324 MG TAB PO SCH (07:54)
[2020-09-18] MEDS: ASCORBIC ACID 500 MG TAB PO SCH (07:54)
[2020-09-18] MEDS: TORSEMIDE 20 MG TAB PO SCH (07:54)
[2020-09-18] MEDS: VITAMIN B COMPLEX TAB PO SCH (07:54)
--- NOTE | 2020-09-18 07:54 | Progress Notes ---
DATE: 09/18/2020 SUBJECTIVE: A 75-year-old gentleman postop day 2 from a right knee replacement. He is doing pretty well. Pain seems to be a little better controlled today. No chest pain or shortness of breath. Not feeling dizzy or lightheaded. OBJECTIVE: VITAL SIGNS: Temperature 36.8. Vital signs stable. GENERAL: The patient is a pleasant elderly male. He is walking around in his bathroom this morning with a walker, doing pretty well. EXTREMITIES: Examination of the right leg reveals the dressing to be clean, dry and intact. Mild swelling. Calf is soft and supple. He is neurologically intact. ASSESSMENT: A 75-year-old gentleman postop day 2 from a right knee replacement, doing pretty well. Pain is controlled. He is neurologically intact. PLAN: 1. DVT prophylaxis including thigh-high TEDs, SCDs, and aspirin twice a day. 2. PT/OT. Weight bear as tolerated. Right total knee protocol. 3. Pain control, doing well with current pain regimen. 4. Disposition: Plan to discharge to home with some home health likely later today.
[2020-09-18] MEDS: ASPIRIN 81 MG ECTAB PO SCH (07:55)
[2020-09-18] MEDS: DOCUSATE SODIUM 100 MG CAP PO SCH (07:55)
[2020-09-18] MEDS: VALSARTAN 80 MG TAB PO SCH (07:55)
[2020-09-18] MEDS: carvediloL 25 MG TAB PO SCH (07:55)
[2020-09-18] MEDS: guaiFENesin 600 MG TABCR PO SCH (07:56)
[2020-09-18] MEDS: DOXAZosin MESYLATE TAB 2 MG TAB PO SCH (07:56)
[2020-09-18] MEDS: CALCIUM 600MG + VIT D 400 IU TAB PO SCH (07:56)
[2020-09-18] MEDS: cycloSPORINE (RESTASIS) OP SCH (07:58)
[2020-09-18] MEDS: LEVALBUTEROL HCL 1.25 MG/3 ML NEB INH SCH ×2 (08:12→11:20)
--- NOTE | 2020-09-21 15:48 | Discharge Summary ---
Date of Service September 21, 2020 Admission HPI Per Admitting Provider Documented in the H & P Admission Exam (Per Admitting) Constitutional Documented in the H & P Discharge Data Consultations 09/16/20 17:09 Consult Case Management - Discharge Planning Routine 09/16/20 20:33 Consult Hospitalist Routine Procedures Performed Operation Date: 09/16/20 12:45 Actual Procedures p Right Total Knee Replacement, Cemented(Right) - Demond Oro MD Hospital Course (1) Status post total right knee replacement: This patient is a 75 year old male admitted on 09/16/20 and underwent total knee arthroplasty. He tolerated the procedure well and there were no complications. Transferred to the PACU post op and later to the orthopedic floor for further care. He was given ancef for antibiotic prophylaxis. He was also given RAMON stockings, SCDs, and aspirin for DVT prophylaxis. Hemoglobin, hematocrit, and vital signs were monitored during his hospital stay and remained stable. Did not require any blood transfusions. There were no complications during his hospital stay. He was followed by the hospitalist service. By post op day #2 the patient was tolerating a diabetic diet, pain was reasonably controlled with oral pain medicine, and he was participating in physical therapy. On post op day #2 the patient was discharged home and set up with home health care. He was given printed discharge instructions including prescriptions for extra strength tylenol, aspirin, and tramadol. Continue physical therapy, weight bearing as tolerated. Continue RAMON stockings. Follow up approximately 2 weeks post op or sooner if there are problems or concerns. Coding Level of Care Code None Diagnoses Status post total right knee replacement Z96.651
== END 2020-09-18 11:43 | disposition home health service (06) ==
LOC: ASU 10:18 → 3E 10:18

== ENCOUNTER 2023-06-07 14:32 | Inpatient (IN) ==
--- NOTE | 2023-06-07 14:46 | ED Triage Note ---
Date of Service June 07, 2023 History of Present Illness This patient was briefly evaluated while in triage. An abbreviated physical exam was performed. 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 Abdomen mildly distended. Nontender to palpation. Initial orders for labs and / or imaging were placed and patient was placed in the waiting area until a bed is available. Please see further documentation for the full ED course.
[2023-06-07] MEDS ORDERED: ONDANSETRON INJ 2 MG/ML 2 ML VIAL ONE (15:13)
[2023-06-07 15:35] LABS: Hematocrit (blood only) 38.8 % (42.0-52.0); Hemoglobin 13.9 g/dl (14.0-18.0); Mean Corpuscular Hemoglobin 31.4 pg (25.0-34.0); Mean Corpuscular Hgb Conc 35.8 g/dL (32.0-36.0); Mean Corpuscular Volume 87.8 fL (80.0-100.0); Mean Platelet Volume 10.4 fL (9.4-12.4); Platelet Count 209 K/uL (130-400); RDW Coefficient of Variation 12.4 % (11.5-14.5); RDW Standard Deviation 39.5 fL (36.4-46.3); Red Blood Count 4.42 M/uL (4.70-6.10); White Blood Count 5.55 K/ul (4.8-10.8)
[2023-06-07 15:51] LABS: Alanine Aminotransferase 217 U/L (7-52); Albumin Level 4.1 gm/dl (3.4-5.0); Alkaline Phosphatase 360 U/L (34-104); Anion Gap 12 (3-11); Aspartate Aminotransferase 106 U/L (13-39); BUN Creatinine Ratio 13.9 (10-20); Bilirubin Direct 4.6 mg/dl (0-0.2); Blood Urea Nitrogen 15 mg/dl (6-23); Calcium 9.8 mg/dl (8.6-10.3); Carbon Dioxide 24 mmol/L (21-32); Chloride 95 mmol/L (98-107); Est GFR (African American) 75.8 ml/min; Est GFR (Non-African American) 65.4 ml/min; Glucose 138 mg/dl (70-99(Fasting)); Magnesium 1.4 mg/dl (1.7-2.4); Potassium 3.6 mmol/L (3.5-5.1); Sodium 131 mmol/L (136-145); Total Protein 7.7 gm/dl (6.0-8.3)
[2023-06-07 16:04] LABS: Basophils # (auto) 0.01 K/uL (0-0.2); Basophils % (auto) 0.2 %; Eosinophils # (auto) 0.04 K/uL (0-0.50); Eosinophils % (auto) 0.7 %; Immature Granulocytes # (auto) 0.04 K/uL (0.01-0.20); Immature Granulocytes % (auto) 0.7 %; Lymphocytes # (auto) 0.31 K/uL (1.2-3.4); Lymphocytes % (auto) 5.6 %; Monocytes # (auto) 0.04 K/uL (0.11-0.59); Monocytes % (auto) 0.7 %; Neutrophils # (auto) 5.11 K/uL (1.40-6.50); Neutrophils % (auto) 92.1 %; Toxic Vacuolation 2+
[2023-06-07] MEDS ORDERED: PIPERACILLIN/TAZOBACTAM 4.5 GM/120 ML BAG IV ONE (16:07)
--- NOTE | 2023-06-07 16:08 | XRay Report ---
XR chest 1V portable HISTORY: 77 years-old Male Sepsis COMPARISON: 07/13/2021 TECHNIQUE: AP view of the chest FINDINGS: Cardiac silhouette is enlarged. No pneumothorax, pleural effusion, airspace consolidation or pulmonar y edema. Degenerative changes of the shoulders and spine. IMPRESSION: No acute process. ACT 112: Negative or not required by law. The above report was generated using voice recognition software. It may contain grammatical, syntax o r spelling errors. Electronically signed by: Wilfred Gaspar M.D. 06/07/2023 4:06 PM
[2023-06-07] MEDS ORDERED: SODIUM CHLORIDE 0.9% 1000ML 2,000 ML IV ONE (16:09)
[2023-06-07] MEDS ORDERED: SODIUM CHLORIDE 0.9% 1000ML 500 ML IV ONE (16:09)
[2023-06-07 16:27] LABS: Appearance Urine Clear (Clear); Bacteria Urine Automated Negative (Negative); Blood Urine Negative (Negative); Color Urine Dark Yellow; Epithelial Cell Urine Auto 0-5 /lpf (0-5); Glucose Urine UA Negative (Negative); Ketones Urine Negative (Negative); Leukocyte Esterase Urine Negative (Negative); Nitrite Urine Negative (Negative); Protein Urine 2+ (Negative); RBC Urine Automated 0-4 /hpf (0-4); Specific Gravity Urine 1.009 (1.000-1.030); Urobilinogen Urine Negative (Negative); WBC Urine Automated 0 /hpf (0-5)
[2023-06-07 16:31] LABS: Bilirubin Urine 1+ (Negative)
[2023-06-07] MEDS ORDERED: ONDANSETRON INJ 2 MG/ML 2 ML VIAL IV STA (17:14)
[2023-06-07] MEDS ORDERED: KETOROLAC TROMETHAMINE 15 MG/ML VIAL IV STA (17:14)
--- NOTE | 2023-06-07 18:03 | Ultrasound Report ---
US gallbladder CLINICAL HISTORY: Right upper quadrant abdominal pain. COMPARISON STUDY: CT of the abdomen and pelvis March 18, 2019. MRCP June 25, 2019. 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 No additional hepatic lesions are identifi ed. There is moderate intrahepatic biliary ductal dilatation. There is marked dilatation of the commo n bile duct, measuring approximately 2 cm in caliber. No common bile duct calculi are identified alth ough the distal common bile duct is obscured. The gallbladder is moderately distended. Sonographic Mu rphy sign could not be assessed for in this patient. There is borderline gallbladder wall thickening. No pericholecystic fluid is noted. Pancreatic body is normal. Head and tail are partially obscured. Caliber of the pancreatic duct is at the upper limits of normal. There is no right hydronephrosis. IMPRESSION: 1. Marked extra and moderate intrahepatic biliary ductal dilatation. This raises possibility of a son ographically occult common bile duct calculus or mass. Correlation with obstructive liver function te sts is recommended. MRCP could be obtained for further evaluation. 2. Moderate gallbladder distention and borderline gallbladder wall thickening. No gallstones. No conv incing evidence for acute cholecystitis although a hepatobiliary scan could be obtained to exclude th is possibility. 3. Partially obscured pancreas. ACT 112: Negative or not required by law. Electronically signed by: Dannie Schultz M.D. 06/07/2023 6:01 PM
--- NOTE | 2023-06-07 18:05 | Emergency Department Note ---
History of Present Illness General Chief Complaint: Vomiting Stated Complaint: CHILLS,VOMITING Time Seen by Provider: 06/07/23 15:58 History of Present Illness Provider Complaint: abdominal pain Onset (ago): 3 day(s) Pain Consistency: intermittent Location: epigastric Radiation: back Severity: moderate Quality: + stabbing and + sharp Relieved By: + nothing Exacerbated By: + nothing Context: no foreign travel, no possible food poisoning, no sick contacts, no recent antibiotic use or no recent surgery/procedure Associated Symptoms: + nausea and + vomiting; no diarrhea, no fever, no chills, no constipation, no dysuria, no hematemesis, no melena, no hematuria, no syncope, no headache and no chest pain Home Medications Medication Instructions Recorded Confirmed Type ascorbate calcium (vitamin C) 500 500 mg PO QAM 07/05/19 06/07/23 History mg tablet fexofenadine 180 mg tablet 180 mg PO QAM 08/06/19 06/07/23 History guaifenesin 600 mg tablet, 600 mg PO Q12H 08/06/19 06/07/23 History extended release 12 hr multivitamin 1 tab PO QAM 11/27/19 06/07/23 History cyclosporine 0.05 % eye drops in a 1 drops ophthalmic (eye) BID #30 ea 06/10/20 06/07/23 Rx dropperette vitamin B complex 1 cap PO QAM 08/14/20 06/07/23 History coenzyme Q10 100 mg tablet 100 mg PO QAM 08/19/20 06/07/23 History antiarthritic combination no.2 900 900 mg PO BID 03/03/21 06/07/23 History mg tablet (glucosamine-chondroitin) aspirin 81 mg tablet,delayed 81 mg PO DAILY #30 tabs 02/10/22 06/07/23 Rx release nystatin 500,000 unit tablet 500,000 unit PO TID #270 tabs 03/18/22 06/07/23 Rx montelukast 10 mg tablet 10 mg PO QPM 10/13/22 06/07/23 History (Singulair) pantoprazole 40 mg tablet,delayed 40 mg PO DAILY 10/14/22 06/07/23 History release (Protonix) potassium chloride 20 mEq 20 meq PO DAILY #90 tabs 01/19/23 06/07/23 Rx tablet,extended release doxazosin 2 mg tablet 2 mg PO BID #180 tabs 02/08/23 06/07/23 Rx amlodipine 5 mg tablet 5 mg PO DAILY #90 tabs 02/16/23 06/07/23 Rx valsartan 160 mg tablet 160 mg PO BID #180 tabs 03/15/23 06/07/23 Rx carvedilol 25 mg tablet 25 mg PO BID #180 tabs 04/21/23 06/07/23 Rx blood-glucose meter (OneTouch #1 ea 04/24/23 04/24/23 Rx Verio Flex Start kit) blood sugar diagnostic (OneTouch #50 ea 04/27/23 Rx Verio test strips) lancets 30 gauge (OneTouch DelShopear #100 ea 04/27/23 Rx Plus Lancet) semaglutide 3 mg tablet (Rybelsus) 3 mg PO DAILY 30 days #30 tabs 05/16/23 06/07/23 Rx alprazolam 0.5 mg tablet (Xanax) 0.5 mg PO QPM #30 tabs 05/31/23 06/07/23 Rx budesonide-formoterol HFA 160 1 inh inhalation BID 06/07/23 06/07/23 History mcg-4.5 mcg/actuation aerosol inhaler (Symbicort) calcium citrate 250 mg 1 tab PO BID 06/07/23 06/07/23 History calcium-vitamin D3 5 mcg (200 unit) tablet carboxymethylcellulose sodium 0.5 1 drp ophthalmic (eye) DIRECTED 06/07/23 06/07/23 History % eye drops (Refresh Tears) PRN Dry Eyes cholecalciferol (vitamin D3) 25 25 mcg PO DAILY 06/07/23 06/07/23 History mcg (1,000 unit) capsule (Vitamin D3) metformin 500 mg tablet,extended 500 mg PO BID 06/07/23 06/07/23 History release 24 hr omega-3 fatty acids 1,000 mg 1,000 mg PO DAILY 06/07/23 06/07/23 History capsule sucralfate 1 gram tablet 1 g PO BID PRN Heartburn 06/07/23 06/07/23 History torsemide 20 mg tablet 10 mg PO QAM 06/07/23 06/07/23 History Allergies Allergy/AdvReac Type Severity Reaction Status Date / Time erythromycin base AdvReac Intermediate GI UPSET Verified 06/07/23 16:47 Iodinated Contrast Media AdvReac Intermediate elevated Verified 06/07/23 16:47 creatinine meperidine AdvReac Intermediate gi upset Verified 06/07/23 16:47 morphine AdvReac Intermediate n/v Verified 06/07/23 16:47 codeine AdvReac Mild NAUSEA Verified 06/07/23 16:47 Past Med/Surg History Medical History Acute and chronic respiratory failure with hypoxia 2017 22 influenza Allergic rhinitis Asthma Chronic obstructive pulmonary disease Follows with [facility] (Gonzalo Arizmendi) Degenerative joint disease Diabetes Diverticulosis of colon Esophageal spasm Generalized anxiety disorder GERD (gastroesophageal reflux disease) Gynecomastia, male Migraine headache hx Obesity Sensorineural hearing loss (SNHL) of left ear with restricted hearing of right ear Sinus pressure Sleep apnea c pap. Pt reports full compliance. Tennis elbow syndrome Tinnitus, bilateral Vertigo Surgical History H/O colonoscopy H/O rotator cuff surgery right and left H/O sinus surgery History of carpal tunnel release of both wrists History of esophagogastroduodenoscopy (EGD) History of left knee replacement History of right knee surgery S/P trigger finger release Status post right knee replacement Status post right partial knee replacement Family History Sister Diabetes Hypertension Brother Hypertension Mother Hypertension Myocardial infarction Heart disease Stroke Father Hypertension Myocardial infarction Stroke Denies family history of Ovarian cancer Prostate cancer Breast cancer Colorectal cancer Social History Smoking Status: Never smoker Tobacco Type: Cigarettes Age Started Using Tobacco: 9; Age Quit Using Tobacco: 16; packs per day: 1; Cigarettes Per Day: was social; Second Hand Exposure: Yes; Do You Dip or Chew Tobacco: No; Hx Alcohol Use: Yes Alcohol type: beer Alcohol Intake Frequency: Monthly or Less Alcohol Intake Frequency 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 How many Children do You have: 3 Feels Safe at Home: Yes Childhood Exposure to Second-Hand Smoke: No Diet: low carbohydrate and low salt caffeine: Yes (coffee daily, tea and soda three times a week ) Dental Care, Regularly: No Physical Activity Frequency: Does not Exercise Physical Activity Frequency Comment: active lifestyle Seatbelt Use: always Sunscreen Use: No Do you think of yourself as: straight/heterosexual Assistive Devices: Walker Physical Exam Vital Signs: Vital Signs - 24 hr 06/07/23 14:43 06/07/23 15:54 06/07/23 16:19 Temperature 37.2 C Temperature Source Oral Pulse Rate 95 H 84 80 Pulse Rate from Sp O2 Sensor Respiratory Rate 18 17 Respiratory Effort / Characteristics Non-Labored Sponta neous Respiratory Depth Normal Respiratory Patter n Regular Blood Pressure 122/69 Blood Pressure Jo Ann n 86 Pulse Oximetry 93 90 Oxygen Delivery Me thod Room Air Room Air Sepsis Recent Feve r Within 48 Hours No Sepsis New/Unexpla ined Change in Men darya Status No Sepsis Action Take n by Nursing No Action Required 06/07/23 16:15 06/07/23 16:20 06/07/23 16:30 Temperature Temperature Source Pulse Rate 80 80 Pulse Rate from Sp O2 Sensor 80 81 Respiratory Rate 24 23 Respiratory Effort / Characteristics Respiratory Depth Respiratory Patter n Blood Pressure 128/67 Blood Pressure Jo Ann n 84 Pulse Oximetry 91 91 Oxygen Delivery Me thod Sepsis Recent Feve r Within 48 Hours Sepsis New/Unexpla ined Change in Men darya Status Sepsis Action Take n by Nursing 06/07/23 16:30 06/07/23 16:40 06/07/23 16:50 Temperature Temperature Source Pulse Rate 78 77 76 Pulse Rate from Sp O2 Sensor 78 77 76 Respiratory Rate 23 21 22 Respiratory Effort / Characteristics Respiratory Depth Respiratory Patter n Blood Pressure Blood Pressure Jo Ann n Pulse Oximetry 92 91 91 Oxygen Delivery Me thod Sepsis Recent Feve r Within 48 Hours Sepsis New/Unexpla ined Change in Men darya Status Sepsis Action Take n by Nursing 06/07/23 17:00 06/07/23 17:00 06/07/23 17:10 Temperature Temperature Source Pulse Rate 74 73 Pulse Rate from Sp O2 Sensor 74 73 Respiratory Rate 24 22 Respiratory Effort / Characteristics Respiratory Depth Respiratory Patter n Blood Pressure 133/70 Blood Pressure Jo Ann n 84 Pulse Oximetry 93 91 Oxygen Delivery Me thod Sepsis Recent Feve r Within 48 Hours Sepsis New/Unexpla ined Change in Men darya Status Sepsis Action Take n by Nursing 06/07/23 17:20 06/07/23 18:39 06/07/23 18:39 Temperature Temperature Source Pulse Rate 74 70 Pulse Rate from Sp O2 Sensor 74 Respiratory Rate 18 14 Respiratory Effort / Characteristics Respiratory Depth Respiratory Patter n Blood Pressure 120/69 Blood Pressure Jo Ann n 86 Pulse Oximetry 92 Oxygen Delivery Me thod Sepsis Recent Feve r Within 48 Hours Sepsis New/Unexpla ined Change in Men darya Status Sepsis Action Take n by Nursing 06/07/23 18:40 Temperature Temperature Source Pulse Rate 71 Pulse Rate from Sp O2 Sensor Respiratory Rate 23 Respiratory Effort / Characteristics Respiratory Depth Respiratory Patter n Blood Pressure Blood Pressure Jo Ann n Pulse Oximetry Oxygen Delivery Me thod Sepsis Recent Feve r Within 48 Hours Sepsis New/Unexpla ined Change in Men darya Status Sepsis Action Take n by Nursing Physical Exam: Physical Exam GENERAL: She is oriented to person, place, and time. She appears well-developed and well-nourished. She does not appear distressed. HENT: Exam performed. -Head: Normocephalic and atraumatic. -Right Ear: External ear normal. No mastoid erythema -Left Ear: External ear normal. No mastoid erythema -Mouth/Throat: The oropharynx is clear and moist. No trismus in the jaw. No dental abscesses or uvula swelling. No oropharyngeal exudate or tonsillar abscesses. EYES: Conjunctivae and EOM are normal.Right eye exhibits no discharge. Left eye exhibits no discharge. scleral icterus present NECK: Normal range of motion. Neck supple. No JVD present. No tracheal deviation and normal range of motion present. CV: Normal rate, regular rhythm, normal heart sounds and intact distal pulses. There is no peripheral edema. Palpable radial pulses bue. PULM/CHEST: Effort normal and breath sounds normal. No respiratory distress. No stridor. She has no wheezes. She has no rales. -Chest Wall: She exhibits no tenderness. ABD: The abdomen is soft. Bowel sounds are normal. She has no distension. No mass is present. There is tenderness to palpation of the right upper quadrant. There is no rebound, no guarding, no Haynes's sign and no tenderness at McBurney's point. Rovsig negative MUSC/SKEL: Normal range of motion. There is no peripheral edema, tenderness or deformity. NEURO: Motor and sensation grossly intact. PSYCH: She has a normal mood and affect. Behavior is normal. Judgment and thought content normal. Course Course 1558: The patient was evaluated in room B6. A complete history and physical exam was performed Cardiac monitoring: An order was placed for continuous cardiac monitoring. The monitor shows a rate of 90 with sinus rhythm interpreted by me Patient was seen during a time of extreme volume and extreme acuity in the e mergency department. Nursing triage protocols were initiated and labs were drawn by protocol in the triage area. Patient's lactic acid greater than 3. AST 106 ALT 217 alkaline phosphatase 360 troponin 22. Patient not reporting chest pain. Total bilirubin 7 direct bilirubin 4.6. Magnesium 1.4. 30 cc/kg normal saline bolus ordered for the patient based off the patient's ideal body weight. Antibiotics ordered for the patient. 1820: Vital signs stable. Repeat lactic acid 2.7. Imaging showed marked x-ray and moderate intrahepatic biliary ductal dilatation concerning for biliary duct mass in the CBD or a calculus in the CBD. There is moderate gallbladder distention and borderline gallbladder wall thickening but no gallstones. Discussed case with GI on-call Dr. Self who states he thinks that the patient most likely has a stone in the CBD and placed the patient on the medicine servi ce and for GI to be consulted. [facility] hospitalist Dr. Mitchell will be notified. Administered Medications Sodium Chloride (Nss 1000ml) 1,000 mls @ 125 mls/hr IV .Q8H BRANDON Stop: 07/07/23 18:29 Last Admin: 06/07/23 18:59 Dose: 125 mls/hr Documented By: FINA Magnesium Sulfate/Dextrose (Magnesium Sulfate / D5w) 1 gm in 100 mls @ 50 mls/hr IV Q2H BRANDON Stop: 06/07/23 23:14 Last Admin: 06/07/23 19:21 Dose: 50 mls/hr Documented By: ARCHIE Discontinued Medications Piperacillin Sod/Tazobactam Sod (Zosyn) 4.5 gm in 120 mls @ 240 mls/hr IV NOW ONE Stop: 06/07/23 16:36 Last Infusion: 06/07/23 17:21 Dose: 0 mls/hr Documented By: Admin: 06/07/23 16:21 Dose: 240 mls/hr Documented By: FINA Sodium Chloride (Nss 1000ml) 500 mls @ 999 mls/hr IV .Q31M ONE Stop: 06/07/23 16:39 Last Infusion: 06/07/23 17:21 Dose: 0 mls/hr Documented By: Admin: 06/07/23 16:21 Dose: 999 mls/hr Documented By: FINA Sodium Chloride (Nss 1000ml) 2,000 mls @ 999 mls/hr IV .Q2H1M ONE Stop: 06/07/23 18:09 Last Infusion: 06/07/23 18:23 Dose: 0 mls/hr Documented By: Admin: 06/07/23 16:21 Dose: 999 mls/hr Documented By: FINA Ketorolac Tromethamine (Ketorolac Tromethamine 15 Mg/Ml Vial) 15 mg IV NOW STA Stop: 06/07/23 17:15 Last Admin: 06/07/23 17:18 Dose: 15 mg Documented By: FINA Ondansetron HCl (Ondansetron Inj 2 Mg/Ml 2 Ml Vial) Confirm Administered Dose 4 mg .ROUTE .STK-MED ONE Stop: 06/07/23 15:14 Last Admin: 06/07/23 15:15 Dose: 4 mg Documented By: MAYELA Ondansetron HCl (Ondansetron Inj 2 Mg/Ml 2 Ml Vial) 4 mg IV NOW STA Stop: 06/07/23 17:15 Last Admin: 06/07/23 17:18 Dose: 4 mg Documented By: FINA Medical Decision Making Laboratory Data Attestation: I reviewed the patient's lab results. 06/07/23 15:04 06/07/23 15:04 Lab Results 06/07/23 06/07/23 06/07/23 Range/Units 15:04 15:04 15:04 WBC 5.55 (4.8-10.8) K/ul RBC 4.42 L (4.70-6.10) M/uL Hgb 13.9 L (14.0-18.0) g/dl Hct 38.8 L (42.0-52.0) % MCV 87.8 (80.0-100.0) fL MCH 31.4 (25.0-34.0) pg MCHC 35.8 (32.0-36.0) g/dL RDW Std Deviation 39.5 (36.4-46.3) fL RDW Coeff of Joshua 12.4 (11.5-14.5) % Plt Count 209 (130-400) K/uL MPV 10.4 (9.4-12.4) fL Immature Gran % (Auto) 0.7 % Neut % (Auto) 92.1 % Lymph % (Auto) 5.6 % [place] % (Auto) 0.7 % Eos % (Auto) 0.7 % Baso % (Auto) 0.2 % Neut # (Auto) 5.11 (1.40-6.50) K/uL Lymph # (Auto) 0.31 L (1.2-3.4) K/uL [place] # (Auto) 0.04 L (0.11-0.59) K/uL Eos # (Auto) 0.04 (0-0.50) K/uL Baso # (Auto) 0.01 (0-0.2) K/uL Immature Gran # (Auto) 0.04 (0.01-0.20) K/uL Toxic Vacuolation 2+ Sodium 131 L (136-145) mmol/L Potassium 3.6 (3.5-5.1) mmol/L Chloride 95 L (98-107) mmol/L Carbon Dioxide 24 (21-32) mmol/L Anion Gap 12 H (3-11) BUN 15 (6-23) mg/dl Creatinine 1.08 (0.6-1.4) mg/dl Est Cr Clr Drug Dosing Not Reportable Est GFR ( Amer) 75.8 ml/min Est GFR (Non-Af Amer) 65.4 ml/min BUN/Creatinine Ratio 13.9 (10-20) Glucose 138 H (70-99(Fasting)) mg/dl POC Glucose (70-99) mg/dl Lactate (0.4-2.0) mmol/L Calcium 9.8 (8.6-10.3) mg/dl Magnesium 1.4 L (1.7-2.4) mg/dl Total Bilirubin 7.0 H (0.2-1.0) mg/dl Direct Bilirubin 4.6 H (0-0.2) mg/dl AST 106 H (13-39) U/L ALT 217 H (7-52) U/L Alkaline Phosphatase 360 H (34-104) U/L Troponin I High Sens 22.0 H (0-20) pg/ml Total Protein 7.7 (6.0-8.3) gm/dl Albumin 4.1 (3.4-5.0) gm/dl Lipase (11-82) U/L Procalcitonin 1.41 H (0-0.5) ng/ml Urine Color Urine Appearance (Clear) Urine pH (4.5-7.5) Ur Specific Lerna (1.000-1.030) Urine Protein (Negative) Urine Glucose (UA) (Negative) Urine Ketones (Negative) Urine Blood (Negative) Urine Nitrite (Negative) Urine Bilirubin (Negative) Urine Urobilinogen (Negative) Ur Leukocyte Esterase (Negative) Urine WBC (Auto) (0-5) /hpf Urine RBC (Auto) (0-4) /hpf U Hyaline Cast (Auto) (0-5) /lpf U Epithel Cells (Auto) (0-5) /lpf Urine Bacteria (Auto) (Negative) SARS-CoV-2, RNA, NAAT (NEGATIVE) 06/07/23 06/07/23 06/07/23 Range/Units 15:04 15:12 15:16 WBC (4.8-10.8) K/ul RBC (4.70-6.10) M/uL Hgb (14.0-18.0) g/dl Hct (42.0-52.0) % MCV (80.0-100.0) fL MCH (25.0-34.0) pg MCHC (32.0-36.0) g/dL RDW Std Deviation (36.4-46.3) fL RDW Coeff of Joshua (11.5-14.5) % Plt Count (130-400) K/uL MPV (9.4-12.4) fL Immature Gran % (Auto) % Neut % (Auto) % Lymph % (Auto) % [place] % (Auto) % Eos % (Auto) % Baso % (Auto) % Neut # (Auto) (1.40-6.50) K/uL Lymph # (Auto) (1.2-3.4) K/uL [place] # (Auto) (0.11-0.59) K/uL Eos # (Auto) (0-0.50) K/uL Baso # (Auto) (0-0.2) K/uL Immature Gran # (Auto) (0.01-0.20) K/uL Toxic Vacuolation Sodium (136-145) mmol/L Potassium (3.5-5.1) mmol/L Chloride (98-107) mmol/L Carbon Dioxide (21-32) mmol/L Anion Gap (3-11) BUN (6-23) mg/dl Creatinine (0.6-1.4) mg/dl Est Cr Clr Drug Dosing Est GFR ( Amer) ml/min Est GFR (Non-Af Amer) ml/min BUN/Creatinine Ratio (10-20) Glucose (70-99(Fasting)) mg/dl POC Glucose 157 H (70-99) mg/dl Lactate 3.1 H* (0.4-2.0) mmol/L Calcium (8.6-10.3) mg/dl Magnesium (1.7-2.4) mg/dl Total Bilirubin (0.2-1.0) mg/dl Direct Bilirubin (0-0.2) mg/dl AST (13-39) U/L ALT (7-52) U/L Alkaline Phosphatase (34-104) U/L Troponin I High Sens (0-20) pg/ml Total Protein (6.0-8.3) gm/dl Albumin (3.4-5.0) gm/dl Lipase 12 (11-82) U/L Procalcitonin (0-0.5) ng/ml Urine Color Urine Appearance (Clear) Urine pH (4.5-7.5) Ur Specific Lerna (1.000-1.030) Urine Protein (Negative) Urine Glucose (UA) (Negative) Urine Ketones (Negative) Urine Blood (Negative) Urine Nitrite (Negative) Urine Bilirubin (Negative) Urine Urobilinogen (Negative) Ur Leukocyte Esterase (Negative) Urine WBC (Auto) (0-5) /hpf Urine RBC (Auto) (0-4) /hpf U Hyaline Cast (Auto) (0-5) /lpf U Epithel Cells (Auto) (0-5) /lpf Urine Bacteria (Auto) (Negative) SARS-CoV-2, RNA, NAAT (NEGATIVE) 06/07/23 06/07/23 06/07/23 Range/Units 15:16 16:15 17:15 WBC (4.8-10.8) K/ul RBC (4.70-6.10) M/uL Hgb (14.0-18.0) g/dl Hct (42.0-52.0) % MCV (80.0-100.0) fL MCH (25.0-34.0) pg MCHC (32.0-36.0) g/dL RDW Std Deviation (36.4-46.3) fL RDW Coeff of Joshua (11.5-14.5) % Plt Count (130-400) K/uL MPV (9.4-12.4) fL Immature Gran % (Auto) % Neut % (Auto) % Lymph % (Auto) % [place] % (Auto) % Eos % (Auto) % Baso % (Auto) % Neut # (Auto) (1.40-6.50) K/uL Lymph # (Auto) (1.2-3.4) K/uL [place] # (Auto) (0.11-0.59) K/uL Eos # (Auto) (0-0.50) K/uL Baso # (Auto) (0-0.2) K/uL Immature Gran # (Auto) (0.01-0.20) K/uL Toxic Vacuolation Sodium (136-145) mmol/L Potassium (3.5-5.1) mmol/L Chloride (98-107) mmol/L Carbon Dioxide (21-32) mmol/L Anion Gap (3-11) BUN (6-23) mg/dl Creatinine (0.6-1.4) mg/dl Est Cr Clr Drug Dosing Est GFR ( Amer) ml/min Est GFR (Non-Af Amer) ml/min BUN/Creatinine Ratio (10-20) Glucose (70-99(Fasting)) mg/dl POC Glucose (70-99) mg/dl Lactate 2.7 H* (0.4-2.0) mmol/L Calcium (8.6-10.3) mg/dl Magnesium (1.7-2.4) mg/dl Total Bilirubin (0.2-1.0) mg/dl Direct Bilirubin (0-0.2) mg/dl AST (13-39) U/L ALT (7-52) U/L Alkaline Phosphatase (34-104) U/L Troponin I High Sens (0-20) pg/ml Total Protein (6.0-8.3) gm/dl Albumin (3.4-5.0) gm/dl Lipase (11-82) U/L Procalcitonin (0-0.5) ng/ml Urine Color Dark Yellow Urine Appearance Clear (Clear) Urine pH 5.0 (4.5-7.5) Ur Specific Lerna 1.009 (1.000-1.030) Urine Protein 2+ H (Negative) Urine Glucose (UA) Negative (Negative) Urine Ketones Negative (Negative) Urine Blood Negative (Negative) Urine Nitrite Negative (Negative) Urine Bilirubin 1+ H (Negative) Urine Urobilinogen Negative (Negative) Ur Leukocyte Esterase Negative (Negative) Urine WBC (Auto) 0 (0-5) /hpf Urine RBC (Auto) 0-4 (0-4) /hpf U Hyaline Cast (Auto) 1-5 (0-5) /lpf U Epithel Cells (Auto) 0-5 (0-5) /lpf Urine Bacteria (Auto) Negative (Negative) SARS-CoV-2, RNA, NAAT NEGATIVE (NEGATIVE) Imaging Data Attestation: I personally reviewed and interpreted this imaging study as follows : My Impression: Chest x-ray negative. Airway clear. No pneumothorax. No consolidation. No cardiomegaly or cephalization.. No free air under the diaphragm. No fractures of the skeletal structures. Radiologist's Impression: Chest X-Ray 06/07/23 14:46 XR chest 1V portable HISTORY: 77 years-old Male Sepsis COMPARISON: 07/13/2021 TECHNIQUE: AP view of the chest FINDINGS: Cardiac silhouette is enlarged. No pneumothorax, pleural effusion, airspace consolidation or pulmonary edema. Degenerative changes of the shoulders and spine. IMPRESSION: No acute process. ACT 112: Negative or not required by law. The above report was generated using voice recognition software. It may contain grammatical, syntax or spelling errors. Electronically signed by: Wilfred Gaspar M.D. 06/07/2023 4:06 PM Chest/Abdomen X-ray 06/07/23 16:04 PA CHEST RADIOGRAPH AND UPRIGHT AND SUPINE AP RADIOGRAPHS OF THE ABDOMEN CLINICAL HISTORY: ruq epigastric pain COMPARISON STUDY: Chest CT July 13, 2021. Chest radiograph performed earlier today. CT of the abdomen and pelvis March 18, 2019. MRCP June 25, 2019. FINDINGS: No pneumothorax or pleural effusion is present. No consolidation to suggest pneumonia. Cardiomediastinal silhouette is unremarkable. There is no free air. The bowel gas pattern is normal. Pelvic calcifications favor phleboliths and vascular calcifications. IMPRESSION: 1. No free air or evidence of a bowel obstruction. 2. No acute cardiopulmonary findings. ACT 112: Negative or not required by law. Electronically signed by: Dannie Schultz M.D. 06/07/2023 6:39 PM Gallbladder Ultrasound 06/07/23 16:04 US gallbladder CLINICAL HISTORY: Right upper quadrant abdominal pain. COMPARISON STUDY: CT of the abdomen and pelvis March 18, 2019. MRCP June 25, 2019. 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 No additional hepatic lesions are identified. There is moderate intrahepatic biliary ductal dilatation. There is marked dilatation of the common bile duct, measuring approximately 2 cm in caliber. No common bile duct calculi are identified although the distal common bile duct is obscured. The gallbladder is moderately distended. Sonographic Haynes sign could not be assessed for in this patient. There is borderline gallbladder wall thickening. No pericholecystic fluid is noted. Pancreatic body is normal. Head and tail are partially obscured. Caliber of the pancreatic duct is at the upper limits of normal. There is no right hydronephrosis. IMPRESSION: 1. Marked extra and moderate intrahepatic biliary ductal dilatation. This raises possibility of a sonographically occult common bile duct calculus or mass. Correlation with obstructive liver function tests is recommended. MRCP could be obtained for further evaluation. 2. Moderate gallbladder distention and borderline gallbladder wall thickening. No gallstones. No convincing evidence for acute cholecystitis although a hepatobiliary scan could be obtained to exclude this possibility. 3. Partially obscured pancreas. ACT 112: Negative or not required by law. Electronically signed by: Dannie Schultz M.D. 06/07/2023 6:01 PM ECG Data Attestation: I personally reviewed and interpreted this ECG as follows: Indication: abdominal pain Rate (beats per minute): 92 Rhythm: normal sinus Findings: + 1st degree AV block; no ST depression, no ST elevation or no prolonged QT MDM Narrative 1558: The patient was evaluated in room B6. A complete history and physical exam was performed Cardiac monitoring: An order was placed for continuous cardiac monitoring. The monitor shows a rate of 90 with sinus rhythm interpreted by me Patient was seen during a time of extreme volume and extreme acuity in the emergency department. Nursing triage protocols were initiated and labs were drawn by protocol in the triage area. Patient's lactic acid greater than 3. AST 106 ALT 217 alkaline phosphatase 360 troponin 22. Patient not reporting chest pain. Total bilirubin 7 direct bilirubin 4.6. Magnesium 1.4. 30 cc/kg normal saline bolus ordered for the patient based off the patient's ideal body weight. Antibiotics ordered for the patient. 1820: Vital signs stable. Repeat lactic acid 2.7. Imaging showed marked x-ray and moderate intrahepatic biliary ductal dilatation concerning for biliary duct mass in the CBD or a calculus in the CBD. There is moderate gallbladder distention and borderline gallbladder wall thickening but no gallstones. Discussed case with GI on-call Dr. Self who states he thinks that the patient most likely has a stone in the CBD and placed the patient on the medicine service and for GI to be consulted. [facility] hospitalist Dr. Mitchell will be notified. Impression & Plan Common bile duct obstruction, Transaminitis, Sepsis Critical Care Time Critical Care Time: Yes Total Critical Care Time: 52 I have personally spent greater than 52 minutes of critical care time in the direct management of this patient. This includes bedside care, interpretation of diagnostic studies, and testing, discussion with consultants, patient, and family members, and other required patient management activities. This 52 minutes is in excess of all separately billable procedures. Discharge Plan Visit Data Chief Complaint: Vomiting Stated Complaint: CHILLS,VOMITING ED Provider: Keegan Marte Discharge Problem: Common bile duct obstruction, Transaminitis, Sepsis Patient Disposition: Admitted As Inpatient Forms Stand Alone Forms: [facility] Prescriptions Prescriptions: No Action cyclosporine 0.05 % dropperette 1 drops OP BID Qty: 30 0RF nystatin 500,000 unit tablet 500,000 unit PO TID Qty: 270 5RF montelukast [Singulair] 10 mg tablet 10 mg PO QPM potassium chloride 20 mEq tablet extended release 20 meq PO DAILY Qty: 90 3RF doxazosin 2 mg tablet 2 mg PO BID Qty: 180 3RF valsartan 160 mg tablet 160 mg PO BID Qty: 180 3RF carvedilol 25 mg tablet 25 mg PO BID Qty: 180 3RF Rx Instructions: must administer with a meal/food (DME) [employer] test strips Strip See Rx Instructions .Route Qty: 50 3RF Rx Instructions: As directed (DME) lancets [RecommendiTouch Delica Plus Lancet] 30 gauge misc See Rx Instructions .Route Qty: 100 3RF Rx Instructions: As directed Rybelsus 3 mg tablet 3 mg PO DAILY 30 Days Qty: 30 0RF alprazolam [Xanax] 0.5 mg tablet 0.5 mg PO QPM Qty: 30 0RF aspirin 81 mg tablet,delayed release (DR/EC) 81 mg PO DAILY Qty: 30 2RF amlodipine 5 mg tablet 5 mg PO DAILY Qty: 90 3RF multivitamin Tablet 1 tab PO QAM coenzyme Q10 100 mg tablet 100 mg PO QAM glucosamine-chondroitin 900 mg tablet 900 mg PO BID pantoprazole [Protonix] 40 mg tablet,delayed release (DR/EC) 40 mg PO DAILY ascorbate calcium (vitamin C) 500 mg tablet 500 mg PO QAM fexofenadine 180 mg tablet 180 mg PO QAM guaifenesin 600 mg tablet extended release 12hr 600 mg PO Q12H (DME) blood-glucose meter [Proformative Verio Flex Start] Kit See Rx Instructions .Route Qty: 1 0RF Rx Instructions: As directed vitamin B complex Capsule 1 cap PO QAM omega-3 fatty acids 1,000 mg Capsule 1,000 mg PO DAILY cholecalciferol (vitamin D3) [Vitamin D3] 25 mcg (1,000 unit) Capsule 25 mcg PO DAILY budesonide-formoterol [Symbicort] 160-4.5 mcg/actuation Hfa Aerosol Inhaler 1 inh INHALATION BID torsemide 20 mg tablet 10 mg PO QAM metformin 500 mg tablet extended release 24 hr 500 mg PO BID sucralfate 1 gram tablet 1 g PO BID PRN (Reason: Heartburn) Rx Instructions: PER PT "USUALLY TAKE AT HS". carboxymethylcellulose sodium [Refresh Tears] 0.5 % Drops 1 drp OPHTHALMIC (EYE) DIRECTED PRN (Reason: Dry Eyes) calcium citrate-vitamin D3 [Citracal plus D] 250 mg-5 mcg (200 unit) Tablet 1 tab PO BID Referrals Referrals: Demetrius Vazquez DO [Primary Care Provider] -
[2023-06-07] MEDS ORDERED: SODIUM CHLORIDE 0.9% 1000ML 1,000 ML IV SCH (18:30)
--- NOTE | 2023-06-07 18:41 | XRay Report ---
PA CHEST RADIOGRAPH AND UPRIGHT AND SUPINE AP RADIOGRAPHS OF THE ABDOMEN CLINICAL HISTORY: ruq epigastric pain COMPARISON STUDY: Chest CT July 13, 2021. Chest radiograph performed earlier today. CT of the ab domen and pelvis March 18, 2019. MRCP June 25, 2019. FINDINGS: No pneumothorax or pleural effusion is present. No consolidation to suggest pneumonia. Car diomediastinal silhouette is unremarkable. There is no free air. The bowel gas pattern is normal. Pel chandrakant calcifications favor phleboliths and vascular calcifications. IMPRESSION: 1. No free air or evidence of a bowel obstruction. 2. No acute cardiopulmonary findings. ACT 112: Negative or not required by law. Electronically signed by: Dannie Schultz M.D. 06/07/2023 6:39 PM
--- NOTE | 2023-06-07 18:48 | History & Physical Report ---
Date of Service June 07, 2023 Assessment & Plan (1) Cholelithiasis with choledocholithiasis: Plan: 77-year-old male who presents with several episodes of right upper abdominal epigastric pain which is associated with mir[employer] colored [employer] earlier in the week. Has had a feeling of nausea/vomiting and some cold sweats/chills with his nausea and pain episodes. Choledocholithiasis US: 1. Marked extra and moderate intrahepatic biliary ductal dilatation. This raises possibility of a sonographically occult common bile duct calculus or mass. Correlation with obstructive liver function tests is recommended. MRCP could be obtained for further evaluation. 2. Moderate gallbladder distention and borderline gallbladder wall thickening. No gallstones. No convincing evidence for acute cholecystitis although a hepatobiliary scan could be obtained to exclude this possibility.3. Partially obscured pancreas. No lower abdominal tenderness, no rebound, abdomen soft. Has focal right upper quadrant and epigastric tenderness MRCP pending Transaminitis and scleral icterus suspect due to obstruction GI consulted, surgery consulted No leukocytosis. Given feelings of fever/sweats and obstruction, will cover empirically with Zosyn on admit Hypertension No history of CAD/CHF per patient, is on torsemide and has had some intermittent leg swelling suspicious for diastolic failure versus venous stasis. No history of pulmonary edema per Has had hypertension which has been decompensated in the past with any attempted change to his medications. Notes that he is well controlled on his medicines, is sometimes lower in the hospital, but prior in hospital changes to his medications have led to decompensation as outpatient Continue home carvedilol, amlodipine, aspirin, doxazosin, torsemide, valsartan on admission. Aspirin temporarily held pending surgical evaluation. No history of stents Elevated troponin, history of diastolic heart failure Patient does deny history of heart failure but is on torsemide and noted to have grade 2 diastolic dysfunction in 2018 Troponin 22 on admission. Trended. repeat drawn at time of admission consultation Last dobutamine stress echo 2018 with EF 55 to 60%, grade 2 diastolic dysfunction. No evidence of ischemia at that time, test was aborted early due to hypertension Updated echo pending Does not appear volume overloaded, clinically slightly hypovolemic with elevated lactate. Cautious fluids. Hold IVF M if volume overload develops Last EKG 2019 sinus rhythm with AV block - EKG on admit: sinus tachycardia. QTc 497. No acute St/t wave changes Type II DM N.p.o. Basal bolus while inpatient, dose reduce Lantus by 30% while n.p.o. Goal BSG [id number] Asthma Continue home inhalers ROBERT CPAP nightly as needed DVT prophylaxis: SCDs, heparin. Hold prior to cholecystectomy if scheduled Disposition: Medical telemetry given elevated lactate and hypomagnesemia Diet: N.p.o + Meds., IVF M CODE STATUS: Full code (2) GERD (gastroesophageal reflux disease): (3) Type 2 diabetes mellitus: (4) Chronic obstructive pulmonary disease: (5) Sleep apnea: (6) Hypertension: (7) Generalized anxiety disorder: History of Present Illness Primary Care Provider: Demetrius Vazquez, DO Fever, nausea, chills and pain by his stomach. Had episode of pain 2 days ago, and 3 prior episodes which were intermittent in the last month. Has not noticed any exacerbating factors or remitting factors. Did eat breakfast before current episode of pain BMs generally brown. Last week 'was really weird but white/miriam colored.' HTN, no hx of heart problems/CAD/Heart failure. 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 No sx with performances No shortness of breath No tobacco/ETOH use FHX: Sister with gallstones 'a long time ago.' Older brother with the same. FHx of CAD in older age in brother, mother. Father had a pacemaker in old age., Stress test 5 years ago stopped due to HTN, bu tno ischemic change within test as noted. +nausea. +emesis today, nonbloody. Medical History: Reviewed Medications: Reviewed Surgical History: Reviewed Family history: Reviewed Allergies: Reviewed Social History: No tobacco. Social etoh. 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 No hx of withdrawl. Code Status: FUll Code Allergies Allergy/AdvReac Type Severity Reaction Status Date / Time erythromycin base AdvReac Intermediate GI UPSET Verified 06/07/23 16:47 Iodinated Contrast Media AdvReac Intermediate elevated Verified 06/07/23 16:47 creatinine meperidine AdvReac Intermediate gi upset Verified 06/07/23 16:47 morphine AdvReac Intermediate n/v Verified 06/07/23 16:47 codeine AdvReac Mild NAUSEA Verified 06/07/23 16:47 Home Medications Medication Instructions Recorded Confirmed Type ascorbate calcium (vitamin C) 500 500 mg PO QAM 07/05/19 06/07/23 History mg tablet fexofenadine 180 mg tablet 180 mg PO QAM 08/06/19 06/07/23 History guaifenesin 600 mg tablet, 600 mg PO Q12H 08/06/19 06/07/23 History extended release 12 hr multivitamin 1 tab PO QAM 11/27/19 06/07/23 History cyclosporine 0.05 % eye drops in a 1 drops ophthalmic (eye) BID #30 ea 06/10/20 06/07/23 Rx dropperette vitamin B complex 1 cap PO QAM 08/14/20 06/07/23 History coenzyme Q10 100 mg tablet 100 mg PO QAM 08/19/20 06/07/23 History antiarthritic combination no.2 900 900 mg PO BID 03/03/21 06/07/23 History mg tablet (glucosamine-chondroitin) aspirin 81 mg tablet,delayed 81 mg PO DAILY #30 tabs 02/10/22 06/07/23 Rx release nystatin 500,000 unit tablet 500,000 unit PO TID #270 tabs 03/18/22 06/07/23 Rx montelukast 10 mg tablet 10 mg PO QPM 10/13/22 06/07/23 History (Singulair) pantoprazole 40 mg tablet,delayed 40 mg PO DAILY 10/14/22 06/07/23 History release (Protonix) potassium chloride 20 mEq 20 meq PO DAILY #90 tabs 01/19/23 06/07/23 Rx tablet,extended release doxazosin 2 mg tablet 2 mg PO BID #180 tabs 02/08/23 06/07/23 Rx amlodipine 5 mg tablet 5 mg PO DAILY #90 tabs 02/16/23 06/07/23 Rx valsartan 160 mg tablet 160 mg PO BID #180 tabs 03/15/23 06/07/23 Rx carvedilol 25 mg tablet 25 mg PO BID #180 tabs 04/21/23 06/07/23 Rx blood-glucose meter (OneTouch #1 ea 04/24/23 04/24/23 Rx Verio Flex Start kit) blood sugar diagnostic (OneTouch #50 ea 04/27/23 Rx Verio test strips) lancets 30 gauge (OneTouch Delica #100 ea 04/27/23 Rx Plus Lancet) semaglutide 3 mg tablet (Rybelsus) 3 mg PO DAILY 30 days #30 tabs 05/16/23 06/07/23 Rx alprazolam 0.5 mg tablet (Xanax) 0.5 mg PO QPM #30 tabs 05/31/23 06/07/23 Rx budesonide-formoterol HFA 160 1 inh inhalation BID 06/07/23 06/07/23 History mcg-4.5 mcg/actuation aerosol inhaler (Symbicort) calcium citrate 250 mg 1 tab PO BID 06/07/23 06/07/23 History calcium-vitamin D3 5 mcg (200 unit) tablet carboxymethylcellulose sodium 0.5 1 drp ophthalmic (eye) DIRECTED 06/07/23 06/07/23 History % eye drops (Refresh Tears) PRN Dry Eyes cholecalciferol (vitamin D3) 25 25 mcg PO DAILY 06/07/23 06/07/23 History mcg (1,000 unit) capsule (Vitamin D3) metformin 500 mg tablet,extended 500 mg PO BID 06/07/23 06/07/23 History release 24 hr omega-3 fatty acids 1,000 mg 1,000 mg PO DAILY 06/07/23 06/07/23 History capsule sucralfate 1 gram tablet 1 g PO BID PRN Heartburn 06/07/23 06/07/23 History torsemide 20 mg tablet 10 mg PO QAM 06/07/23 06/07/23 History Past Med/Surg History Medical History Acute and chronic respiratory failure with hypoxia 2018 2/2 influenza Allergic rhinitis Asthma Chronic obstructive pulmonary disease Follows with [facility] (Gonzalo Arizmendi) Degenerative joint disease Diabetes Diverticulosis of colon Esophageal spasm Generalized anxiety disorder GERD (gastroesophageal reflux disease) Gynecomastia, male Migraine headache hx Obesity Sensorineural hearing loss (SNHL) of left ear with restricted hearing of right ear Sinus pressure Sleep apnea c pap. Pt reports full compliance. Tennis elbow syndrome Tinnitus, bilateral Vertigo Surgical History H/O colonoscopy H/O rotator cuff surgery right and left H/O sinus surgery History of carpal tunnel release of both wrists History of esophagogastroduodenoscopy (EGD) History of left knee replacement History of right knee surgery S/P trigger finger release Status post right knee replacement Status post right partial knee replacement Family History Sister Diabetes Hypertension Brother Hypertension Mother Hypertension Myocardial infarction Heart disease Stroke Father Hypertension Myocardial infarction Stroke Denies family history of Ovarian cancer Prostate cancer Breast cancer Colorectal cancer Social History Smoking Status: Never smoker Tobacco Type: Cigarettes Age Started Using Tobacco: 9; Age Quit Using Tobacco: 16; packs per day: 1; Cigarettes Per Day: was social; Second Hand Exposure: Yes; Do You Dip or Chew Tobacco: No; Hx Alcohol Use: Yes Alcohol type: beer Alcohol Intake Frequency: Monthly or Less Alcohol Intake Frequency 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 NAD. Cooperative. HEENT: Atraumatic, normocephalic. Vision/hearing grossly intact. Pulm: CTAB A&P. -wheezes, -rales, -rhonchi. Symmetrical chest rise. No increased work of breathing. No respiratory distress. Cardiac: RRR, -mrg. Radial pulses intact and symmetrical. Abdominal: +RUQ pain, epigastric pain. no rebound. soft. No lower tenderness. Ext: warm, dry. Moves all extremities equally. Results & Data Results & Data Vital Signs (Past 12 Hours) Vital Signs Temp Pulse Resp BP Pulse Ox O2 Del Method 06/07/23 17:20 74 18 92 06/07/23 17:10 73 22 91 06/07/23 17:00 74 24 93 06/07/23 17:00 133/70 06/07/23 16:50 76 22 91 06/07/23 16:40 77 21 91 06/07/23 16:30 78 23 92 06/07/23 16:30 128/67 06/07/23 16:20 80 23 91 06/07/23 16:15 80 24 91 06/07/23 16:19 80 06/07/23 15:54 84 17 90 Room Air 06/07/23 14:43 37.2 C 95 H 18 122/69 93 Room Air PG Care Time/CCT Total # of Minutes Spent Total Time Spent with Patient: Total time spent is greater than 50% in coordination of care (as documented) at patient's floor/unit and/or counseling patient: Coding Level of Care Code 03715 INT INP/OBS CARE MIN Diagnoses Cholelithiasis with choledocholithiasis K80.70 GERD (gastroesophageal reflux disease) K21.9 Type 2 diabetes mellitus E11.9 Chronic obstructive pulmonary disease J44.9 Sleep apnea G47.30 Hypertension I10 Hypertension type: essential hypertension Generalized anxiety disorder F41.1 (6) Hypertension Hypertension type: essential hypertension Qualified Code(s): I10 - Essential (primary) hypertension
[2023-06-07] MEDS ORDERED: DEXTROSE 50% 50 ML SYRINGE IV PRN (19:02)
[2023-06-07] MEDS ORDERED: GLUCOSE 10 TAB/TUBE PO PRN (19:02)
[2023-06-07] MEDS ORDERED: CARBOHYDRATES FOR HYPOGLYCEMIA PO PRN (19:02)
[2023-06-07] MEDS ORDERED: GLUCAGON FOR INJ 1 MG VIAL SQ PRN (19:02)
[2023-06-07] MEDS ORDERED: GLUCOSE 40% GEL 15 GM TUBE PO PRN (19:02)
[2023-06-07] MEDS: MAGNESIUM SULFATE / D5W 1 GM/100 ML BAG IV SCH ×2 (19:21→21:39)
[2023-06-07] MEDS ORDERED: INSULIN ASPART PER UNIT CHARGE SC SCH (21:00)
[2023-06-07] MEDS ORDERED: ARTIFICIAL TEARS OPB PRN (21:10)
[2023-06-07] MEDS ORDERED: ARTIFICIAL TEARS OP PRN (21:29)
[2023-06-07] MEDS: LACTATED RINGER'S 1,000 ML IV SCH (21:31)
[2023-06-07] MEDS: LANTUS PER UNIT CHARGE SQ SCH (21:33)
[2023-06-08] MEDS: ALPRAZolam 0.5 MG TABLET PO SCH ×2 (01:14→20:13)
[2023-06-08] MEDS: DOXAZosin MESYLATE TAB 2 MG TAB PO SCH ×3 (01:15→20:13)
[2023-06-08] MEDS: carvediloL 25 MG TAB PO SCH ×3 (01:16→16:06)
[2023-06-08] MEDS: VALSARTAN 80 MG TAB PO SCH ×3 (01:18→20:14)
[2023-06-08] MEDS: MONTELUKAST SODIUM 10 MG TABLET PO SCH ×2 (01:19→20:14)
[2023-06-08] MEDS: PIPERACILLIN/TAZOBACTAM 4.5 GM in DEXTROSE 5% 100 ML IV SCH ×3 (01:20→16:07)
[2023-06-08] MEDS ORDERED: Nursing to Pharmacy Communication SCH ×3 (02:00→14:15)
--- NOTE | 2023-06-08 03:24 | Magnetic Resonance Report ---
Exam(s): MRI MRCP EXAM: MR Abdomen Without Intravenous Contrast, MRCP Protocol CLINICAL HISTORY: Reason for exam: ?choledoco vs mass. TECHNIQUE: Multiplanar magnetic resonance images of the abdomen without intravenous contrast using MRCP protocol. COMPARISON: 06/25/2019. FINDINGS: Lower thorax: Trace bilateral pleural effusions. Mild bilateral lower lobe atelectasis. Mild cardiomegaly. Bile ducts: Distention of the common bile duct to the level of the spine without voiding with no tapering seen and therefore, cannot exclude an ampullary lesion or stricture. Gallbladder: Unremarkable. No stones. Liver: Fluid filled structure consistent with a cyst within the right liver lobe measuring 7.2 x 6.2 x 4.5 cm. Otherwise unremarkable liver. Pancreas: Unremarkable. Normal pancreatic duct. Spleen: Unremarkable. No splenomegaly. Adrenals: Unremarkable. No mass. Kidneys and ureters: Unremarkable. No hydronephrosis. Stomach and bowel: Distention of the colon bile duct up to maximum diameter of 15.6 mm in the cephalad portion. Just below this level there is a filling defect consistent with a common bile duct stone measuring 1. 4 cm. There is mild distention of the remainder of the distal common bile duct up to maximum 1.4 cm. Normal duodenal C-loop. IMPRESSION: 1. Dilatation of the common bile duct with a 1.4 cm in the mid outer aspect of the common bile duct as described. Cannot exclude ampullary lesion or stricture. If indicated, this findings may be further characterized with ERCP if clinically indicated. 2. 7.2 cm right liver lobe cyst. 3. Trace bilateral pleural effusions with mild bilateral lower lobe atelectasis. Electronically signed by: Letty Aceves MD 06/08/23 03:23 AM
[2023-06-08 03:47] LABS: Basophils # (auto) 0.02 K/uL (0-0.2); Basophils % (auto) 0.2 %; Eosinophils % (auto) 0.8 %; Hematocrit (blood only) 33.2 % (42.0-52.0); Hemoglobin 11.7 g/dl (14.0-18.0); Immature Granulocytes # (auto) 0.09 K/uL (0.01-0.20); Immature Granulocytes % (auto) 0.7 %; Lymphocytes # (auto) 1.42 K/uL (1.2-3.4); Lymphocytes % (auto) 10.8 %; Mean Corpuscular Hemoglobin 31.7 pg (25.0-34.0); Mean Corpuscular Hgb Conc 35.2 g/dL (32.0-36.0); Mean Platelet Volume 10.3 fL (9.4-12.4); Monocytes # (auto) 0.89 K/uL (0.11-0.59); Monocytes % (auto) 6.8 %; Neutrophils # (auto) 10.59 K/uL (1.40-6.50); Neutrophils % (auto) 80.7 %; Platelet Count 163 K/uL (130-400); RDW Coefficient of Variation 12.6 % (11.5-14.5); RDW Standard Deviation 41.1 fL (36.4-46.3); Red Blood Count 3.69 M/uL (4.70-6.10); White Blood Count 13.11 K/ul (4.8-10.8)
[2023-06-08 03:58] LABS: Albumin Globulin Ratio 1.2 (0.9-2); Albumin Level 3.4 gm/dl (3.4-5.0); BUN Creatinine Ratio 12.6 (10-20); Bilirubin,Total 4.6 mg/dl (0.2-1.0); Est GFR (African American) 88.5 ml/min; Est GFR (Non-African American) 76.4 ml/min; Globulin 2.9 gm/dl (2.5-4.0); Magnesium 2.1 mg/dl (1.7-2.4); Potassium 3.8 mmol/L (3.5-5.1); Total Protein 6.3 gm/dl (6.0-8.3)
[2023-06-08] MEDS: INSULIN ASPART PER UNIT CHARGE SC SCH ×4 (06:28→20:14)
[2023-06-08] MEDS ORDERED: carvediloL 25 MG TAB PO SCH (08:00)
[2023-06-08] MEDS: PANTOprazole 40 MG TAB PO SCH (09:14)
[2023-06-08] MEDS: FLUTICASONE/VILANTEROL 200/25MCG 14 PUFFS/INHALER INH SCH (09:14)
[2023-06-08] MEDS: amLODIPine BESYLATE 5 MG TAB PO SCH (09:14)
[2023-06-08] MEDS: FEXOFENADINE HCL 180 MG TAB PO SCH (09:14)
[2023-06-08] MEDS: VITAMIN B COMPLEX TAB PO SCH (09:14)
[2023-06-08] MEDS: LACTATED RINGER'S 1,000 ML IV SCH ×2 (09:15→21:45)
[2023-06-08] MEDS: CHOLECALCIFEROL 1,000 UNITS 25 MCG TAB PO SCH (09:15)
[2023-06-08] MEDS: POTASSIUM CHLORIDE CRTAB 20 MEQ TABCR PO SCH (09:18)
[2023-06-08] MEDS: LANTUS PER UNIT CHARGE SQ SCH ×2 (09:18→20:14)
--- NOTE | 2023-06-08 09:34 | Surgery Consultation ---
Date of Consultation June 08, 2023 Assessment & Plan (1) Common bile duct obstruction: No evidence of acute cholecystitis and no evidence of gallstones however MRCP suggest common bile duct obstruction /potentially an occult gallstone versus some sort of malignancy. Gastroenterology on board. Will likely require an ERCP. Will await recommendations after findings of the ERCP regarding the need for cholecystectomy or not. There is no urgent indication. We will follow along closely. (2) Type 2 diabetes mellitus: (3) Sleep apnea: (4) Hypertension: (5) Chronic obstructive pulmonary disease: History of Present Illness Attending Physician: Mark Melendez MD History of Present Illness 77-year-old male with a several month history of "attacks". These attacks come in the form of upper abdominal pain as well as nausea and occasionally vomiting. Most recently over the past week or so his stools have turned to a miriam color and his urine has turned dark. He presented to the emergency room yesterday with severe pain and nausea. He currently feels much better and is comfortable with no pain or nausea. He states that he has lost about 20 pounds over the last year but that he has been trying to lose weight because of his diabetes. Allergies Allergy/AdvReac Type Severity Reaction Status Date / Time erythromycin base AdvReac Intermediate GI UPSET Verified 06/07/23 16:47 Iodinated Contrast Media AdvReac Intermediate elevated Verified 06/07/23 16:47 creatinine meperidine AdvReac Intermediate gi upset Verified 06/07/23 16:47 morphine AdvReac Intermediate n/v Verified 06/07/23 16:47 codeine AdvReac Mild NAUSEA Verified 06/07/23 16:47 Home Medications Medication Instructions Recorded Confirmed Type ascorbate calcium (vitamin C) 500 500 mg PO QAM 07/05/19 06/07/23 History mg tablet fexofenadine 180 mg tablet 180 mg PO QAM 08/06/19 06/07/23 History guaifenesin 600 mg tablet, 600 mg PO Q12H 08/06/19 06/07/23 History extended release 12 hr multivitamin 1 tab PO QAM 11/27/19 06/07/23 History cyclosporine 0.05 % eye drops in a 1 drops ophthalmic (eye) BID #30 ea 06/10/20 06/07/23 Rx dropperette vitamin B complex 1 cap PO QAM 08/14/20 06/07/23 History coenzyme Q10 100 mg tablet 100 mg PO QAM 08/19/20 06/07/23 History antiarthritic combination no.2 900 900 mg PO BID 03/03/21 06/07/23 History mg tablet (glucosamine-chondroitin) aspirin 81 mg tablet,delayed 81 mg PO DAILY #30 tabs 02/10/22 06/07/23 Rx release nystatin 500,000 unit tablet 500,000 unit PO TID #270 tabs 03/18/22 06/07/23 Rx montelukast 10 mg tablet 10 mg PO QPM 10/13/22 06/07/23 History (Singulair) pantoprazole 40 mg tablet,delayed 40 mg PO DAILY 10/14/22 06/07/23 History release (Protonix) potassium chloride 20 mEq 20 meq PO DAILY #90 tabs 01/19/23 06/07/23 Rx tablet,extended release doxazosin 2 mg tablet 2 mg PO BID #180 tabs 02/08/23 06/07/23 Rx amlodipine 5 mg tablet 5 mg PO DAILY #90 tabs 02/16/23 06/07/23 Rx valsartan 160 mg tablet 160 mg PO BID #180 tabs 03/15/23 06/07/23 Rx carvedilol 25 mg tablet 25 mg PO BID #180 tabs 04/21/23 06/07/23 Rx blood-glucose meter (OneTouch #1 ea 04/24/23 04/24/23 Rx Verio Flex Start kit) blood sugar diagnostic (OneTouch #50 ea 04/27/23 Rx Verio test strips) lancets 30 gauge ([facility]a 04/27/23 Rx Plus Lancet) semaglutide 3 mg tablet (Rybelsus) 3 mg PO DAILY 30 days #30 tabs 05/16/23 06/07/23 Rx alprazolam 0.5 mg tablet (Xanax) 0.5 mg PO QPM #30 tabs 05/31/23 06/07/23 Rx budesonide-formoterol HFA 160 1 inh inhalation BID 06/07/23 06/07/23 History mcg-4.5 mcg/actuation aerosol inhaler (Symbicort) calcium citrate 250 mg 1 tab PO BID 06/07/23 06/07/23 History calcium-vitamin D3 5 mcg (200 unit) tablet carboxymethylcellulose sodium 0.5 1 drp ophthalmic (eye) DIRECTED 06/07/23 06/07/23 History % eye drops (Refresh Tears) PRN Dry Eyes cholecalciferol (vitamin D3) 25 25 mcg PO DAILY 06/07/23 06/07/23 History mcg (1,000 unit) capsule (Vitamin D3) metformin 500 mg tablet,extended 500 mg PO BID 06/07/23 06/07/23 History release 24 hr omega-3 fatty acids 1,000 mg 1,000 mg PO DAILY 06/07/23 06/07/23 History capsule sucralfate 1 gram tablet 1 g PO BID PRN Heartburn 06/07/23 06/07/23 History torsemide 20 mg tablet 10 mg PO QAM 06/07/23 06/07/23 History Patient History Medical History Acute and chronic respiratory failure with hypoxia 2018 2/2 influenza Allergic rhinitis Asthma Chronic obstructive pulmonary disease Follows with [facility] ([facility]onz[facility] Arizmendi) Degenerative joint disease Diabetes Diverticulosis of colon Esophageal spasm Generalized anxiety disorder GERD (gastroesophageal reflux disease) Gynecomastia, male Migraine headache hx Obesity Sensorineural hearing loss (SNHL) of left ear with restricted hearing of right ear Sinus pressure Sleep apnea c pap. Pt reports full compliance. Tennis elbow syndrome Tinnitus, bilateral Vertigo Surgical History H/O colonoscopy H/O rotator cuff surgery right and left H/O sinus surgery History of carpal tunnel release of both wrists History of esophagogastroduodenoscopy (EGD) History of left knee replacement History of right knee surgery S/P trigger finger release Status post right knee replacement Status post right partial knee replacement Family History Sister Diabetes Hypertension Brother Hypertension Mother Hypertension Myocardial infarction Heart disease Stroke Father Hypertension Myocardial infarction Stroke Denies family history of Ovarian cancer Prostate cancer Breast cancer Colorectal cancer Social History Smoking Status: Never smoker Tobacco Type: Cigarettes Age Started Using Tobacco: 9; Age Quit Using Tobacco: 16; packs per day: 1; Cigarettes Per Day: was social; Second Hand Exposure: Yes; Do You Dip or Chew Tobacco: No; Hx Alcohol Use: Yes Alcohol type: beer Alcohol Intake Frequency: Monthly or Less Alcohol Intake Frequency 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 How many Children do You have: 3 Other Information That Helps Us Care for You: No Feels Safe at Home: Yes Safety Concerns: Feels Safe At This Time Childhood Exposure to Second-Hand Smoke: No Diet: low carbohydrate and low salt caffeine: Yes (coffee daily, tea and soda three times a week ) Dental Care, Regularly: No Physical Activity Frequency: Does not Exercise Physical Activity Frequency Comment: active lifestyle Seatbelt Use: always Sunscreen Use: No Do you think of yourself as: straight/heterosexual Assistive Devices: Denture - Upper and Hearing Aid - Bilateral Review of Systems Review of Systems: All systems reviewed & are unremarkable except as noted in HPI & below Physical Exam Constitutional: WD/WN, vitals as above no acute distress and not ill appearing Eyes: PERRL, conjunctivae normal, anicteric sclerae EOM intact bilaterally ENMT: external ear and nose normal, oropharynx normal Ears: no hearing impairment Neck: trachea midline, no thyromegaly Respiratory: normal respiratory effort; no respiratory distress and does not use accessory muscles Cardiovascular: Rate/Rhythm: regular rate and regular rhythm Gastrointestinal (Abdomen): normal bowel sounds, soft, nontender, no hepatosplenomegaly Skin: no rashes, warm and dry Psychiatric: Orientation: alert, oriented x 3 and cooperative Results & Data Vital Signs (Past 12 Hours) Vital Signs Temp Pulse Pulse Resp BP Pulse Ox O2 Del Method 06/08/23 08:10 56 L 18 141/72 H 93 Room Air 06/08/23 07:20 55 L 06/08/23 03:19 36.3 C L 55 L 18 133/71 93 Room Air 06/07/23 22:44 57 L 06/07/23 23:34 36.6 C 57 L 18 121/64 93 Room Air 06/07/23 21:34 36.6 C 62 16 130/75 94 Room Air PG Care Time/CCT Total # of Minutes Spent Total Time Spent with Patient: Total time spent is greater than 50% in coordination of care (as documented) at patient's floor/unit and/or counseling patient: Coding Level of Care Code 72955 INT INP/OBS CARE 75MIN Diagnoses Common bile duct obstruction K83.1 Type 2 diabetes mellitus E11.9 Sleep apnea G47.30 Hypertension I10 Hypertension type: essential hypertension Chronic obstructive pulmonary disease J44.9 (4) Hypertension Hypertension type: essential hypertension Qualified Code(s): I10 - Essential (primary) hypertension
--- NOTE | 2023-06-08 09:50 | Gastrointestinal Consultation ---
Supervising physician's note Case discussed with Jannet Mixon NP, chart reviewed patient seen and examined [place] man with cholestatic liver enzymes and dilated biliary system on MRCP. Has been having episodes of rigors and pain intermittently over the past several weeks He is jaundiced but otherwise exam is okay Agree with plans for biliary workup as per Dr. Perkins. Nothing further to add from my standpoint I have spent 20 minutes discrete time with record review, case discussion and visit with patient and spouse Harry Self Jr, MD, FAC Date of Consultation June 08, 2023 Assessment & Plan (1) Elevated LFTs: Elevated LFTs: Patient presented to the emergency department complaining of vomiting, jaundice with elevated liver function testing. Total bilirubin 7.0 on admission now 4.6, AST 106 on admission, now 65, ALT on admission was 217 at 153, alkaline phosphatase 360 now 239. Abnormal gallbladder imaging: Gallbladder ultrasound 06/07/2023 demonstrated marked extra and moderate intrahepatic biliary ductal dilatation with moderate gallbladder distention and borderline gallbladder wall thickening without evidence of gallstones. MRCP 06/08/2023 demonstrated dilation of the common bile duct but unable to exclude ampullary lesion or stricture, recommend consideratio n of ERCP. Patient has been evaluated by general surgery today who recommends ERCP prior to cholecystectomy. [facility] plans to perform ERCP today if schedule allows or on 06/09/2023. Will maintain npo today in anticipation of ERCP. Case reviewed with Dr. Self. Please refer to supervising physician addendum for further recommendations. I have spent 30 minutes of discrete time performing the activities of this visit which include but are not limited to review of the medical record, obtaining a history, physical exam, coordinating care, and entering information in the electronic record. (2) Common bile duct obstruction: History of Present Illness Attending Physician: Mark Melendez MD History of Present Illness Patient is a pleasant 77-year-old male with past medical history to include obstructive sleep apnea, asthma, type 2 diabetes, history of diastolic heart failure, hypertension tension who presented to the emergency department with complaints of vomiting and was found to have elevated LFTs and abnormal gallb ladder ultrasound. He was subsequently admitted for further evaluation. The patient is known to the GI service as I follow with him as an outpatient. He reports that he has been experiencing nausea intermittently over the last 3 days as well as epigastric pain which is sharp and stabbing in nature. Denies specific bowel habit changes including diarrhea or constipation. No fever or chills. No melena or hematochezia. His does note that she felt that he was jaundiced particularly when looking at bilateral sclera. Allergies Allergy/AdvReac Type Severity Reaction Status Date / Time erythromycin base AdvReac Intermediate GI UPSET Verified 06/07/23 16:47 Iodinated Contrast Media AdvReac Intermediate elevated Verified 06/07/23 16:47 creatinine meperidine AdvReac Intermediate gi upset Verified 06/07/23 16:47 morphine AdvReac Intermediate n/v Verified 06/07/23 16:47 codeine AdvReac Mild NAUSEA Verified 06/07/23 16:47 Home Medications Medication Instructions Recorded Confirmed Type ascorbate calcium (vitamin C) 500 500 mg PO QAM 07/05/19 06/07/23 History mg tablet fexofenadine 180 mg tablet 180 mg PO QAM 08/06/19 06/07/23 History guaifenesin 600 mg tablet, 600 mg PO Q12H 08/06/19 06/07/23 History extended release 12 hr multivitamin 1 tab PO QAM 11/27/19 06/07/23 History cyclosporine 0.05 % eye drops in a 1 drops ophthalmic (eye) BID #30 ea 06/10/20 06/07/23 Rx dropperette vitamin B complex 1 cap PO QAM 08/14/20 06/07/23 History coenzyme Q10 100 mg tablet 100 mg PO QAM 08/19/20 06/07/23 History antiarthritic combination no.2 900 900 mg PO BID 03/03/21 06/07/23 History mg tablet (glucosamine-chondroitin) aspirin 81 mg tablet,delayed 81 mg PO DAILY #30 tabs 02/10/22 06/07/23 Rx release nystatin 500,000 unit tablet 500,000 unit PO TID #270 tabs 03/18/22 06/07/23 Rx montelukast 10 mg tablet 10 mg PO QPM 10/13/22 06/07/23 History (Singulair) pantoprazole 40 mg tablet,delayed 40 mg PO DAILY 10/14/22 06/07/23 History release (Protonix) potassium chloride 20 mEq 20 meq PO DAILY #90 tabs 01/19/23 06/07/23 Rx tablet,extended release doxazosin 2 mg tablet 2 mg PO BID #180 tabs 02/08/23 06/07/23 Rx amlodipine 5 mg tablet 5 mg PO DAILY #90 tabs 02/16/23 06/07/23 Rx valsartan 160 mg tablet 160 mg PO BID #180 tabs 03/15/23 06/07/23 Rx carvedilol 25 mg tablet 25 mg PO BID #180 tabs 04/21/23 06/07/23 Rx blood-glucose meter (OneTouch #1 ea 04/24/23 04/24/23 Rx Verio Flex Start kit) blood sugar diagnostic (OneTouch #50 ea 04/27/23 Rx Verio test strips) lancets 30 gauge (OneTouch Delica #100 ea 04/27/23 Rx Plus Lancet) semaglutide 3 mg tablet (Rybelsus) 3 mg PO DAILY 30 days #30 tabs 05/16/23 06/07/23 Rx alprazolam 0.5 mg tablet (Xanax) 0.5 mg PO QPM #30 tabs 05/31/23 06/07/23 Rx budesonide-formoterol HFA 160 1 inh inhalation BID 06/07/23 06/07/23 History mcg-4.5 mcg/actuation aerosol inhaler (Symbicort) calcium citrate 250 mg 1 tab PO BID 06/07/23 06/07/23 History calcium-vitamin D3 5 mcg (200 unit) tablet carboxymethylcellulose sodium 0.5 1 drp ophthalmic (eye) DIRECTED 06/07/23 06/07/23 History % eye drops (Refresh Tears) PRN Dry Eyes cholecalciferol (vitamin D3) 25 25 mcg PO DAILY 06/07/23 06/07/23 History mcg (1,000 unit) capsule (Vitamin D3) metformin 500 mg tablet,extended 500 mg PO BID 06/07/23 06/07/23 History release 24 hr omega-3 fatty acids 1,000 mg 1,000 mg PO DAILY 06/07/23 06/07/23 History capsule sucralfate 1 gram tablet 1 g PO BID PRN Heartburn 06/07/23 06/07/23 History torsemide 20 mg tablet 10 mg PO QAM 06/07/23 06/07/23 History Patient History Medical History Acute and chronic respiratory failure with hypoxia 20172 influenza Allergic rhinitis Asthma Chronic obstructive pulmonary disease Follows with [facility] (Gonzalo Arizmendi) Degenerative joint disease Diabetes Diverticulosis of colon Esophageal spasm Generalized anxiety disorder GERD (gastroesophageal reflux disease) Gynecomastia, male Migraine headache hx Obesity Sensorineural hearing loss (SNHL) of left ear with restricted hearing of right ear Sinus pressure Sleep apnea c pap. Pt reports full compliance. Tennis elbow syndrome Tinnitus, bilateral Vertigo Surgical History H/O colonoscopy H/O rotator cuff surgery right and left H/O sinus surgery History of carpal tunnel release of both wrists History of esophagogastroduodenoscopy (EGD) History of left knee replacement History of right knee surgery S/P trigger finger release Status post right knee replacement Status post right partial knee replacement Family History Sister Diabetes Hypertension Brother Hypertension Mother Hypertension Myocardial infarction Heart disease Stroke Father Hypertension Myocardial infarction Stroke Denies family history of Ovarian cancer Prostate cancer Breast cancer Colorectal cancer Social History Smoking Status: Never smoker Tobacco Type: Cigarettes Age Started Using Tobacco: 9; Age Quit Using Tobacco: 16; packs per day: 1; Cigarettes Per Day: was social; Second Hand Exposure: Yes; Do You Dip or Chew Tobacco: No; Hx Alcohol Use: Yes Alcohol type: beer Alcohol Intake Frequency: Monthly or Less Alcohol Intake Frequency 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 How many Children do You have: 3 Other Information That Helps Us Care for You: No Feels Safe at Home: Yes Safety Concerns: Feels Safe At This Time Childhood Exposure to Second-Hand Smoke: No Diet: low carbohydrate and low salt caffeine: Yes (coffee daily, tea and soda three times a week ) Dental Care, Regularly: No Physical Activity Frequency: Does not Exercise Physical Activity Frequency Comment: active lifestyle Seatbelt Use: always Sunscreen Use: No Do you think of yourself as: straight/heterosexual Assistive Devices: Denture - Upper and Hearing Aid - Bilateral Review of Systems Review of Systems: All systems reviewed & are unremarkable except as noted in Subjective Physical Exam Constitutional: WD/WN, vitals as above Eyes: + scleral abnormality (jaundice sclera bilaterally) Neck: trachea midline, no thyromegaly Respiratory: normal respiratory effort, lungs clear to auscultation Cardiovascular: RRR, no murmur, no edema Gastrointestinal (Abdomen): normal bowel sounds, soft, nontender, no hepatosplenomegaly Musculoskeletal: no cyanosis or clubbing, extremities motor strength 5/5 Skin: no rashes, warm and dry Neurologic: PERRL, EOMI, accommodation nl, no face palsy, no dysarthria Psychiatric: A+Ox3, euthymic affect Results & Data Vital Signs (Past 12 Hours) Vital Signs Temp Pulse Pulse Resp BP Pulse Ox O2 Del Method 06/08/23 08:10 56 L 18 141/72 H 93 Room Air 06/08/23 07:20 55 L 06/08/23 03:19 36.3 C L 55 L 18 133/71 93 Room Air 06/07/23 22:44 57 L 06/07/23 23:34 36.6 C 57 L 18 121/64 93 Room Air Laboratory Results Laboratory Results - last 24 hr 06/07/23 06/07/23 06/07/23 15:04 15:04 15:04 WBC 5.55 RBC 4.42 L Hgb 13.9 L Hct 38.8 L MCV 87.8 MCH 31.4 MCHC 35.8 RDW Std Deviation 39.5 RDW Coeff of Joshua 12.4 Plt Count 209 MPV 10.4 Immature Gran % (Auto) 0.7 Neut % (Auto) 92.1 Lymph % (Auto) 5.6 [place] % (Auto) 0.7 Eos % (Auto) 0.7 Baso % (Auto) 0.2 Neut # (Auto) 5.11 Lymph # (Auto) 0.31 L [place] # (Auto) 0.04 L Eos # (Auto) 0.04 Baso # (Auto) 0.01 Immature Gran # (Auto) 0.04 Toxic Vacuolation 2+ Sodium 131 L Potassium 3.6 Chloride 95 L Carbon Dioxide 24 Anion Gap 12 H BUN 15 Creatinine 1.08 Est Cr Clr Drug Dosing Not Reportable Est GFR ( Amer) 75.8 Est GFR (Non-Af Amer) 65.4 BUN/Creatinine Ratio 13.9 Glucose 138 H POC Glucose Lactate Calcium 9.8 Magnesium 1.4 L Total Bilirubin 7.0 H Direct Bilirubin 4.6 H AST 106 H ALT 217 H Alkaline Phosphatase 360 H Troponin I High Sens 22.0 H Total Protein 7.7 Albumin 4.1 Globulin Albumin/Globulin Ratio Lipase Procalcitonin 1.41 H Urine Color Urine Appearance Urine pH Ur Specific Avera Urine Protein Urine Glucose (UA) Urine Ketones Urine Blood Urine Nitrite Urine Bilirubin Urine Urobilinogen Ur Leukocyte Esterase Urine WBC (Auto) Urine RBC (Auto) U Hyaline Cast (Auto) U Epithel Cells (Auto) Urine Bacteria (Auto) SARS-CoV-2, RNA, NAAT 06/07/23 06/07/23 06/07/23 15:04 15:12 15:16 WBC RBC Hgb Hct MCV MCH MCHC RDW Std Deviation RDW Coeff of Joshua Plt Count MPV Immature Gran % (Auto) Neut % (Auto) Lymph % (Auto) [place] % (Auto) Eos % (Auto) Baso % (Auto) Neut # (Auto) Lymph # (Auto) [place] # (Auto) Eos # (Auto) Baso # (Auto) Immature Gran # (Auto) Toxic Vacuolation Sodium Potassium Chloride Carbon Dioxide Anion Gap BUN Creatinine Est Cr Clr Drug Dosing Est GFR ( Amer) Est GFR (Non-Af Amer) BUN/Creatinine Ratio Glucose POC Glucose 157 H Lactate 3.1 H* Calcium Magnesium Total Bilirubin Direct Bilirubin AST ALT Alkaline Phosphatase Troponin I High Sens Total Protein Albumin Globulin Albumin/Globulin Ratio Lipase 12 Procalcitonin Urine Color Urine Appearance Urine pH Ur Specific Avera Urine Protein Urine Glucose (UA) Urine Ketones Urine Blood Urine Nitrite Urine Bilirubin Urine Urobilinogen Ur Leukocyte Esterase Urine WBC (Auto) Urine RBC (Auto) U Hyaline Cast (Auto) U Epithel Cells (Auto) Urine Bacteria (Auto) SARS-CoV-2, RNA, NAAT 06/07/23 06/07/23 06/07/23 15:16 16:15 17:15 WBC RBC Hgb Hct MCV MCH MCHC RDW Std Deviation RDW Coeff of Joshua Plt Count MPV Immature Gran % (Auto) Neut % (Auto) Lymph % (Auto) [place] % (Auto) Eos % (Auto) Baso % (Auto) Neut # (Auto) Lymph # (Auto) [place] # (Auto) Eos # (Auto) Baso # (Auto) Immature Gran # (Auto) Toxic Vacuolation Sodium Potassium Chloride Carbon Dioxide Anion Gap BUN Creatinine Est Cr Clr Drug Dosing Est GFR ( Amer) Est GFR (Non-Af Amer) BUN/Creatinine Ratio Glucose POC Glucose Lactate 2.7 H* Calcium Magnesium Total Bilirubin Direct Bilirubin AST ALT Alkaline Phosphatase Troponin I High Sens Total Protein Albumin Globulin Albumin/Globulin Ratio Lipase Procalcitonin Urine Color Dark Yellow Urine Appearance Clear Urine pH 5.0 Ur Specific [place]vera 1.009 Urine Protein 2+ H Urine Glucose (UA) Negative Urine Ketones Negative Urine Blood Negative Urine Nitrite Negative Urine Bilirubin 1+ H Urine Urobilinogen Negative Ur Leukocyte Esterase Negative Urine WBC (Auto) 0 Urine RBC (Auto) 0-4 U Hyaline Cast (Auto) 1-5 U Epithel Cells (Auto) 0-5 Urine Bacteria (Auto) Negative SARS-CoV-2, RNA, NAAT NEGATIVE 06/07/23 06/07/23 06/07/23 19:48 21:06 21:12 WBC RBC Hgb Hct MCV MCH MCHC RDW Std Deviation RDW Coeff of Joshua Plt Count MPV Immature Gran % (Auto) Neut % (Auto) Lymph % (Auto) [place] % (Auto) Eos % (Auto) Baso % (Auto) Neut # (Auto) Lymph # (Auto) [place] # (Auto) Eos # (Auto) Baso # (Auto) Immature Gran # (Auto) Toxic Vacuolation Sodium Potassium Chloride Carbon Dioxide Anion Gap BUN Creatinine Est Cr Clr Drug Dosing Est GFR ( Amer) Est GFR (Non-Af Amer) BUN/Creatinine Ratio Glucose POC Glucose 186 H 206 H Lactate Calcium Magnesium Total Bilirubin Direct Bilirubin AST ALT Alkaline Phosphatase Troponin I High Sens 23.3 H Total Protein Albumin Globulin Albumin/Globulin Ratio Lipase Procalcitonin Urine Color Urine Appearance Urine pH Ur Specific Avera Urine Protein Urine Glucose (UA) Urine Ketones Urine Blood Urine Nitrite Urine Bilirubin Urine Urobilinogen Ur Leukocyte Esterase Urine WBC (Auto) Urine RBC (Auto) U Hyaline Cast (Auto) U Epithel Cells (Auto) Urine Bacteria (Auto) SARS-CoV-2, RNA, NAAT 06/08/23 06/08/23 06/08/23 01:12 03:28 03:28 WBC 13.11 H RBC 3.69 L Hgb 11.7 L Hct 33.2 L MCV 90.0 MCH 31.7 MCHC 35.2 RDW Std Deviation 41.1 RDW Coeff of Joshua 12.6 Plt Count 163 MPV 10.3 Immature Gran % (Auto) 0.7 Neut % (Auto) 80.7 Lymph % (Auto) 10.8 [place] % (Auto) 6.8 Eos % (Auto) 0.8 Baso % (Auto) 0.2 Neut # (Auto) 10.59 H Lymph # (Auto) 1.42 [place] # (Auto) 0.89 H Eos # (Auto) 0.10 Baso # (Auto) 0.02 Immature Gran # (Auto) 0.09 Toxic Vacuolation Sodium 133 L Potassium 3.8 Chloride 100 Carbon Dioxide 25 Anion Gap 8 BUN 12 Creatinine 0.95 Est Cr Clr Drug Dosing 72.0 Est GFR ( Amer) 88.5 Est GFR (Non-Af Amer) 76.4 BUN/Creatinine Ratio 12.6 Glucose 142 H POC Glucose 146 H Lactate Calcium 9.0 Magnesium 2.1 Total Bilirubin 4.6 H Direct Bilirubin AST 65 H ALT 153 H Alkaline Phosphatase 239 H Troponin I High Sens Total Protein 6.3 Albumin 3.4 Globulin 2.9 Albumin/Globulin Ratio 1.2 Lipase Procalcitonin Urine Color Urine Appearance Urine pH Ur Specific Avera Urine Protein Urine Glucose (UA) Urine Ketones Urine Blood Urine Nitrite Urine Bilirubin Urine Urobilinogen Ur Leukocyte Esterase Urine WBC (Auto) Urine RBC (Auto) U Hyaline Cast (Auto) U Epithel Cells (Auto) Urine Bacteria (Auto) SARS-CoV-2, RNA, NAAT 06/08/23 06/08/23 06/08/23 03:28 05:25 09:31 WBC RBC Hgb Hct MCV MCH MCHC RDW Std Deviation RDW Coeff of Joshua Plt Count MPV Immature Gran % (Auto) Neut % (Auto) Lymph % (Auto) [place] % (Auto) Eos % (Auto) Baso % (Auto) Neut # (Auto) Lymph # (Auto) [place] # (Auto) Eos # (Auto) Baso # (Auto) Immature Gran # (Auto) Toxic Vacuolation Sodium Potassium Chloride Carbon Dioxide Anion Gap BUN Creatinine Est Cr Clr Drug Dosing Est GFR ( Amer) Est GFR (Non-Af Amer) BUN/Creatinine Ratio Glucose POC Glucose 88 Lactate Calcium Magnesium Total Bilirubin Direct Bilirubin AST ALT Alkaline Phosphatase Troponin I High Sens 16.3 D Pending Total Protein Albumin Globulin Albumin/Globulin Ratio Lipase Procalcitonin Urine Color Urine Appearance Urine pH Ur Specific Avera Urine Protein Urine Glucose (UA) Urine Ketones Urine Blood Urine Nitrite Urine Bilirubin Urine Urobilinogen Ur Leukocyte Esterase Urine WBC (Auto) Urine RBC (Auto) U Hyaline Cast (Auto) U Epithel Cells (Auto) Urine Bacteria (Auto) SARS-CoV-2, RNA, NAAT Diagnostic Findings Chest X-Ray 06/07/23 14:46 XR chest 1V portable HISTORY: 77 years-old Male Sepsis COMPARISON: 07/13/2021 TECHNIQUE: AP view of the chest FINDINGS: Cardiac silhouette is enlarged. No pneumothorax, pleural effusion, airspace consolidation or pulmonary edema. Degenerative changes of the shoulders and spine. IMPRESSION: No acute process. ACT 112: Negative or not required by law. The above report was generated using voice recognition software. It may contain grammatical, syntax or spelling errors. Electronically signed by: Wilfred Gaspar M.D. 06/07/2023 4:06 PM Chest/Abdomen X-ray 06/07/23 16:04 PA CHEST RADIOGRAPH AND UPRIGHT AND SUPINE AP RADIOGRAPHS OF THE ABDOMEN CLINICAL HISTORY: ruq epigastric pain COMPARISON STUDY: Chest CT July 13, 2021. Chest radiograph performed earlier today. CT of the abdomen and pelvis March 18, 2019. MRCP June 25, 2019. FINDINGS: No pneumothorax or pleural effusion is present. No consolidation to suggest pneumonia. Cardiomediastinal silhouette is unremarkable. There is no free air. The bowel gas pattern is normal. Pelvic calcifications favor phleboliths and vascular calcifications. IMPRESSION: 1. No free air or evidence of a bowel obstruction. 2. No acute cardiopulmonary findings. ACT 112: Negative or not required by law. Electronically signed by: Dannie Schultz M.D. 06/07/2023 6:39 PM Gallbladder Ultrasound 06/07/23 16:04 US gallbladder CLINICAL HISTORY: Right upper quadrant abdominal pain. COMPARISON STUDY: CT of the abdomen and pelvis March 18, 2019. MRCP June 25, 2019. 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 No additional hepatic lesions are identified. There is moderate intrahepatic biliary ductal dilatation. There is marked dilatation of the common bile duct, measuring approximately 2 cm in caliber. No common bile duct calculi are identified although the distal common bile duct is obscured. The gallbladder is moderately distended. Sonographic Haynes sign could not be assessed for in this patient. There is borderline gallbladder wall thickening. No pericholecystic fluid is noted. Pancreatic body is normal. Head and tail are partially obscured. Caliber of the pancreatic duct is at the upper limits of normal. There is no right hydronephrosis. IMPRESSION: 1. Marked extra and moderate intrahepatic biliary ductal dilatation. This raises possibility of a sonographically occult common bile duct calculus or mass. Correlation with obstructive liver function tests is recommended. MRCP could be obtained for further evaluation. 2. Moderate gallbladder distention and borderline gallbladder wall thickening. No gallstones. No convincing evidence for acute cholecystitis although a hepatobiliary scan could be obtained to exclude this possibility. 3. Partially obscured pancreas. ACT 112: Negative or not required by law. Electronically signed by: Dannie Schultz M.D. 06/07/2023 6:01 PM Cholangiopancreatography MRI 06/08/23 00:01 Exam(s): MRI MRCP EXAM: MR Abdomen Without Intravenous Contrast, MRCP Protocol CLINICAL HISTORY: Reason for exam: ?choledoco vs mass. TECHNIQUE: Multiplanar magnetic resonance images of the abdomen without intravenous contrast using MRCP protocol. COMPARISON: 06/25/2019. FINDINGS: Lower thorax: Trace bilateral pleural effusions. Mild bilateral lower lobe atelectasis. Mild cardiomegaly. Bile ducts: Distention of the common bile duct to the level of the spine without voiding with no tapering seen and therefore, cannot exclude an ampullary lesion or stricture. Gallbladder: Unremarkable. No stones. Liver: Fluid filled structure consistent with a cyst within the right liver lobe measuring 7.2 x 6.2 x 4.5 cm. Otherwise unremarkable liver. Pancreas: Unremarkable. Normal pancreatic duct. Spleen: Unremarkable. No splenomegaly. Adrenals: Unremarkable. No mass. Kidneys and ureters: Unremarkable. No hydronephrosis. Stomach and bowel: Distention of the colon bile duct up to maximum diameter of 15.6 mm in the cephalad portion. Just below this level there is a filling defect consistent with a common bile duct stone measuring 1. 4 cm. There is mild distention of the remainder of the distal common bile duct up to maximum 1.4 cm. Normal duodenal C-loop. IMPRESSION: 1. Dilatation of the common bile duct with a 1.4 cm in the mid outer aspect of the common bile duct as described. Cannot exclude ampullary lesion or stricture. If indicated, this findings may be further characterized with ERCP if clinically indicated. 2. 7.2 cm right liver lobe cyst. 3. Trace bilateral pleural effusions with mild bilateral lower lobe atelectasis. Electronically signed by: Letty Aceves MD 06/08/23 03:23 AM
--- NOTE | 2023-06-08 16:39 | XCELERA ---
[id number] \\[id number]
[2023-06-08] MEDS ORDERED: HEPARIN SOD 5,000 UNIT/0.5 ML VIAL SQ SCH (21:00)
--- NOTE | 2023-06-08 21:06 | Hospitalist Progress Note ---
Date of Service June 08, 2023 Assessment & Plan (1) Sepsis: Plan: source is the biliary tract - specifically he has clinical evidence of CBD obstruction based on MRCP, LFTs, etc. cannot rule out cholangitis given his rigors, leukocytosis, obstructive pattern elevated LFTs, and entire clinical picture. keep NPO. IVF. IV zosyn. [facility] has been consulted; ERCP has been planned to determine the cause of the obstruction. pain meds prn. follow blood cx's. (2) Common bile duct obstruction: Plan: 2nd to choledocholithiasis vs stricture vs mass vs other. [facility] or Monday. Keep NPO. Zosyn in the event of cholangitis. LFTs tomorrow am. pain meds prn. no evidence thus far of acute pancreatitis. (3) Gallstones: Plan: imaging studies with numerous gallstones. he could have choledocholithiasis - ERCP will determine such. ERCP findings will dictate whether his gall bladder will need removal by surgery; timing of such would need to be determined. repeat LFTs in am. zosyn to cover for possibility of a developing cholecystitis. (4) Elevated LFTs: Plan: 2nd to #2 repeat am (5) GERD (gastroesophageal reflux disease): Plan: cont PPI (6) Type 2 diabetes mellitus: Plan: cont lantus-novolog control is adequate a1c 8.8% in February 2023 repeat am (7) Chronic obstructive pulmonary disease: Plan: no flare at this time (8) Sleep apnea: Plan: CPAP (9) Hypertension: Plan: cont home meds remains hemodynamically stable (10) Generalized anxiety disorder: Plan: cont xanax HS scheduled - this is his home routine Plan DVT proph - heparin, but place on hold for upcoming ERCP updated at bedside briefly discussed care with talat Admission and Anticipated Discharge Date Admission Date: June 07, 2023 Subjective patient resting comfortably in bed states he had severe chills most of yesterday did not have them overnight no fever still with RUQ and high epigastric pain but not as severe as yesterday no nausea/emesis this am patient does report 20 pounds of weight loss last few months but this has been intentional he also has had fatigue and b/l knee pain during this time retrospectively he has been having similar episodes of RUQ pain for months on an intermittent basis at bedside during the visit Review of Systems Review of Systems: cv - no chest pain pulm - no dyspnea GI - no vomiting today; no lower abdominal pain; no vomiting Physical Exam Physical Exam: gen - NAD, pleasant eyes - scleral icterus present mouth - MMM neck - no JVD heart - RRR, s1 s2, no murmur lungs - CTA b/l abd - mild tenderness RUQ to deep palpation, otherwise soft, ND, BS+ ext - no edema, pulses 2+ b/l psych - a/o x 3 Results & Data Results & Data Vital Signs (Past 12 Hours) Vital Signs Temp Pulse Pulse Resp BP Pulse Ox O2 Del Method 06/08/23 19:33 36.5 C 56 L 18 138/77 95 Room Air 06/08/23 16:55 36.9 C 56 L 19 142/80 H 93 Room Air 06/08/23 16:40 58 L 06/08/23 12:27 36.6 C 54 L 19 140/70 94 Room Air Laboratory Results Laboratory Results - last 48 hr 06/07/23 06/07/23 06/07/23 15:04 15:04 15:04 WBC 5.55 RBC 4.42 L Hgb 13.9 L Hct 38.8 L MCV 87.8 MCH 31.4 MCHC 35.8 RDW Std Deviation 39.5 RDW Coeff of Joshua 12.4 Plt Count 209 MPV 10.4 Immature Gran % (Auto) 0.7 Neut % (Auto) 92.1 Lymph % (Auto) 5.6 [place] % (Auto) 0.7 Eos % (Auto) 0.7 Baso % (Auto) 0.2 Neut # (Auto) 5.11 Lymph # (Auto) 0.31 L [place] # (Auto) 0.04 L Eos # (Auto) 0.04 Baso # (Auto) 0.01 Immature Gran # (Auto) 0.04 Toxic Vacuolation 2+ Sodium 131 L Potassium 3.6 Chloride 95 L Carbon Dioxide 24 Anion Gap 12 H BUN 15 Creatinine 1.08 Est Cr Clr Drug Dosing Not Reportable Est GFR ( Amer) 75.8 Est GFR (Non-Af Amer) 65.4 BUN/Creatinine Ratio 13.9 Glucose 138 H POC Glucose Lactate Calcium 9.8 Magnesium 1.4 L Total Bilirubin 7.0 H Direct Bilirubin 4.6 H AST 106 H ALT 217 H Alkaline Phosphatase 360 H Troponin I High Sens 22.0 H Total Protein 7.7 Albumin 4.1 Globulin Albumin/Globulin Ratio Lipase Procalcitonin 1.41 H Urine Color Urine Appearance Urine pH Ur Specific [place] Urine Protein Urine Glucose (UA) Urine Ketones Urine Blood Urine Nitrite Urine Bilirubin Urine Urobilinogen Ur Leukocyte Esterase Urine WBC (Auto) Urine RBC (Auto) U Hyaline Cast (Auto) U Epithel Cells (Auto) Urine Bacteria (Auto) SARS-CoV-2, RNA, NAAT 06/07/23 06/07/23 06/07/23 15:04 15:12 15:16 WBC RBC Hgb Hct MCV MCH MCHC RDW Std Deviation RDW Coeff of Joshua Plt Count MPV Immature Gran % (Auto) Neut % (Auto) Lymph % (Auto) [place] % (Auto) Eos % (Auto) Baso % (Auto) Neut # (Auto) Lymph # (Auto) [place] # (Auto) Eos # (Auto) Baso # (Auto) Immature Gran # (Auto) Toxic Vacuolation Sodium Potassium Chloride Carbon Dioxide Anion Gap BUN Creatinine Est Cr Clr Drug Dosing Est GFR ( Amer) Est GFR (Non-Af Amer) BUN/Creatinine Ratio Glucose POC Glucose 157 H Lactate 3.1 H* Calcium Magnesium Total Bilirubin Direct Bilirubin AST ALT Alkaline Phosphatase Troponin I High Sens Total Protein Albumin Globulin Albumin/Globulin Ratio Lipase 12 Procalcitonin Urine Color Urine Appearance Urine pH Ur Specific [place] Urine Protein Urine Glucose (UA) Urine Ketones Urine Blood Urine Nitrite Urine Bilirubin Urine Urobilinogen Ur Leukocyte Esterase Urine WBC (Auto) Urine RBC (Auto) U Hyaline Cast (Auto) U Epithel Cells (Auto) Urine Bacteria (Auto) SARS-CoV-2, RNA, NAAT 06/07/23 06/07/23 06/07/23 15:16 16:15 17:15 WBC RBC Hgb Hct MCV MCH MCHC RDW Std Deviation RDW Coeff of Joshua Plt Count MPV Immature Gran % (Auto) Neut % (Auto) Lymph % (Auto) [place] % (Auto) Eos % (Auto) Baso % (Auto) Neut # (Auto) Lymph # (Auto) [place] # (Auto) Eos # (Auto) Baso # (Auto) Immature Gran # (Auto) Toxic Vacuolation Sodium Potassium Chloride Carbon Dioxide Anion Gap BUN Creatinine Est Cr Clr Drug Dosing Est GFR ( Amer) Est GFR (Non-Af Amer) BUN/Creatinine Ratio Glucose POC Glucose Lactate 2.7 H* Calcium Magnesium Total Bilirubin Direct Bilirubin AST ALT Alkaline Phosphatase Troponin I High Sens Total Protein Albumin Globulin Albumin/Globulin Ratio Lipase Procalcitonin Urine Color Dark Yellow Urine Appearance Clear Urine pH 5.0 Ur Specific [place] 1.009 Urine Protein 2+ H Urine Glucose (UA) Negative Urine Ketones Negative Urine Blood Negative Urine Nitrite Negative Urine Bilirubin 1+ H Urine Urobilinogen Negative Ur Leukocyte Esterase Negative Urine WBC (Auto) 0 Urine RBC (Auto) 0-4 U Hyaline Cast (Auto) 1-5 U Epithel Cells (Auto) 0-5 Urine Bacteria (Auto) Negative SARS-CoV-2, RNA, NAAT NEGATIVE 06/07/23 06/07/23 06/07/23 19:48 21:06 21:12 WBC RBC Hgb Hct MCV MCH MCHC RDW Std Deviation RDW Coeff of Joshua Plt Count MPV Immature Gran % (Auto) Neut % (Auto) Lymph % (Auto) [place] % (Auto) Eos % (Auto) Baso % (Auto) Neut # (Auto) Lymph # (Auto) [place] # (Auto) Eos # (Auto) Baso # (Auto) Immature Gran # (Auto) Toxic Vacuolation Sodium Potassium Chloride Carbon Dioxide Anion Gap BUN Creatinine Est Cr Clr Drug Dosing Est GFR ( Amer) Est GFR (Non-Af Amer) BUN/Creatinine Ratio Glucose POC Glucose 186 H 206 H Lactate Calcium Magnesium Total Bilirubin Direct Bilirubin AST ALT Alkaline Phosphatase Troponin I High Sens 23.3 H Total Protein Albumin Globulin Albumin/Globulin Ratio Lipase Procalcitonin Urine Color Urine Appearance Urine pH Ur Specific [place] Urine Protein Urine Glucose (UA) Urine Ketones Urine Blood Urine Nitrite Urine Bilirubin Urine Urobilinogen Ur Leukocyte Esterase Urine WBC (Auto) Urine RBC (Auto) U Hyaline Cast (Auto) U Epithel Cells (Auto) Urine Bacteria (Auto) SARS-CoV-2, RNA, NAAT 06/08/23 06/08/23 06/08/23 01:12 03:28 03:28 WBC 13.11 H RBC 3.69 L Hgb 11.7 L Hct 33.2 L MCV 90.0 MCH 31.7 MCHC 35.2 RDW Std Deviation 41.1 RDW Coeff of Joshua 12.6 Plt Count 163 MPV 10.3 Immature Gran % (Auto) 0.7 Neut % (Auto) 80.7 Lymph % (Auto) 10.8 [place] % (Auto) 6.8 Eos % (Auto) 0.8 Baso % (Auto) 0.2 Neut # (Auto) 10.59 H Lymph # (Auto) 1.42 [place] # (Auto) 0.89 H Eos # (Auto) 0.10 Baso # (Auto) 0.02 Immature Gran # (Auto) 0.09 Toxic Vacuolation Sodium 133 L Potassium 3.8 Chloride 100 Carbon Dioxide 25 Anion Gap 8 BUN 12 Creatinine 0.95 Est Cr Clr Drug Dosing 72.0 Est GFR ( Amer) 88.5 Est GFR (Non-Af Amer) 76.4 BUN/Creatinine Ratio 12.6 Glucose 142 H POC Glucose 146 H Lactate Calcium 9.0 Magnesium 2.1 Total Bilirubin 4.6 H Direct Bilirubin AST 65 H ALT 153 H Alkaline Phosphatase 239 H Troponin I High Sens Total Protein 6.3 Albumin 3.4 Globulin 2.9 Albumin/Globulin Ratio 1.2 Lipase Procalcitonin Urine Color Urine Appearance Urine pH Ur Specific [place] Urine Protein Urine Glucose (UA) Urine Ketones Urine Blood Urine Nitrite Urine Bilirubin Urine Urobilinogen Ur Leukocyte Esterase Urine WBC (Auto) Urine RBC (Auto) U Hyaline Cast (Auto) U Epithel Cells (Auto) Urine Bacteria (Auto) SARS-CoV-2, RNA, NAAT 06/08/23 06/08/23 06/08/23 03:28 05:25 09:31 WBC RBC Hgb Hct MCV MCH MCHC RDW Std Deviation RDW Coeff of Joshua Plt Count MPV Immature Gran % (Auto) Neut % (Auto) Lymph % (Auto) [place] % (Auto) Eos % (Auto) Baso % (Auto) Neut # (Auto) Lymph # (Auto) [place] # (Auto) Eos # (Auto) Baso # (Auto) Immature Gran # (Auto) Toxic Vacuolation Sodium Potassium Chloride Carbon Dioxide Anion Gap BUN Creatinine Est Cr Clr Drug Dosing Est GFR ( Amer) Est GFR (Non-Af Amer) BUN/Creatinine Ratio Glucose POC Glucose 88 Lactate Calcium Magnesium Total Bilirubin Direct Bilirubin AST ALT Alkaline Phosphatase Troponin I High Sens 16.3 D 13.8 Total Protein Albumin Globulin Albumin/Globulin Ratio Lipase Procalcitonin Urine Color Urine Appearance Urine pH Ur Specific [place] Urine Protein Urine Glucose (UA) Urine Ketones Urine Blood Urine Nitrite Urine Bilirubin Urine Urobilinogen Ur Leukocyte Esterase Urine WBC (Auto) Urine RBC (Auto) U Hyaline Cast (Auto) U Epithel Cells (Auto) Urine Bacteria (Auto) SARS-CoV-2, RNA, NAAT 06/08/23 06/08/23 06/08/23 11:55 14:52 16:24 WBC RBC Hgb Hct MCV MCH MCHC RDW Std Deviation RDW Coeff of [place] Plt Count MPV Immature Gran % (Auto) Neut % (Auto) Lymph % (Auto) [place] % (Auto) Eos % (Auto) Baso % (Auto) Neut # (Auto) Lymph # (Auto) [place] # (Auto) Eos # (Auto) Baso # (Auto) Immature Gran # (Auto) Toxic Vacuolation Sodium Potassium Chloride Carbon Dioxide Anion Gap BUN Creatinine Est Cr Clr Drug Dosing Est GFR ( Amer) Est GFR (Non-Af Amer) BUN/Creatinine Ratio Glucose POC Glucose 131 H 143 H Lactate Calcium Magnesium Total Bilirubin Direct Bilirubin AST ALT Alkaline Phosphatase Troponin I High Sens 13.5 Total Protein Albumin Globulin Albumin/Globulin Ratio Lipase Procalcitonin Urine Color Urine Appearance Urine pH Ur Specific [place] Urine Protein Urine Glucose (UA) Urine Ketones Urine Blood Urine Nitrite Urine Bilirubin Urine Urobilinogen Ur Leukocyte Esterase Urine WBC (Auto) Urine RBC (Auto) U Hyaline Cast (Auto) U Epithel Cells (Auto) Urine Bacteria (Auto) SARS-CoV-2, RNA, NAAT 06/08/23 06/08/23 20:02 23:57 WBC RBC Hgb Hct MCV MCH MCHC RDW Std Deviation RDW Coeff of Joshua Plt Count MPV Immature Gran % (Auto) Neut % (Auto) Lymph % (Auto) [place] % (Auto) Eos % (Auto) Baso % (Auto) Neut # (Auto) Lymph # (Auto) [place] # (Auto) Eos # (Auto) Baso # (Auto) Immature Gran # (Auto) Toxic Vacuolation Sodium Potassium Chloride Carbon Dioxide Anion Gap BUN Creatinine Est Cr Clr Drug Dosing Est GFR ( Amer) Est GFR (Non-Af Amer) BUN/Creatinine Ratio Glucose POC Glucose 110 H 81 Lactate Calcium Magnesium Total Bilirubin Direct Bilirubin AST ALT Alkaline Phosphatase Troponin I High Sens Total Protein Albumin Globulin Albumin/Globulin Ratio Lipase Procalcitonin Urine Color Urine Appearance Urine pH Ur Specific [place] Urine Protein Urine Glucose (UA) Urine Ketones Urine Blood Urine Nitrite Urine Bilirubin Urine Urobilinogen Ur Leukocyte Esterase Urine WBC (Auto) Urine RBC (Auto) U Hyaline Cast (Auto) U Epithel Cells (Auto) Urine Bacteria (Auto) SARS-CoV-2, RNA, NAAT Diagnostic Findings blood cx's neg to date PG Care Time/CCT Total # of Minutes Spent Total Time Spent with Patient: Total time spent is greater than 50% in coordination of care (as documented) at patient's floor/unit and/or counseling patient: Coding Level of Care Code 15323 SUB INP/OBS CARE 2/35MIN Diagnoses Sepsis A41.9 Sepsis acute organ dysfunction status: unspecified Sepsis type: sepsis due to unspecified organism Common bile duct obstruction K83.1 Gallstones K80.20 Elevated LFTs R79.89 GERD (gastroesophageal reflux disease) K21.9 Type 2 diabetes mellitus E11.9 Chronic obstructive pulmonary disease J44.9 Sleep apnea G47.30 Hypertension I10 Hypertension type: essential hypertension Generalized anxiety disorder F41.1 (1) Sepsis Sepsis acute organ dysfunction status: unspecified Sepsis type: sepsis due to unspecified organism Qualified Code(s): A41.9 - Sepsis, unspecified organism (9) Hypertension Hypertension type: essential hypertension Qualified Code(s): I10 - Essential (primary) hypertension
[2023-06-09] MEDS: PIPERACILLIN/TAZOBACTAM 4.5 GM in DEXTROSE 5% 100 ML IV SCH ×3 (00:01→15:05)
[2023-06-09] MEDS ORDERED: Nursing to Pharmacy Communication SCH (04:15)
[2023-06-09 06:02] LABS: Basophils # (auto) 0.04 K/uL (0-0.2); Basophils % (auto) 0.5 %; Eosinophils # (auto) 0.27 K/uL (0-0.50); Eosinophils % (auto) 3.4 %; Hematocrit (blood only) 32.7 % (42.0-52.0); Hemoglobin 11.4 g/dl (14.0-18.0); Immature Granulocytes # (auto) 0.05 K/uL (0.01-0.20); Immature Granulocytes % (auto) 0.6 %; Lymphocytes % (auto) 25.2 %; Mean Corpuscular Hemoglobin 31.7 pg (25.0-34.0); Mean Corpuscular Hgb Conc 34.9 g/dL (32.0-36.0); Mean Corpuscular Volume 90.8 fL (80.0-100.0); Mean Platelet Volume 10.9 fL (9.4-12.4); Monocytes # (auto) 0.88 K/uL (0.11-0.59); Monocytes % (auto) 11.1 %; Neutrophils # (auto) 4.71 K/uL (1.40-6.50); Neutrophils % (auto) 59.2 %; Platelet Count 168 K/uL (130-400); RDW Coefficient of Variation 12.9 % (11.5-14.5); RDW Standard Deviation 42.6 fL (36.4-46.3); White Blood Count 7.95 K/ul (4.8-10.8)
[2023-06-09 06:12] LABS: Albumin Globulin Ratio 1.2 (0.9-2); Albumin Level 3.4 gm/dl (3.4-5.0); BUN Creatinine Ratio 8.1 (10-20); Calcium 8.5 mg/dl (8.6-10.3); Creatinine Clr Calc Pharmacy 80.9 ml/min; Est GFR (African American) 96.3 ml/min; Est GFR (Non-African American) 83.1 ml/min; Globulin 2.9 gm/dl (2.5-4.0); Potassium 3.5 mmol/L (3.5-5.1); Total Protein 6.3 gm/dl (6.0-8.3)
[2023-06-09] MEDS: INSULIN ASPART PER UNIT CHARGE SC SCH ×3 (06:14→17:05)
[2023-06-09 06:57] LABS: INR 1.1 (0.9-1.1); Prothrombin Time 11.6 Seconds (9.0-12.0)
[2023-06-09 07:48] LABS: Estimated Average Glucose 177 mg/dl; Hemoglobin A1C 7.8 % (4.5-5.6)
--- NOTE | 2023-06-09 08:29 | Surgery Progress Note ---
Date of Service June 09, 2023 Assessment & Plan (1) Common bile duct obstruction: Plan: Clinically improving as well as lab work is improving. Scheduled for ERCP later today. If there is a stone they extract he could be discharged over the weekend and I will see him in the next 1 to 2 weeks to discuss outpatient cholecystectomy. If there is another etiology we will make recommendations accordingly. Patient recovering for the weekend if any questions or concerns. Admission and Anticipated Discharge Date Admission Date: June 07, 2023 Subjective Patient seen. Feeling better. Denies abdominal pain or nausea. He is hungry Physical Exam Constitutional: WD/WN, vitals as above no acute distress and not ill appearing Eyes: PERRL, conjunctivae normal, anicteric sclerae EOM intact bilaterally ENMT: external ear and nose normal, oropharynx normal Ears: no hearing impairment Neck: trachea midline, no thyromegaly Respiratory: normal respiratory effort; no respiratory distress and does not use accessory muscles Cardiovascular: Rate/Rhythm: regular rate and regular rhythm Gastrointestinal (Abdomen): normal bowel sounds, soft, nontender, no hepatosplenomegaly Skin: no rashes, warm and dry Psychiatric: Orientation: alert, oriented x 3 and cooperative Results & Data Vital Signs (Past 12 Hours) Vital Signs Temp Pulse Pulse Resp BP Pulse Ox Pulse Ox 06/09/23 07:04 37 C 64 18 156/87 H 94 06/09/23 02:48 36.7 C 65 18 145/75 H 95 06/08/23 22:00 59 L 06/08/23 21:04 95 06/08/23 22:43 36.8 C 65 18 138/76 94 O2 Del Method O2 Del Method 06/09/23 07:04 Room Air 06/09/23 02:48 Room Air 06/08/23 22:00 06/08/23 21:04 Room Air 06/08/23 22:43 Room Air PG Care Time/CCT Total # of Minutes Spent Total Time Spent with Patient: Total time spent is greater than 50% in coordination of care (as documented) at patient's floor/unit and/or counseling patient: Coding Level of Care Code 26635 SUB INP/OBS CARE 2/35MIN Diagnoses Common bile duct obstruction K83.1
[2023-06-09] MEDS: LANTUS PER UNIT CHARGE SQ SCH ×2 (08:30→19:58)
[2023-06-09] MEDS: carvediloL 25 MG TAB PO SCH ×2 (08:30→16:14)
[2023-06-09] MEDS: LACTATED RINGER'S 1,000 ML IV SCH (09:32)
--- NOTE | 2023-06-09 09:49 | Anesthesiology Consultation ---
Date of Service June 09, 2023 Assessment & Plan Chart Review Chart Review: Acceptable Risk for Surgery Consults Requested none ASA ASA3 Proposed Anesthesia Anesthesia Type: General Risk / Benefits Reviewed With: PT / POA / Parent / Guardian, Accepts Plan and Informed Consent Obtained Additional Comments: amilcar preop History Surgery Operation Date: 06/09/23 14:00 Proposed Procedures p Endoscopic Retrograde Cholangiopancreato - Davy Perkins MD Height/Weight Height: 5 ft 9 in Weight: 96 kg Allergies Allergy/AdvReac Type Severity Reaction Status Date / Time erythromycin base AdvReac Intermediate GI UPSET Verified 06/07/23 16:47 Iodinated Contrast Media AdvReac Intermediate elevated Verified 06/07/23 16:47 creatinine meperidine AdvReac Intermediate gi upset Verified 06/07/23 16:47 morphine AdvReac Intermediate n/v Verified 06/07/23 16:47 codeine AdvReac Mild NAUSEA Verified 06/07/23 16:47 Medications Home Medications Medication Instructions Recorded Confirmed Last Taken ascorbate calcium (vitamin C) 500 500 mg PO QAM 07/05/19 06/07/23 06/07/23 mg tablet fexofenadine 180 mg tablet 180 mg PO QAM 08/06/19 06/07/23 06/07/23 guaifenesin 600 mg tablet, 600 mg PO Q12H 08/06/19 06/07/23 06/07/23 08:00 extended release 12 hr multivitamin 1 tab PO QAM 11/27/19 06/07/23 06/07/23 cyclosporine 0.05 % eye drops in a 1 drops ophthalmic (eye) BID #30 ea 06/10/20 06/07/23 06/07/23 08:00 dropperette vitamin B complex 1 cap PO QAM 08/14/20 06/07/23 06/07/23 coenzyme Q10 100 mg tablet 100 mg PO QAM 08/19/20 06/07/23 06/07/23 antiarthritic combination no.2 900 900 mg PO BID 03/03/21 06/07/23 06/07/23 08:00 mg tablet (glucosamine-chondroitin) aspirin 81 mg tablet,delayed 81 mg PO DAILY #30 tabs 02/10/22 06/07/23 06/07/23 release nystatin 500,000 unit tablet 500,000 unit PO TID #270 tabs 03/18/22 06/07/23 06/07/23 08:00 montelukast 10 mg tablet 10 mg PO QPM 10/13/22 06/07/23 06/06/23 (Singulair) pantoprazole 40 mg tablet,delayed 40 mg PO DAILY 10/14/22 06/07/23 06/07/23 release (Protonix) potassium chloride 20 mEq 20 meq PO DAILY #90 tabs 01/19/23 06/07/23 06/07/23 tablet,extended release doxazosin 2 mg tablet 2 mg PO BID #180 tabs 02/08/23 06/07/23 06/07/23 08:00 amlodipine 5 mg tablet 5 mg PO DAILY #90 tabs 02/16/23 06/07/23 06/07/23 valsartan 160 mg tablet 160 mg PO BID #180 tabs 03/15/23 06/07/23 06/07/23 08:00 carvedilol 25 mg tablet 25 mg PO BID #180 tabs 04/21/23 06/07/23 06/07/23 08:00 blood-glucose meter (OneTouch #1 ea 04/24/23 04/24/23 Unknown Verio Flex Start kit) blood sugar diagnostic (OneTouch #50 ea 04/27/23 Unknown Verio test strips) lancets 30 gauge (OneTouch Delica #100 ea 04/27/23 Unknown Plus Lancet) semaglutide 3 mg tablet (Rybelsus) 3 mg PO DAILY 30 days #30 tabs 05/16/23 06/07/23 06/07/23 alprazolam 0.5 mg tablet (Xanax) 0.5 mg PO QPM #30 tabs 05/31/23 06/07/23 06/06/23 budesonide-formoterol HFA 160 1 inh inhalation BID 06/07/23 06/07/23 06/07/23 08:00 mcg-4.5 mcg/actuation aerosol inhaler (Symbicort) calcium citrate 250 mg 1 tab PO BID 06/07/23 06/07/23 06/07/23 08:00 calcium-vitamin D3 5 mcg (200 unit) tablet carboxymethylcellulose sodium 0.5 1 drp ophthalmic (eye) DIRECTED 06/07/23 06/07/23 Unknown % eye drops (Refresh Tears) PRN Dry Eyes cholecalciferol (vitamin D3) 25 25 mcg PO DAILY 06/07/23 06/07/23 06/07/23 mcg (1,000 unit) capsule (Vitamin D3) metformin 500 mg tablet,extended 500 mg PO BID 06/07/23 06/07/23 06/07/23 08:00 release 24 hr omega-3 fatty acids 1,000 mg 1,000 mg PO DAILY 06/07/23 06/07/23 06/07/23 capsule sucralfate 1 gram tablet 1 g PO BID PRN Heartburn 06/07/23 06/07/23 06/06/23 torsemide 20 mg tablet 10 mg PO QAM 06/07/23 06/07/23 06/07/23 Active Medications Generic Name Dose Route Start Last Admin Trade Name Freq PRN Reason Stop Dose Admin Alprazolam 0.5 mg 06/07/23 21:04 06/08/23 20:13 Alprazolam 0.5 Mg Tablet PO 07/07/23 21:03 0.5 mg QPM BRANDON Administration Amlodipine Besylate 5 mg 06/08/23 09:00 06/08/23 09:14 Amlodipine Besylate 5 Mg Tab PO 07/08/23 08:59 5 mg DAILY BRANDON Administration Artificial Tears 1 drops 06/07/23 21:29 06/08/23 01:16 Artificial Tears OP 07/07/23 21:28 1 drops QID PRN Administration Dryness Carvedilol 25 mg 06/07/23 22:35 06/08/23 16:06 Carvedilol 25 Mg Tab PO 07/07/23 22:34 25 mg BIDM BRANDON Administration Doxazosin Mesylate 2 mg 06/07/23 21:04 06/08/23 20:13 Doxazosin Mesylate Tab 2 Mg Tab PO 07/07/23 21:03 2 mg BID BRANDON Administration Fexofenadine HCl 180 mg 06/08/23 09:00 06/08/23 09:14 Fexofenadine Hcl 180 Mg Tab PO 07/08/23 08:59 180 mg QAM BRANDON Administration Fluticasone/Vilanterol 1 puffs 06/08/23 09:00 06/08/23 09:14 Fluticasone/Vilanterol 200/25mcg 14 Puffs/Inhaler INH 07/08/23 08:59 1 puffs DAILY BRANDON Administration Piperacillin Sod/Tazobactam 120 mls @ 30 mls/hr 06/07/23 21:00 06/09/23 08:12 Sod 4.5 gm/ Dextrose IV 06/11/23 20:59 30 mls/hr Q8H BRANDON Administration Protocol Lactated Ringer's 1,000 mls @ 80 mls/hr 06/07/23 21:04 06/09/23 09:32 Lr IV 07/07/23 21:03 80 mls/hr .[id number] BRANDON Administration Insulin Aspart 0 units 06/09/23 06:00 06/09/23 06:14 Insulin Aspart Per Unit Charge SC 07/09/23 05:59 Not Given Q6 BRANDON Insulin Glargine 10 units 06/07/23 21:00 06/08/23 20:14 Lantus Per Unit Charge SQ 07/07/23 20:59 10 units BID BRANDON Administration Montelukast Sodium 10 mg 06/07/23 21:04 06/08/23 20:14 Montelukast Sodium 10 Mg Tablet PO 07/07/23 21:03 10 mg QPM BRANDON Administration Pantoprazole Sodium 40 mg 06/08/23 09:00 06/08/23 09:14 Pantoprazole 40 Mg Tab PO 07/08/23 08:59 40 mg DAILY BRANDON Administration Potassium Chloride 20 meq 06/08/23 09:00 06/08/23 09:18 Potassium Chloride Crtab 20 Meq Tabcr PO 07/08/23 08:59 20 meq DAILY BRANDON Administration Valsartan 160 mg 06/07/23 21:04 06/08/23 20:14 Valsartan 80 Mg Tab PO 07/07/23 21:03 160 mg BID BRANDON Administration Vitamin B Complex 1 tab 06/08/23 09:00 06/08/23 09:14 Vitamin B Complex Tab PO 07/08/23 08:59 1 tab QAM BRANDON Administration Vitamin D 1,000 units 06/08/23 09:00 06/08/23 09:15 Cholecalciferol 1,000 Units 25 Mcg Tab PO 07/08/23 08:59 1,000 units DAILY BRANDON Administration NPO Date Last Intake of Fluids: 06/08/23 Time Last Intake of Fluids: 23:59 Date Last Intake of Solids: 06/08/23 Time Last Intake of Solids: 23:59 Past Medical History Medical History (Updated 06/09/23 @ 11:55 by Princess Saleh DO) Acute and chronic respiratory failure with hypoxia 12/08 influenza Allergic rhinitis Asthma Chronic obstructive pulmonary disease Follows with [facility] (Gonzalo Arizmendi) Degenerative joint disease Diabetes Diverticulosis of colon Esophageal spasm Generalized anxiety disorder GERD (gastroesophageal reflux disease) Gynecomastia, male Hypertension Migraine headache hx Obesity Papilloma of oropharynx Sensorineural hearing loss (SNHL) of left ear with restricted hearing of right ear Sinus pressure Sleep apnea c pap. Pt reports full compliance. Tennis elbow syndrome Tinnitus, bilateral Vertigo Exercise / Class Metabolic Activity II 4-5 Yardwork/Stairs/Walk up hill Past Family History Family History Sister Diabetes Hypertension Brother Hypertension Mother Hypertension Myocardial infarction Heart disease Stroke Father Hypertension Myocardial infarction Stroke Denies family history of Ovarian cancer Prostate cancer Breast cancer Colorectal cancer Past Surgical History Surgical History H/O colonoscopy H/O rotator cuff surgery right and left H/O sinus surgery History of carpal tunnel release of both wrists History of esophagogastroduodenoscopy (EGD) History of left knee replacement History of right knee surgery S/P trigger finger release Status post right knee replacement Status post right partial knee replacement Past Anesthesia History No Hx of Anesthesia Complications and No Family Hx of Anesthesia Complications History of PONV No Hx of PONV and No Hx of Motion Sickness Social History Smoking Status: Never smoker Smoking cigarettes per day: was social Do You Dip or Chew Tobacco: No Hx Alcohol Use: Yes Alcohol type: beer alcohol intake frequency: holidays/special occasions only Hx Substance Use: No substance use type: does not use Physical Exam Vital Signs Last Vital Signs Temp 37 C 06/09/23 07:04 Pulse 60 06/09/23 09:00 Resp 18 06/09/23 07:04 BP 156/87 H 06/09/23 07:04 Pulse Ox 94 06/09/23 07:04 O2 Del Method Room Air 06/09/23 07:04 ENMT Mouth: + dentition abnormality (bottom missing molars right side) and + dentures (upper); no TMJ abnormality Thyromental Distance: > or= 3.5 Finger Breadths Mallampati Class: II Neck normal visual inspection and trachea midline; neck extension not limited Respiratory normal respiratory effort Auscultation: + diminished lung sounds Cardiovascular Rate/Rhythm: regular rate and regular rhythm Heart Sounds: no murmur Vessels: + carotid bruit Musculoskeletal Spine: normal cervical ROM Extremities: full ROM of extremities Neurologic moves all extremities Psychiatric Orientation: alert and oriented x 3 Testing Laboratory Results 06/09/23 05:31 06/09/23 05:31 PT 11.6 Seconds (9.0-12.0) 06/09/23 05:31 INR 1.1 (0.9-1.1) 06/09/23 05:31 Hemoglobin A1c 7.8 % (4.5-5.6) H 06/09/23 05:31 Urine Color Dark Yellow 06/07/23 15:16 Urine Appearance Clear (Clear) 06/07/23 15:16 Urine pH 5.0 (4.5-7.5) 06/07/23 15:16 Ur Specific [place] 1.009 (1.000-1.030) 06/07/23 15:16 Urine Protein 2+ (Negative) H 06/07/23 15:16 Urine Glucose (UA) Negative (Negative) 06/07/23 15:16 Urine Ketones Negative (Negative) 06/07/23 15:16 Urine Nitrite Negative (Negative) 06/07/23 15:16 Ur Leukocyte Esterase Negative (Negative) 06/07/23 15:16 Urine WBC (Auto) 0 /hpf (0-5) 06/07/23 15:16 Urine RBC (Auto) 0-4 /hpf (0-4) 06/07/23 15:16 U Hyaline Cast (Auto) 1-5 /lpf (0-5) 06/07/23 15:16 U Epithel Cells (Auto) 0-5 /lpf (0-5) 06/07/23 15:16 Urine Bacteria (Auto) Negative (Negative) 06/07/23 15:16 06/07/23 16:43 Aerobic Blood Culture - Preliminary Blood No growth in Aerobic bottle after 24 hours. Anaerobic Blood Culture - Preliminary No growth in Anaerobic bottle after 24 hours. 06/07/23 15:04 Aerobic Blood Culture - Preliminary Blood No growth in Aerobic bottle after 24 hours. Anaerobic Blood Culture - Preliminary No growth in Anaerobic bottle after 24 hours. 06/09/23 06/08/23 05:59 23:57 POC Glucose 85 81 Electrocardiogram Date: 06/07/23 Findings: + NSR @ (1st degree AVB and LAFB @92bpm) Chest X-Ray Date: 06/07/23 Findings: + NAD Echocardiogram Date: 06/08/23 EF: 60-65% LV Function: normal RWMA: + none Valvular Disease: + no significant valvular disease RV dilation with NL sys fxn
[2023-06-09] MEDS ORDERED: HYDROmorphone INJ 1 MG/ML SYRINGE IV PRN (11:47)
[2023-06-09] MEDS ORDERED: LABETALOL HCL IV 5 MG/ML 20ML IV PRN (11:47)
[2023-06-09] MEDS ORDERED: fentaNYL citrate PF 100 MCG/2 ML VIAL IV PRN (11:47)
[2023-06-09] MEDS ORDERED: ePHEDrine sulfate 50 MG/ML AMP IV PRN (11:47)
[2023-06-09] MEDS ORDERED: ONDANSETRON INJ 2 MG/ML 2 ML VIAL IV PRN (11:47)
[2023-06-09] MEDS ORDERED: ATROPINE SULFATE 0.1 MG/ML 10ML SYR IV PRN (11:47)
[2023-06-09] MEDS ORDERED: ALBUT/IPRATROP 3MG/0.5MG NEB 3 ML VIAL INH PRN (11:47)
[2023-06-09] MEDS ORDERED: hydrALAZINE HCL 20 MG/ML VIAL ONE (12:08)
[2023-06-09] MEDS ORDERED: INDOMETHACIN 50 MG SUPP PR ONE (12:12)
[2023-06-09] MEDS ORDERED: ROCURONIUM BROMIDE 10 MG/ML 5 ML VIAL IV ONE (12:12)
[2023-06-09] MEDS ORDERED: LIDOCAINE 2% 2 ML VIAL/AMP(20MG/ML) INFIL ONE (12:12)
[2023-06-09] MEDS ORDERED: fentaNYL citrate PF 100 MCG/2 ML VIAL ONE (12:12)
[2023-06-09] MEDS ORDERED: PROPOFOL IV EMULSION 10 MG/ML 20 ML VIAL IV ONE ×2 (12:12→13:15)
[2023-06-09] MEDS ORDERED: LARYING-O-JET KIT (LTA) ONE (12:14)
[2023-06-09] MEDS ORDERED: ALBUT/IPRATROP 3MG/0.5MG NEB 3 ML VIAL NEB ONE (12:15)
--- NOTE | 2023-06-09 12:31 | History & Physical Bridge Note ---
Date of Service June 09, 2023 History & Physical Bridge Note I have examined the patient, reviewed the History & Physical and in the interval since the performance of the History & Physical I have noted the following changes of clinical significance: no changes noted EUS +/- ERCP Patient was explained in detail regarding risks, benefits, limitations and alternatives of the above endoscopic procedure. Risks of intravenous sedation used for procedure were also explained. Risks include, but not limited to per foration, bleeding, infection, respiratory distress, cardiac arrest and . Patient is also aware about the possibility of missed lesion. Patient's questions were answered. The patient verbalized understanding the information and agreed to undergo the procedure.
[2023-06-09] MEDS ORDERED: ONDANSETRON INJ 2 MG/ML 2 ML VIAL ONE (12:55)
[2023-06-09] MEDS ORDERED: ePHEDrine sulfate 50 MG/ML SYR ONE (13:21)
--- NOTE | 2023-06-09 13:38 | Operative Report ---
Post Operative Report Pre & Post Diagnosis Operation Date: 06/09/23 14:00 <No data on this case meets the specified criteria> I identified the patient and participated in the time-out.: Yes Procedure Operation Date: 06/09/23 14:00 <No data on this case meets the specified criteria> Surgeon Davy Perkins MD Slot Service Specialist None Estimated Blood Loss 0 Findings See Below (Large CBD stone removed, stents placed) Specimens None Description of Procedure EUS/ERCP I attest to the content of the Intraoperative Record and any orders documented therein. Any exceptions are noted below.
--- NOTE | 2023-06-09 14:00 | GI REPORT ---
Patient Name: Demond Connor Procedure Date: 06/09/2023 11:58 AM Date of : 1945 Admit Type: Inpatient Age: 77 Gender: Male Attending MD: Davy Perkins MD, Procedure: Upper GI endoscopy Providers: Davy Perkins MD Referring MD: Mark Melendez Indications: Abdominal pain Medicines: General Anesthesia Complications: No immediate complications. Estimated Blood Loss: Estimated blood loss: none. Procedure: Pre-Anesthesia Assessment: - Prior to the procedure, a History and Physical was performed, and patient medications, allergies and sensitivities were reviewed. The patient's tolerance of previous anesthesia was reviewed. - The risks and benefits of the procedure and the sedation options and risks were discussed with the patient. All questions were answered and informed consent was obtained. - Patient identification and proposed procedure were verified prior to the procedure by the physician and the nurse. The procedure was verified in the procedure room. - Pre-procedure physical examination revealed no contraindications to sedation. After obtaining informed consent, the endoscope was passed under direct vision. Throughout the procedure, the patient's blood pressure, pulse, and oxygen saturations were monitored continuously. The Endoscope was introduced through the mouth, and advanced to the second part of duodenum. The upper GI endoscopy was accomplished without difficulty. The patient tolerated the procedure well. Findings: The examined esophagus was normal. The entire examined stomach was normal. The duodenal bulb and second portion of the duodenum were normal. Impression: - Normal esophagus. - Normal stomach. - Normal duodenal bulb and second portion of the duodenum. - No specimens collected. Recommendation: - Perform an upper endoscopic ultrasound (UEUS). Davy Perkins MD 06/09/2023 2:00:16 PM This report has been signed electronically. Note Initiated On: 06/09/2023 11:58 AM Number of Addenda: 0 I attest to the content of the Intraoperative Record and orders documented therein, exceptions below {[id number]}
--- NOTE | 2023-06-09 14:03 | GI REPORT ---
Patient Name: Demond Connor Procedure Date: 06/09/2023 11:57 AM Date of : 1945 Admit Type: Inpatient Age: 77 Gender: Male Attending MD: Davy Perkins MD, Procedure: Upper EUS Providers: Davy Perkins MD Referring MD: Mark Melendez Indications: Elevated liver enzymes, Suspected choledocholithiasis Medicines: General Anesthesia Complications: No immediate complications. Estimated Blood Loss: Estimated blood loss: none. Procedure: Pre-Anesthesia Assessment: - Prior to the procedure, a History and Physical was performed, and patient medications, allergies and sensitivities were reviewed. The patient's tolerance of previous anesthesia was reviewed. - The risks and benefits of the procedure and the sedation options and risks were discussed with the patient. All questions were answered and informed consent was obtained. - Patient identification and proposed procedure were verified prior to the procedure by the physician and the nurse. The procedure was verified in the procedure room. - Pre-procedure physical examination revealed no contraindications to sedation. After obtaining informed consent, the endoscope was passed under direct vision. Throughout the procedure, the patient's blood pressure, pulse, and oxygen saturations were monitored continuously. The scope was introduced through the mouth, and advanced to the second part of duodenum. The upper EUS was accomplished without difficulty. The patient tolerated the procedure well. Findings: ENDOSONOGRAPHIC FINDING: : There was no sign of significant endosonographic abnormality in the ampulla. There was dilation in the common bile duct which measured up to 15 mm. One stone was visualized endosonographically in the common bile duct. The stone measured 14 mm in greatest dimension. The stone was round. It was hyperechoic and characterized by shadowing. There was no sign of significant endosonographic abnormality in the visualized portion of the liver. Homogeneous parenchyma was identified. There was no sign of significant endosonographic abnormality in the entire pancreas. The pancreatic duct measured up to 2 mm in diameter. Impression: - There was no sign of significant pathology in the ampulla. - There was dilation in the common bile duct which measured up to 15 mm. - One stone was visualized endosonographically in the common bile duct. - There was no evidence of significant pathology in the visualized portion of the liver. - There was no sign of significant pathology in the entire pancreas. - No specimens collected. Recommendation: - Perform an ERCP today. Davy Perkins MD 06/09/2023 2:03:10 PM This report has been signed electronically. Note Initiated On: 06/09/2023 11:57 AM Number of Addenda: 0 I attest to the content of the Intraoperative Record and orders documented therein, exceptions below {[id number]}
--- NOTE | 2023-06-09 14:17 | GI REPORT ---
Patient Name: Demond Connor Procedure Date: 06/09/2023 11:56 AM Date of : 1945 Admit Type: Inpatient Age: 77 Gender: Male Attending MD: Davy Perkins MD, Procedure: ERCP Providers: Davy Perkins MD Referring MD: Mark Melendez Indications: For therapy of bile duct stone(s) Medicines: General Anesthesia Complications: No immediate complications. Estimated Blood Loss: Estimated blood loss: none. Procedure: Pre-Anesthesia Assessment: - Prior to the procedure, a History and Physical was performed, and patient medications, allergies and sensitivities were reviewed. The patient's tolerance of previous anesthesia was reviewed. - The risks and benefits of the procedure and the sedation options and risks were discussed with the patient. All questions were answered and informed consent was obtained. - Patient identification and proposed procedure were verified prior to the procedure by the physician and the nurse. The procedure was verified in the procedure room. - Pre-procedure physical examination revealed no contraindications to sedation. After obtaining informed consent, the scope was passed under direct vision. Throughout the procedure, the patient's blood pressure, pulse, and oxygen saturations were monitored continuously. The Duodenoscope was introduced through the mouth, and advanced to the duodenum and used to inject contrast into the bile duct. The ERCP was accomplished without difficulty. The patient tolerated the procedure well. Findings: The handbag finisher film was normal. The esophagus was successfully intubated under direct vision. The scope was advanced to a normal major papilla in the descending duodenum without detailed examination of the pharynx, larynx and associated structures, and upper GI tract. The upper GI tract was grossly normal. A 0.025 inch x 270 cm angled Visiglide wire was passed into the ventral pancreatic duct. The ventral pancreatic duct was then deeply cannulated with the short-nosed traction sphincterotome. Contrast was injected. I personally interpreted the pancreatic duct images. A 0.025 inch x 270 cm angled Visiglide wire was passed into the biliary tree. The short-nosed traction sphincterotome was passed over the guidewire and the bile duct was then deeply cannulated. Contrast was injected. Opacification of the entire biliary tree was successful. The maximum diameter of the ducts was 15 mm. Biliary sphincterotomy was made with a monofilament traction (standard) sphincterotome using ERBE electrocautery. There was no post-sphincterotomy bleeding. Dilation of the common bile duct with a 10 mm balloon dilator was successful. The biliary tree was swept with a 15 mm balloon starting at the bifurcation. Sludge was swept from the duct. One stone was removed. No stones remained. Two 7 Fr by 7 cm plastic biliary stents with a single external pigtail and a single internal pigtail were placed into the common bile duct. Bile flowed through the stents. The stents were in good position. One 5 Fr by 9 cm uncovered metal pancreatic stent with a single external pigtail and no internal flaps was placed into the ventral pancreatic duct. Clear fluid flowed through the stent. The stent was in good position. Indomethacin 100 mg was given via suppository to decrease the risk of post-ERCP pancreatitis (PEP). A single 8 mm sessile polyp was found in the second portion of the duodenum adjacent to the Ampulla. Impression: - Choledocholithiasis was found. Complete removal was accomplished by biliary sphincterotomy and balloon extraction. - A single 8 mm duodenal polyp. - Two plastic biliary stents were placed into the common bile duct. - One uncovered metal pancreatic stent was placed into the ventral pancreatic duct. Recommendation: - Return patient to [facility] for ongoing care. - Repeat ERCP in 3 months to remove stent and EMR the duodenal polyp. - Follow up with General surgery for cholecystectomy Davy Perkins MD 06/09/2023 2:16:50 PM This report has been signed electronically. Note Initiated On: 06/09/2023 11:56 AM Number of Addenda: 0 I attest to the content of the Intraoperative Record and orders documented therein, exceptions below {[id number]}
[2023-06-09] MEDS: DOXAZosin MESYLATE TAB 2 MG TAB PO SCH ×2 (14:38→19:57)
[2023-06-09] MEDS: FLUTICASONE/VILANTEROL 200/25MCG 14 PUFFS/INHALER INH SCH (14:38)
[2023-06-09] MEDS: PANTOprazole 40 MG TAB PO SCH (14:39)
[2023-06-09] MEDS: POTASSIUM CHLORIDE CRTAB 20 MEQ TABCR PO SCH (14:39)
[2023-06-09] MEDS: CHOLECALCIFEROL 1,000 UNITS 25 MCG TAB PO SCH (14:39)
[2023-06-09] MEDS: VITAMIN B COMPLEX TAB PO SCH (14:39)
[2023-06-09] MEDS: VALSARTAN 80 MG TAB PO SCH ×2 (14:39→19:57)
[2023-06-09] MEDS: amLODIPine BESYLATE 5 MG TAB PO SCH (14:39)
[2023-06-09] MEDS: FEXOFENADINE HCL 180 MG TAB PO SCH (14:39)
[2023-06-09] MEDS ORDERED: GLYCOPYRROLATE 0.2 MG/ML VIAL ONE (14:49)
[2023-06-09] MEDS ORDERED: NEOSTIGMINE METHYLSULFATE 1 MG/ML 10ML VIAL ONE (14:49)
--- NOTE | 2023-06-09 15:57 | Anesthesiology Progress Note ---
Date of Service June 09, 2023 Anesthesia Post Procedure Vital Signs Vital Signs: Temp Pulse Pulse Pulse Resp BP Pulse Ox 06/09/23 14:30 36.3 C L 52 L 18 175/92 H 94 06/09/23 14:10 36.4 C L 55 L 16 163/79 H 94 06/09/23 14:00 60 18 162/83 H 94 06/09/23 13:50 36.0 C L 65 18 164/78 H 96 06/09/23 12:08 59 L 18 95 06/09/23 11:40 36.5 C 60 20 189/93 H 93 06/09/23 09:00 60 06/09/23 07:04 37 C 64 18 156/87 H 94 06/09/23 02:48 36.7 C 65 18 145/75 H 95 06/08/23 22:00 59 L 06/08/23 19:15 06/08/23 21:04 06/08/23 22:43 36.8 C 65 18 138/76 94 06/08/23 19:33 36.5 C 56 L 18 138/77 95 06/08/23 16:55 36.9 C 56 L 19 142/80 H 93 06/08/23 16:40 58 L Pulse Ox O2 Del Method O2 Del Method 06/09/23 14:30 06/09/23 14:10 Room Air 06/09/23 14:00 Room Air 06/09/23 13:50 Room Air 06/09/23 12:08 Room Air 06/09/23 11:40 Room Air 06/09/23 09:00 06/09/23 07:04 Room Air 06/09/23 02:48 Room Air 06/08/23 22:00 06/08/23 19:15 Room Air 06/08/23 21:04 95 Room Air 06/08/23 22:43 Room Air 06/08/23 19:33 Room Air 06/08/23 16:55 Room Air 06/08/23 16:40 Transfer of Care Handoff Completed per policy Notes Mental Status: alert / awake / arousable and participated in evaluation Patient Amnestic to Procedure: Yes Nausea / Vomiting: adequately controlled Pain: adequately controlled Airway Patency, RR, SpO2: stable & adequate BP & HR: stable & adequate Hydration State: stable & adequate Anesthetic Complications: no major complications apparent and Pt Satisfied with anesthetic care
--- NOTE | 2023-06-09 17:12 | Fluoroscopy Report ---
[place] ERCP biliary ductal CLINICAL HISTORY: EXPLORE DUCTS COMPARISON STUDY: 06/08/2023 FLUOROSCOPY TIME: 1 minute 7 seconds FLUOROSCOPY IMAGES: 11 EXPOSURE DOSE: 67.1 mGy FINDINGS: Endoscope within the duodenum. Cannulation of the common bile and pancreatic ducts. Retrogr [place] injection of contrast into the dilated common bile duct with balloon sweep. Intrahepatic and extr ahepatic biliary ductal dilation. Status post placement of pancreatic and common bile duct stents. IMPRESSION: Fluoroscopic assistance as above. ACT 112: Negative or not required by law. Electronically signed by: Wilfred Gaspar M.D. 06/09/2023 5:10 PM
--- NOTE | 2023-06-09 19:49 | Electrocardiogram Report ---
Test Reason : Blood Pressure : / mmHG Vent. Rate : 092 BPM Atrial Rate : 092 BPM P-R Int : 226 ms QRS Dur : 104 ms QT Int : 334 ms P-R-T Axes : 050 -66 051 degrees QTc Int : 413 ms Poor data quality, interpretation may be adversely affected Sinus rhythm with 1st degree A-V block Left anterior fascicular block Possible Anterior infarct (cited on or before 06-OCT-2020) Abnormal ECG When compared with ECG of 06-OCT-2020 12:40, No significant change Confirmed by Antoine Bob ([id number]) on 06/09/2023 7:48:53 PM Referred By: REFERRED SELF Confirmed By:Antoine Bob
[2023-06-09] MEDS: MONTELUKAST SODIUM 10 MG TABLET PO SCH (19:58)
[2023-06-09] MEDS: ALPRAZolam 0.5 MG TABLET PO SCH (19:58)
--- NOTE | 2023-06-09 21:08 | Hospitalist Progress Note ---
Date of Service June 09, 2023 Assessment & Plan (1) Sepsis: Plan: 2nd to choledocholithiasis with obstruction. sepsis resolved. blood cultures negative. no cholangitis seen on ERCP today. cont zosyn for now. (2) Common bile duct obstruction: Plan: 2nd to choledocholithiasis. s/p ERCP by [facility] today with removal of sludge and stone. s/p CBD stent and pancreatic duct stent. LFTs improving. Clear liquids. Lower fluid rate. Repeat labs am. Appreciate [facility] assistance. no evidence of acute pancreatitis. (3) Gallstones: Plan: will need future lap volodymyr - [facility] surg assistance appreciated. they advise outpatient f/u with them to coordinate timing of lap volodymyr. (4) Elevated LFTs: Plan: 2nd to #2 improving repeat LFTs am (5) GERD (gastroesophageal reflux disease): Plan: cont PPI (6) Type 2 diabetes mellitus: Plan: cont lantus-novolog control is adequate a1c 8.8% in February 2023 a1c 7.8% today (7) Chronic obstructive pulmonary disease: Plan: no flare at this time (8) Sleep apnea: Plan: CPAP (9) Hypertension: Plan: cont home meds BPs high earlier today - pt admits he was anxious due to concern of finding CBD mass/cancer - he is very relieved that malignancy was not found (10) Generalized anxiety disorder: Plan: cont xanax HS scheduled Plan DVT proph - heparin on hold for ERCP updated at bedside Admission and Anticipated Discharge Date Admission Date: June 07, 2023 Subjective saw patient s/p EUS/ERCP he was eating his clear liquid meal tolerating such without abd pain, nausea or emesis feels good denies any chills no fevers at bedside Review of Systems Review of Systems: gen - no fevers/chills, tolerating liquid diet cv - no cp, no orthopnea pulm - no dyspnea, no cough GI - no diarrhea Physical Exam Physical Exam: gen - NAD, pleasant, sitting at side of bed - looks good eyes - scleral icterus resolved mouth - MMM neck - no JVD heart - RRR, s1 s2, no murmur lungs - CTA b/l abd - soft, NT, ND, BS+, no HSM ext - no edema, pulses 2+ b/l psych - a/o x 3 skin - no jaundice Results & Data Results & Data Vital Signs (Past 12 Hours) Vital Signs Temp Pulse Pulse Pulse Resp BP Pulse Ox 06/09/23 19:19 36.4 C L 49 L 17 160/85 H 94 06/09/23 17:05 36.3 C L 49 L 18 164/79 H 97 06/09/23 16:31 50 L 06/09/23 14:30 36.3 C L 52 L 18 175/92 H 94 06/09/23 14:10 36.4 C L 55 L 16 163/79 H 94 06/09/23 14:00 60 18 162/83 H 94 06/09/23 13:50 36.0 C L 65 18 164/78 H 96 06/09/23 12:08 59 L 18 95 06/09/23 11:40 36.5 C 60 20 189/93 H 93 O2 Del Method 06/09/23 19:19 Room Air 06/09/23 17:05 Room Air 06/09/23 16:31 06/09/23 14:30 06/09/23 14:10 Room Air 06/09/23 14:00 Room Air 06/09/23 13:50 Room Air 06/09/23 12:08 Room Air 06/09/23 11:40 Room Air Laboratory Results Laboratory Results - last 24 hr 06/08/23 06/09/23 06/09/23 23:57 05:31 05:31 WBC 7.95 RBC 3.60 L Hgb 11.4 L Hct 32.7 L MCV 90.8 MCH 31.7 MCHC 34.9 RDW Std Deviation 42.6 RDW Coeff of Joshua 12.9 Plt Count 168 MPV 10.9 Immature Gran % (Auto) 0.6 Neut % (Auto) 59.2 Lymph % (Auto) 25.2 Maury % (Auto) 11.1 Eos % (Auto) 3.4 Baso % (Auto) 0.5 Neut # (Auto) 4.71 Lymph # (Auto) 2.00 Maury # (Auto) 0.88 H Eos # (Auto) 0.27 Baso # (Auto) 0.04 Immature Gran # (Auto) 0.05 PT 11.6 INR 1.1 Sodium Potassium Chloride Carbon Dioxide Anion Gap BUN Creatinine Est Cr Clr Drug Dosing Est GFR ( Amer) Est GFR (Non-Af Amer) BUN/Creatinine Ratio Glucose POC Glucose 81 Estimat Average Glucose Hemoglobin A1c Calcium Total Bilirubin AST ALT Alkaline Phosphatase Total Protein Albumin Globulin Albumin/Globulin Ratio 06/09/23 06/09/23 06/09/23 05:31 05:31 05:59 WBC RBC Hgb Hct MCV MCH MCHC RDW Std Deviation RDW Coeff of Joshua Plt Count MPV Immature Gran % (Auto) Neut % (Auto) Lymph % (Auto) Maury % (Auto) Eos % (Auto) Baso % (Auto) Neut # (Auto) Lymph # (Auto) Maury # (Auto) Eos # (Auto) Baso # (Auto) Immature Gran # (Auto) PT INR Sodium 137 Potassium 3.5 Chloride 102 Carbon Dioxide 28 Anion Gap 7 BUN 7 Creatinine 0.86 Est Cr Clr Drug Dosing 80.9 Est GFR ( Amer) 96.3 Est GFR (Non-Af Amer) 83.1 BUN/Creatinine Ratio 8.1 L Glucose 75 POC Glucose 85 Estimat Average Glucose 177 Hemoglobin A1c 7.8 H Calcium 8.5 L Total Bilirubin 2.0 H D AST 45 H ALT 113 H Alkaline Phosphatase 213 H Total Protein 6.3 Albumin 3.4 Globulin 2.9 Albumin/Globulin Ratio 1.2 06/09/23 06/09/23 06/09/23 11:51 16:15 20:04 WBC RBC Hgb Hct MCV MCH MCHC RDW Std Deviation RDW Coeff of Joshua Plt Count MPV Immature Gran % (Auto) Neut % (Auto) Lymph % (Auto) Maury % (Auto) Eos % (Auto) Baso % (Auto) Neut # (Auto) Lymph # (Auto) Maury # (Auto) Eos # (Auto) Baso # (Auto) Immature Gran # (Auto) PT INR Sodium Potassium Chloride Carbon Dioxide Anion Gap BUN Creatinine Est Cr Clr Drug Dosing Est GFR ( Amer) Est GFR (Non-Af Amer) BUN/Creatinine Ratio Glucose POC Glucose 82 118 H 103 H Estimat Average Glucose Hemoglobin A1c Calcium Total Bilirubin AST ALT Alkaline Phosphatase Total Protein Albumin Globulin Albumin/Globulin Ratio PG Care Time/CCT Total # of Minutes Spent Total Time Spent with Patient: Total time spent is greater than 50% in coordination of care (as documented) at patient's floor/unit and/or counseling patient: Coding Level of Care Code 25920 SUB INP/OBS CARE 2/35MIN Diagnoses Sepsis A41.9 Sepsis acute organ dysfunction status: unspecified Sepsis type: sepsis due to unspecified organism Common bile duct obstruction K83.1 Gallstones K80.20 Elevated LFTs R79.89 GERD (gastroesophageal reflux disease) K21.9 Type 2 diabetes mellitus E11.9 Chronic obstructive pulmonary disease J44.9 Sleep apnea G47.30 Hypertension I10 Hypertension type: essential hypertension Generalized anxiety disorder F41.1 (1) Sepsis Sepsis acute organ dysfunction status: unspecified Sepsis type: sepsis due to unspecified organism Qualified Code(s): A41.9 - Sepsis, unspecified organism (9) Hypertension Hypertension type: essential hypertension Qualified Code(s): I10 - Essential (primary) hypertension
[2023-06-10] MEDS: INSULIN ASPART PER UNIT CHARGE SC SCH ×3 (00:06→11:46)
[2023-06-10] MEDS: PIPERACILLIN/TAZOBACTAM 4.5 GM in DEXTROSE 5% 100 ML IV SCH ×2 (00:06→08:32)
[2023-06-10] MEDS: LACTATED RINGER'S 1,000 ML IV SCH (04:17)
[2023-06-10 07:04] LABS: Basophils # (auto) 0.03 K/uL (0-0.2); Basophils % (auto) 0.4 %; Eosinophils # (auto) 0.27 K/uL (0-0.50); Hematocrit (blood only) 34.1 % (42.0-52.0); Hemoglobin 11.7 g/dl (14.0-18.0); Immature Granulocytes # (auto) 0.05 K/uL (0.01-0.20); Immature Granulocytes % (auto) 0.7 %; Lymphocytes # (auto) 1.69 K/uL (1.2-3.4); Lymphocytes % (auto) 24.9 %; Mean Corpuscular Hemoglobin 31.4 pg (25.0-34.0); Mean Corpuscular Hgb Conc 34.3 g/dL (32.0-36.0); Mean Corpuscular Volume 91.4 fL (80.0-100.0); Mean Platelet Volume 10.6 fL (9.4-12.4); Monocytes # (auto) 0.71 K/uL (0.11-0.59); Monocytes % (auto) 10.4 %; Neutrophils # (auto) 4.05 K/uL (1.40-6.50); Neutrophils % (auto) 59.6 %; Platelet Count 186 K/uL (130-400); RDW Coefficient of Variation 12.8 % (11.5-14.5); RDW Standard Deviation 42.1 fL (36.4-46.3); Red Blood Count 3.73 M/uL (4.70-6.10)
[2023-06-10 07:24] LABS: Albumin Globulin Ratio 1.1 (0.9-2); Albumin Level 3.4 gm/dl (3.4-5.0); BUN Creatinine Ratio 7.5 (10-20); Bilirubin,Total 1.8 mg/dl (0.2-1.0); Calcium 8.9 mg/dl (8.6-10.3); Est GFR (African American) 99.2 ml/min; Est GFR (Non-African American) 85.6 ml/min; Potassium 3.6 mmol/L (3.5-5.1); Total Protein 6.4 gm/dl (6.0-8.3)
[2023-06-10] MEDS: carvediloL 25 MG TAB PO SCH (07:42)
[2023-06-10] MEDS ORDERED: carvediloL 12.5 MG TAB PO SCH (08:30)
[2023-06-10] MEDS: POTASSIUM CHLORIDE CRTAB 20 MEQ TABCR PO SCH (08:33)
[2023-06-10] MEDS: CHOLECALCIFEROL 1,000 UNITS 25 MCG TAB PO SCH (08:34)
[2023-06-10] MEDS: amLODIPine BESYLATE 5 MG TAB PO SCH (08:34)
[2023-06-10] MEDS: DOXAZosin MESYLATE TAB 2 MG TAB PO SCH (08:34)
[2023-06-10] MEDS: FEXOFENADINE HCL 180 MG TAB PO SCH (08:34)
[2023-06-10] MEDS: VALSARTAN 80 MG TAB PO SCH (08:35)
[2023-06-10] MEDS: VITAMIN B COMPLEX TAB PO SCH (08:35)
[2023-06-10] MEDS: PANTOprazole 40 MG TAB PO SCH (08:35)
[2023-06-10] MEDS: FLUTICASONE/VILANTEROL 200/25MCG 14 PUFFS/INHALER INH SCH (08:35)
[2023-06-10] MEDS: LANTUS PER UNIT CHARGE SQ SCH (08:40)
--- NOTE | 2023-06-10 12:48 | Surgery Progress Note ---
Date of Service June 10, 2023 Assessment & Plan (1) Gallstones: Plan: will need lap volodymyr as outpatient F/U with Dr Garcia Ok to discharge per surgey Present on Admission?: Yes Admission and Anticipated Discharge Date Admission Date: June 07, 2023 Subjective patient doing well after ERCP no pain taking po Review of Systems Constitutional: no fever and no chills Respiratory: no dyspnea Cardiovascular: no chest pain Gastrointestinal: no abdominal pain, no nausea and no vomiting Genitourinary: no dysuria Physical Exam Constitutional: WD/WN, vitals as above Eyes: PERRL, conjunctivae normal, anicteric sclerae Neck: trachea midline Respiratory: normal respiratory effort, lungs clear to auscultation Cardiovascular: RRR, no murmur, no edema Gastrointestinal (Abdomen): Inspection/Auscultation: abdomen normal to inspection, + abdomen distended and normal bowel sounds Percussion/Palpation: abdomen soft; abdomen nontender, no guarding and abdomen not rigid Musculoskeletal: Head/Neck/Chest: normocephalic and head atraumatic Skin: no rashes, warm and dry Results & Data Vital Signs (Past 12 Hours) Vital Signs Temp Pulse Pulse Resp BP Pulse Ox O2 Del Method 06/10/23 11:16 36.8 C 57 L 18 162/92 H 97 Room Air 06/10/23 09:00 54 L 06/10/23 08:08 36.9 C 56 L 18 174/88 H 93 Room Air 06/10/23 02:40 36.8 C 60 18 146/80 H 94 Room Air
--- NOTE | 2023-06-10 13:58 | Discharge Summary ---
Date of Service date of admission - June 07, 2023 date of discharge - June 10, 2023 Admission HPI Per Admitting Provider Fever, nausea, chills and stomach pain. Had episode of pain 2 days ago, and 3 prior episodes which were intermittent in the last month. Has not noticed any exacerbating factors or remitting factors. Did eat breakfast before current episode of pain BMs generally brown. Last week 'was really weird but white/miriam colored.' HTN, no hx of heart problems/CAD/Heart failure. 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 No sx with performances No shortness of breath No tobacco/ETOH use FHX: Sister with gallstones 'a long time ago.' Older brother with the same. FHx of CAD in older age in brother, mother. Father had a pacemaker in old age., Stress test 5 years ago stopped due to HTN, bu tno ischemic change within test as noted. +nausea. +emesis today, nonbloody. Medical History: Reviewed Medications: Reviewed Surgical History: Reviewed Family history: Reviewed Allergies: Reviewed Social History: No tobacco. Social etoh. 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 No hx of withdrawl. Code Status: FUll Code Principal Diagnosis 1. Choledocholithiasis 2. Gallstones 3. Abnormal liver tests - due to #1 - nearly resolved 4. Hypertension 5. Duodenal polyp 6. T2DM 7. Sepsis 2nd to #1 - resolved Discharge Exam gen - NAD, pleasant, looks great eyes - scleral icterus resolved mouth - MMM neck - no JVD heart - RRR, s1 s2, no murmur lungs - CTA b/l abd - soft, NT, ND, BS+, no HSM ext - no edema, pulses 2+ b/l psych - a/o x 3; anxious skin - no jaundice Discharge Data Allergies Allergy/AdvReac Type Severity Reaction Status Date / Time erythromycin base AdvReac Intermediate GI UPSET Verified 06/15/23 10:55 Iodinated Contrast Media AdvReac Intermediate elevated Verified 06/15/23 10:55 creatinine meperidine AdvReac Intermediate gi upset Verified 06/15/23 10:55 morphine AdvReac Intermediate n/v Verified 06/15/23 10:55 codeine AdvReac Mild NAUSEA Verified 06/15/23 10:55 Consultations Gastroenterology - Harry Self MD ([facility]); Davy Perkins MD ([facility]) General Surgery - Cristian Garcia DO Procedures Performed Operation Date: 06/09/23 14:00 Actual Procedures Endoscopic Retrograde Cholangiopancreato sphyncterotomy, dialtation and extraction of stones, two stents placed, , (Not Applicable) - Davy Perkins MD Endoscopic ultrasound(Not Applicable) - Davy Perkins MD Upper gastrointestinal endoscopy(Not Applicable) - Davy Perkins MD Endoscopic Ultrasound: Findings: There was no sign of significant endosonographic abnormality in the ampulla. There was dilation in the common bile duct which measured up to 15 mm. One stone was visualized endosonographically in the common bile duct. The stone measured 14 mm in greatest dimension. The stone was round. It was hyperechoic and characterized by shadowing. There was no sign of significant endosonographic abnormality in the visualized portion of the liver. Homogeneous parenchyma was identified. There was no sign of significant endosonographic abnormality in the entire pancreas. The pancreatic duct measured up to 2 mm in diameter. EGD: normal esophagus, normal stomach, normal duodenum. ERCP: Impression: - Choledocholithiasis was found. Complete removal was accomplished by biliary sphincterotomy and balloon extraction. - A single 8 mm duodenal polyp. - Two plastic biliary stents were placed into the common bile duct. - One uncovered metal pancreatic stent was placed into the ventral pancreatic duct. Recommendation: - Repeat ERCP in 3 months to remove stent and EMR the duodenal polyp. - Follow up with General surgery for cholecystectomy. Echocardiogram: * EF 60-65% * moderate LVH * dilated RV but normal RV function * normal valve function Ordered Studies Chest X-Ray 06/07/23 14:46 XR chest 1V portable HISTORY: 77 years-old Male Sepsis COMPARISON: 07/13/2021 TECHNIQUE: AP view of the chest FINDINGS: Cardiac silhouette is enlarged. No pneumothorax, pleural effusion, airspace consolidation or pulmonary edema. Degenerative changes of the shoulders and spine. IMPRESSION: No acute process. ACT 112: Negative or not required by law. The above report was generated using voice recognition software. It may contain grammatical, syntax or spelling errors. Electronically signed by: Wilfred Gaspar M.D. 06/07/2023 4:06 PM Chest/Abdomen X-ray 06/07/23 16:04 PA CHEST RADIOGRAPH AND UPRIGHT AND SUPINE AP RADIOGRAPHS OF THE ABDOMEN CLINICAL HISTORY: ruq epigastric pain COMPARISON STUDY: Chest CT July 13, 2021. Chest radiograph performed earlier today. CT of the abdomen and pelvis March 18, 2019. MRCP June 25, 2019. FINDINGS: No pneumothorax or pleural effusion is present. No consolidation to suggest pneumonia. Cardiomediastinal silhouette is unremarkable. There is no free air. The bowel gas pattern is normal. Pelvic calcifications favor phleboliths and vascular calcifications. IMPRESSION: 1. No free air or evidence of a bowel obstruction. 2. No acute cardiopulmonary findings. ACT 112: Negative or not required by law. Electronically signed by: Dannie Schultz M.D. 06/07/2023 6:39 PM Gallbladder Ultrasound 06/07/23 16:04 US gallbladder CLINICAL HISTORY: Right upper quadrant abdominal pain. COMPARISON STUDY: CT of the abdomen and pelvis March 18, 2019. MRCP June 25, 2019. 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 No additional hepatic lesions are identified. There is moderate intrahepatic biliary ductal dilatation. There is marked dilatation of the common bile duct, measuring approximately 2 cm in caliber. No common bile duct calculi are identified although the distal common bile duct is obscured. The gallbladder is moderately distended. Sonographic Haynes sign could not be assessed for in this patient. There is borderline gallbladder wall thickening. No pericholecystic fluid is noted. Pancreatic body is normal. Head and tail are partially obscured. Caliber of the pancreatic duct is at the upper limits of normal. There is no right hydronephrosis. IMPRESSION: 1. Marked extra and moderate intrahepatic biliary ductal dilatation. This raises possibility of a sonographically occult common bile duct calculus or mass. Cor relation with obstructive liver function tests is recommended. MRCP could be obtained for further evaluation. 2. Moderate gallbladder distention and borderline gallbladder wall thickening. No gallstones. No convincing evidence for acute cholecystitis although a hepatobiliary scan could be obtained to exclude this possibility. 3. Partially obscured pancreas. ACT 112: Negative or not required by law. Electronically signed by: Dannie Schultz M.D. 06/07/2023 6:01 PM Cholangiopancreatography MRI 06/08/23 00:01 Exam(s): MRI MRCP EXAM: MR Abdomen Without Intravenous Contrast, MRCP Protocol CLINICAL HISTORY: Reason for exam: ?choledoco vs mass. TECHNIQUE: Multiplanar magnetic resonance images of the abdomen without intravenous contrast using MRCP protocol. COMPARISON: 06/25/2019. FINDINGS: Lower thorax: Trace bilateral pleural effusions. Mild bilateral lower lobe atelectasis. Mild cardiomegaly. Bile ducts: Distention of the common bile duct to the level of the spine without voiding with no tapering seen and therefore, cannot exclude an ampullary lesion or stricture. Gallbladder: Unremarkable. No stones. Liver: Fluid filled structure consistent with a cyst within the right liver lobe measuring 7.2 x 6.2 x 4.5 cm. Otherwise unremarkable liver. Pancreas: Unremarkable. Normal pancreatic duct. Spleen: Unremarkable. No splenomegaly. Adrenals: Unremarkable. No mass. Kidneys and ureters: Unremarkable. No hydronephrosis. Stomach and bowel: Distention of the colon bile duct up to maximum diameter of 15.6 mm in the cephalad portion. Just below this level there is a filling defect consistent with a common bile duct stone measuring 1. 4 cm. There is mild distention of the remainder of the distal common bile duct up to maximum 1.4 cm. Normal duodenal C-loop. IMPRESSION: 1. Dilatation of the common bile duct with a 1.4 cm in the mid outer aspect of the common bile duct as described. Cannot exclude ampullary lesion or stricture. If indicated, this findings may be further characterized with ERCP if clinically indicated. 2. 7.2 cm right liver lobe cyst. 3. Trace bilateral pleural effusions with mild bilateral lower lobe atelectasis. Electronically signed by: Letty Aceves MD 06/08/23 03:23 AM Endo Retro Cholangiopancreatogram 06/09/23 14:00 FL ERCP biliary ductal CLINICAL HISTORY: EXPLORE DUCTS COMPARISON STUDY: 06/08/2023 FLUOROSCOPY TIME: 1 minute 7 seconds FLUOROSCOPY IMAGES: 11 EXPOSURE DOSE: 67.1 mGy FINDINGS: Endoscope within the duodenum. Cannulation of the common bile and pancreatic ducts. Retrograde injection of contrast into the dilated common bile duct with balloon sweep. Intrahepatic and extrahepatic biliary ductal dilation. Status post placement of pancreatic and common bile duct stents. IMPRESSION: Fluoroscopic assistance as above. ACT 112: Negative or not required by law. Electronically signed by: Wilfred Gaspar M.D. 06/09/2023 5:10 PM Hospital Course (1) Sepsis: 2nd to choledocholithiasis with obstruction. sepsis resolved. blood cultures negative. no cholangitis seen on ERCP. received IV Zosyn while here, and will complete a few days of oral Augmentin at home. (2) Common bile duct obstruction: 2nd to choledocholithiasis. s/p ERCP by [facility] - Dr Perkins - with removal of sludge and stone. No purulence noted in the CBD ruling out cholangitis. s/p CBD stent and pancreatic duct stent. LFTs improved following ERCP. Resumed on clear liquid diet, then advanced without difficulty. No evidence of acute pancreatitis while here. Low fat diet at discharge, f/u with gen surg for cholecystectomy, and repeat ERCP in 3 months for stent retrieval. HOLD ASPIRIN until 06/14/23. HOLD anti-inflammatory pills for same amount of time. (3) Gallstones: will need future lap volodymyr - [facility] gen surg assistance appreciated while here. they advise outpatient f/u with them to coordinate timing of lap volodymyr. (4) Elevated LFTs: 2nd to #2 improving/resolving AST was normal on day of discharge ALT was <100 on day of discharge will need repeat LFTs within 5-7 days of discharge to ensure normalization (5) GERD (gastroesophageal reflux disease): cont PPI (6) Type 2 diabetes mellitus: Hba1c 8.8% in February 2023 Hba1c 7.8% this admission resume metformin at discharge resume semaglutide at discharge (7) Chronic obstructive pulmonary disease: no flare at this time (8) Sleep apnea: cont CPAP (9) Hypertension: Cont home meds BPs were high throughout the admission likely due to anxiety He also had significant bradycardia on telemetry with HRs in the 40s and 50s Coreg dose was reduced from 25mg BID to 12.5mg BID at discharge He will monitor his pulse & BPs at home f/u PCP for this (10) Generalized anxiety disorder: cont xanax HS scheduled Plan Duodenal polyp - seen on ERCP f/u with Dr Perkins post-discharge for this from [facility] Total Time Total Time Spent Total Time Spent (In Minutes): 40 Discharge Plan Discharge Items Patient Disposition: Home - Self-Care Reason For Visit: Obstructed gall bladder duct Discharge Diagnosis: 1. Choledocholithiasis (gallstones in the bile duct) - resolved with ERCP procedure 2. Gallstones 3. Abnormal liver tests - due to #1 - nearly resolved 4. Hypertension 5. Duodenal polyp - gastroenterology will address this in the future Activity: As commented below Activity Comment: gradually increase activities over 2-3 days Driving/Machine Use: Resume 1 day after discharge Non-emergency contact: Primary Care Provider Call non-emergency contact if: you have any medication questions, your symptoms worsen and you have a fever Follow-up/Referrals: Cristian Garcia DO [Surgeon] - 06/20/23 9:15 am (Please call the office to schedule follow up with Dr. Garcia within 1-2 weeks to discuss outpatient removal of your gallbladder) Demetrius Vazquez DO [Primary Care Provider] - 06/15/23 2:00 pm (5-7 days ) Davy Perkins MD [Physician] - (3 months for removal of biliary stents ) Diet: Carb Consistent or DM2 and Low Fat Addtl Attending Provider Instructions: Mr Connor, You were hospitalized for abdominal pain, abnormal liver tests, and an obstructed bile duct. You were seen by both general surgery and gastroenterology. Gastroenterology recommended a procedure called "ERCP" to unblock the bile duct. This procedure took place on 06/09/23. During the ERCP gallstones and sludge were removed from the bile duct, and stents were placed into the duct. Your liver function tests continue to improve. These will return to normal over the next week. Your abdominal pain has resolved and you are tolerating a diet. General surgery is recommending removal of your gall bladder in the near future as you have additional gallstones in the gall bladder. Recommendations - 1. Low fat diabetic diet. See handouts on "low fat" cooking & foods. 2. Amoxicillin-clavulanate 875mg twice daily x 3 days, first dose later today. This is your antibiotic. Most common side effect is diarrhea. 3. LOWER your carvedilol from 25mg twice daily to 12.5mg twice daily. Please keep an eye on your pulse (heart rate) and blood pressure at home. 4. Resume your usual diabetes medications. 5. HOLD your aspirin until 06/14/23. You can resume it on this date. 6. DO NOT TAKE any [id number]-fdryufq motrin, ibuprofen, naprosyn, aleve, etc. 7. Have your liver function tests repeated at time of follow-up with Dr Vazquez in 1 week. Follow-up appointments - see separate section Return to [facility] if - * you have fever over 100 degrees * you have black/dark/tarry stools * you have recurrent abdominal pains * you have nausea and/or vomiting * you develop severe diarrhea * any other concerns It was our pleasure to care for you! -Dr Melendez Pending Studies at Discharge: No Stand-Alone Forms: My [facility], Smoking Cessation Medications and DC Order Prescriptions: Continued cyclosporine 0.05 % dropperette 1 drops OP BID Qty: 30 0RF nystatin 500,000 unit tablet 500,000 unit PO TID Qty: 270 5RF montelukast [Singulair] 10 mg tablet 10 mg PO QPM potassium chloride 20 mEq tablet extended release 20 meq PO DAILY Qty: 90 3RF doxazosin 2 mg tablet 2 mg PO BID Qty: 180 3RF valsartan 160 mg tablet 160 mg PO BID Qty: 180 3RF (DME) AcceleraTouch Verio test strips Strip See Rx Instructions .Route Qty: 50 3RF Rx Instructions: As directed (DME) lancets [AcceleraTouch Delica Plus Lancet] 30 gauge misc See Rx Instructions .Route Qty: 100 3RF Rx Instructions: As directed Rybelsus 3 mg tablet 3 mg PO DAILY 30 Days Qty: 30 0RF alprazolam [Xanax] 0.5 mg tablet 0.5 mg PO QPM Qty: 30 0RF amlodipine 5 mg tablet 5 mg PO DAILY Qty: 90 3RF multivitamin Tablet 1 tab PO QAM coenzyme Q10 100 mg tablet 100 mg PO QAM glucosamine-chondroitin 900 mg tablet 900 mg PO BID pantoprazole [Protonix] 40 mg tablet,delayed release (DR/EC) 40 mg PO DAILY ascorbate calcium (vitamin C) 500 mg tablet 500 mg PO QAM fexofenadine 180 mg tablet 180 mg PO QAM guaifenesin 600 mg tablet extended release 12hr 600 mg PO Q12H (DME) blood-glucose meter [AcceleraToAdrenaline Mobility Verio Flex Start] Kit See Rx Instructions .Route Qty: 1 0RF Rx Instructions: As directed vitamin B complex Capsule 1 cap PO QAM omega-3 fatty acids 1,000 mg Capsule 1,000 mg PO DAILY cholecalciferol (vitamin D3) [Vitamin D3] 25 mcg (1,000 unit) Capsule 25 mcg PO DAILY budesonide-formoterol [Symbicort] 160-4.5 mcg/actuation Hfa Aerosol Inhaler 1 inh INHALATION BID torsemide 20 mg tablet 10 mg PO QAM metformin 500 mg tablet extended release 24 hr 500 mg PO BID sucralfate 1 gram tablet 1 g PO BID PRN (Reason: Heartburn) Rx Instructions: PER PT "USUALLY TAKE AT HS". carboxymethylcellulose sodium [Refresh Tears] 0.5 % Drops 1 drp OPHTHALMIC (EYE) DIRECTED PRN (Reason: Dry Eyes) calcium citrate-vitamin D3 250 mg-5 mcg (200 unit) Tablet 1 tab PO BID Changed carvedilol 25 mg tablet 12.5 mg PO BID Qty: 180 3RF Rx Instructions: must administer with a meal/food Held aspirin 81 mg tablet,delayed release (DR/EC) 81 mg PO DAILY Qty: 30 2RF Hold Instructions: Resume on 06/14/23. No Action magnesium oxide 500 mg tablet 500 mg PO DAILY ketoconazole 2 % cream 1 applic topical DAILY Qty: 30 0RF ciclopirox 8 % solution 1 applic topical DAILY Discharge Orders: Discharge Order (Routine); Ordered 06/10/23 Ordered By: Mark Davies/Other Patient Handouts: Low-Fat Cooking Tips, Managing Type 2 Diabetes, What Are Gallstones, ERCP Dc, ED Diet, Low Fat Admission Data Admit Date/Time: 06/07/23 19:02 Attending Provider: Mark Melendez Admit Provider: Azar Moctezuma Primary Care Provider: Demetrius Vazquez Other Providers: Harry Self Jr ; Azar Moctezuma ; Cristian Garcia Other Interventions: Discharge Summary Assessment (RN) Last Done: 06/10/23 14:05 Coding Level of Care Code 61852 INP/OBS DISCH >30 MIN Diagnoses Sepsis A41.9 Sepsis acute organ dysfunction status: unspecified Sepsis type: sepsis due to unspecified organism Common bile duct obstruction K83.1 Gallstones K80.20 Elevated LFTs R79.89 GERD (gastroesophageal reflux disease) K21.9 Type 2 diabetes mellitus E11.9 Chronic obstructive pulmonary disease J44.9 Sleep apnea G47.30 Hypertension I10 Hypertension type: essential hypertension Generalized anxiety disorder F41.1
== END 2023-06-10 14:52 | disposition home or self-care (01) | DRG 872 ==
LOC: ED 14:32 → SUATTDRO 19:02 → 2E 19:02
DX: J45.909 Unspecified asthma, uncomplicated; I50.32 Chronic diastolic (congestive) heart failure; A41.9 Sepsis, unspecified organism; J44.9 Chronic obstructive pulmonary disease, unspecified; F41.1 Generalized anxiety disorder; Z96.652 Presence of left artificial knee joint; I11.0 Hypertensive heart disease with heart failure; K31.7 Polyp of stomach and duodenum; I25.10 Atherosclerotic heart disease of native coronary artery without angina pectoris; E11.9 Type 2 diabetes mellitus without complications; K80.71 Calculus of gallbladder and bile duct without cholecystitis with obstruction; G47.33 Obstructive sleep apnea (adult) (pediatric); Z79.84 Long term (current) use of oral hypoglycemic drugs; Z91.041 Radiographic dye allergy status; R74.01 Elevation of levels of liver transaminase levels; Z79.82 Long term (current) use of aspirin; R17 Unspecified jaundice; K21.9 Gastro-esophageal reflux disease without esophagitis